=== PATIENT | female | born 1945 | race Caucasian/White ===

== ENCOUNTER 2018-08-01 15:33 | Inpatient (IN) ==
[2018-08-01] MEDS ORDERED: 0.9 % Sodium Chloride 1,000 ML IVC ONE (15:44)
[2018-08-01] MEDS ORDERED: Ondansetron 4 MG/2 ML VIAL IVP ONE (15:44)
--- NOTE | 2018-08-01 15:50 | Emergency Department Note ---
Disposition Clinical Impression: Weakness, Hypokalemia Pneumonia Qualifiers: Pneumonia type: due to unspecified organism Laterality: left Lung location: lower lobe of lung Qualified Code(s): J18.1 - Lobar pneumonia, unspecified organism Disposition: Admitted As Inpatient Condition: Fair Referrals: Temo Madrigal MD [Primary Care Provider] - Time of Disposition: 18:28 General Adult HPI - General Stated complaint: Flu Time Seen by Provider: 08/01/18 15:38 Source: patient Mode of arrival: ambulatory Limitations: no limitations Nursing Notes Reviewed: Yes Vital Signs Reviewed: Yes - History of Present Illness HPI Narrative: 72-year-old female with a history of dementia, paroxysmal A. fib, hypertension presents from [facility] for concerns of generalized weakness. Patient's initial complaint was the flu however that was not mentioned during the history or physical exam. Patient states that she has had increased urination over the past 4 hours. Also notes increasing generalized weakness. Decreased appetite. Reports increased urinary frequency. Decreased by mouth intake. Patient has had some nausea vomiting and abdominal pain. Patient's also had some lower abdominal discomfort over the past 24 hours. Patient denies any chest pain, fevers or cough. Family at bedside states the patient has been intermittently confused as well over the past 24 hours. Patient states she has had developed worsening upper extremity tremors and has a possible diagnosis of parkinsonian. Patient's family states she does have a history of urinary tract infections. Presents with from [facility]. - Related Data Home Medications Medication Instructions Recorded Confirmed Alprazolam [Xanax] 0.25 mg PO TID PRN 10/16/15 09/26/16 Atorvastatin [Lipitor] 20 mg PO DAILY 10/16/15 09/26/16 Carbidopa/Levodopa [Sinemet] 1 tab PO BID 10/16/15 09/26/16 Cranberry 450 mg PO DAILY 10/16/15 09/26/16 Diltiazem HCl [Diltiazem 24Hr Cd] 120 mg PO DAILY 10/16/15 09/26/16 Divalproex (12 HR) [Depakote (12 250 mg PO BID 10/16/15 09/26/16 HR)] Ergocalciferol (VITAMIN D2) 50,000 unit PO QWEEK 10/16/15 09/26/16 [Vitamin D2 (50,000 UNIT)] Folic Acid 0.4 mg PO DAILY 10/16/15 09/26/16 Gabapentin [Neurontin] 800 mg PO TID 10/16/15 09/26/16 LevETIRAcetam [Keppra] 500 mg PO BID 10/16/15 09/26/16 Melatonin 5 mg PO HS 10/16/15 09/26/16 Mirabegron [Myrbetriq] 50 mg PO HS 10/16/15 09/26/16 Mirtazapine [Remeron] 15 mg PO HS 10/16/15 09/26/16 Omeprazole [PriLOSEC] 20 mg PO DAILY 10/16/15 09/26/16 Phenytoin [Dilantin] 100 mg PO TID 10/16/15 09/26/16 Ropinirole HCl [Requip] 2 mg PO HS 10/16/15 09/26/16 TraZODone 50 mg PO HS 10/16/15 09/26/16 Triamterene/HCTZ 37.5/25mg 1 tab PO QAM 10/16/15 09/26/16 [Dyazide] Bismuth Subsalicylate 30 ml PO Q4H PRN 03/22/16 09/26/16 [PEPTO-BISMOL (262mg/15mL) Susp] Budesonide/Formoterol 160/4.5 1 puff IH BIDR 03/22/16 09/26/16 [Symbicort 160/4.5] Cyclobenzaprine [Flexeril] 10 mg PO TID PRN 03/22/16 09/26/16 Nitrofurantoin (BID) [Macrobid] 100 mg PO DAILY 03/22/16 09/26/16 Ondansetron HCl 4 mg PO Q6H PRN 03/22/16 09/26/16 Potassium Chloride [K-Tab ER] 20 meq PO DAILY 03/22/16 09/26/16 Theophylline Anhydrous [Gary-24] 300 mg PO DAILY 03/22/16 09/26/16 Tiotropium [Spiriva] 18 mcg IH DAILY 03/22/16 09/26/16 Calcium Polycarbophil [Fiber 625 mg PO HS 09/26/16 09/26/16 Laxative] Cetirizine HCl [Zyrtec] 10 mg PO DAILY 09/26/16 09/26/16 Ketotifen Fumarate [Zaditor] 1 drp OP BID 09/26/16 09/26/16 Magnesium Hydroxide/Al Hydrox 30 ml PO HS 09/26/16 09/26/16 [Mag-Al Liquid] Polyethylene Glycol 3350 [MiraLAX 1 scoop PO DAILY 09/26/16 09/26/16 Powder Bulk 17.9 Oz] Sennosides [Senna] 17.2 mg PO BID 09/26/16 09/26/16 Threonine [l-Threonine] 200 mg PO BID 09/26/16 09/26/16 Previous Rx's Medication Instructions Recorded Docusate [Colace] 100 mg PO BID #30 capsule 03/22/16 Enoxaparin [Lovenox] 40 mg SQ DAILY #7 syr 09/29/16 Morphine Immed Rel [Morphine 15 mg PO BID #14 tablet 09/29/16 Sulfate] OxyCODONE Immed Rel [Roxicodone 5 5 mg PO Q4HR PRN #14 tablet 09/29/16 MG] Allergies Allergy/AdvReac Type Severity Reaction Status Date / Time IVP Dye Allergy Anaphylaxis Uncoded 09/26/16 00:29 All systems ED: reviewed and negative except as stated. Constitutional: Denies: fever Cardiovascular: Denies: chest pain Respiratory: Denies: cough Gastrointestinal: Reports: abdominal pain, nausea, vomiting, diarrhea Past Medical History - Past Medical History Source: patient, obtained from family Medical history: Reports: atrial fibrillation, GERD, hypertension, migraine, seizures, other Surgical history: Reports: hysterectomy, other Psychiatric history: Reports: anxiety POLISHER BRASS history: Reports: no POLISHER BRASS history - Social History Smoking Status: Former smoker Smokeless Tobacco Status: No Alcohol use: Reports: none Drug use: Reports: unknown Physical Exam - General Limitations: no limitations General appearance: alert, in no apparent distress - Head Head exam: atraumatic - Eye Eye exam: Present: normal appearance, PERRL, EOMI. Absent: miosis, mydriasis - ENT ENT exam: normal exam - Neck Neck exam: Present: normal inspection - Chest Chest inspection: Present: normal inspection - Respiratory Respiratory exam: Present: normal lung sounds bilaterally. Absent: respiratory distress - Cardiovascular Cardiovascular exam: Present: regular rate, normal rhythm. Absent: systolic murmur - Abdominal Exam Abdominal exam: Present: soft, Non-Tender. Absent: guarding, rebound - Extremities Exam Extremities exam: Present: normal inspection, pedal edema (Trace bilateral), other (Tremors of the upper extremity bilaterally.) - Back Exam Back exam: Present: normal inspection - Neurological Exam Neurological exam: Present: alert, oriented X3, CN II-XII intact - Expanded Neurological Exam Patient oriented to: Present: person, place, time Speech: Present: fluid speech Cranial nerves: EOM function (II, III, IV, ): Normal, facial sensation (V): Normal, facial palsy (VII): Normal, spinal accessory function (XI): Normal, tongue deviation (XII): Normal Motor strength - LUE: 5/5 Motor strength - RUE: 5/5 Motor strength - LLE: 4/5 Motor strength - RLE: 4/5 Coma Scale Eye Opening: Spontaneous Coma Scale Motor Response: Obeys Commands Coma Scale Verbal Response: Oriented Coma Scale Total: 15 - Skin Skin exam: Present: warm, dry, intact, normal color. Absent: rash Course Course Narrative: Patient's a 72-year-old female presents primarily for generalized weakness. Concerns initially for metabolic as well as infectious etiology. Patient's daughter states she has has been having higher blood sugars with no history of diabetes. Patient also has history of UTI with increased urinary frequency. Will obtain extensive labs, urinalysis. Patient also get a CT of the head as well as abdomen pelvis given stated complaints of altered mental status periods of confusion and abdominal pain. Disposition likely be admission. - Reevaluation(s) Reevaluation #1: Patient's resting comfortably. No acute distress. Mental status unchanged. Family and patient is agreeable with admission. Time: 18:28 Vital Signs Temperature 99.0 F 08/01/18 15:48 Pulse Rate 96 08/01/18 15:48 Respiratory Rate 15 08/01/18 15:48 Blood Pressure 140/65 08/01/18 15:48 O2 Sat by Pulse Oximetry 95 08/01/18 15:48 Temperature 99.0 F 08/01/18 15:48 Pulse Rate 96 08/01/18 15:48 Respiratory Rate 15 08/01/18 15:48 Blood Pressure 140/65 08/01/18 15:48 O2 Sat by Pulse Oximetry 95 08/01/18 15:48 Oxygen Delivery Oxygen Delivery Room Air Medical Decision Making - [facility] Narrative Medical decision making narrative: Patient presented for generalized weakness. Patient had a fairly extensive ED evaluation with a CT of the head abdomen pelvis as well as a chest x-ray. Patient also had labs as well as urinalysis. Labs show mild leukocytosis. Patient also has findings of pneumonia on chest x-ray as well as CT. Patient was started on Levaquin. Patient's CT of the head was unremarkable. Patient's CT of the abdomen and pelvis shows no acute abnormality however the patient does have some mild CBD dilation. Correlate clinically the patient does not have any elevation in total bilirubin or significant right upper quadrant tenderness. Patient's abdominal pain was in the lower abdomen. Urinalysis was unremarkable. Given the patient's generalized weakness as well as findings of pneumonia on chest x-ray the patient will be admitted to hospital service for further evaluation and monitoring. Potassium was repleted. - Lab Data Lab results reviewed: Yes I reviewed the patient's lab results. Result diagrams: 08/01/18 16:16 08/01/18 16:16 Lab Results 08/01/18 08/01/18 08/01/18 Range/Units 16:16 16:16 16:16 WBC 12.4 H (4.3-11.1) K/mcL RBC 4.11 (3.82-4.97) M/mcL Hgb 12.4 (11.5-15.4) g/dL Hct 36.6 (35.3-44.9) % MCV 89.1 (83.0-100.0) fL MCH 30.2 (28.0-33.3) pg MCHC 33.9 (31.6-35.5) g/dL RDW 12.1 (11.5-14.5) % Plt Count 126 L (140-400) K/mcL MPV 9.8 (9.4-12.4) fL Immature Gran % 0.5 (0-4) % Seg Neutrophils % 84.3 % Lymphocytes % 6.6 % Monocytes % 8.3 % Eosinophils % 0.1 % Basophils % 0.2 % Neutrophils # 10.4 H (1.6-8.9) K/mcL Lymphocytes # 0.8 (0.6-4.6) K/mcL Monocytes # 1.0 (0.0-1.3) K/mcL Eosinophils # 0.0 (0.0-0.6) K/mcL Basophils # 0.0 (0.0-0.2) K/mcL PT 16.7 H (9.4-12.1) Seconds INR 1.5 VBG pH (7.32-7.42) pH Units VBG pCO2 (41-51) mmHg VBG pO2 (25-50) mmHg VBG HCO3 (21-27) mEq/L Sodium 130 L (136-145) mEq/L Potassium 3.1 L (3.5-5.1) mEq/L Chloride 93 L (98-107) mEq/L Carbon Dioxide 31 H (23-29) mEq/L BUN 19 (8-23) mg/dL Creatinine 0.60 (0.60-1.20) mg/dL Est GFR ( Amer) > 60 (> 60) Est GFR (Non-Af Amer) > 60 (> 60) BUN/Creatinine Ratio 32 H (6-26) Glucose 120 H (70-105) mg/dL Calculated Osmolality 273 L (280-300) Lactic Acid (0.5-2.2) mmol/L Calcium 8.6 (8.6-10.3) mg/dL Magnesium (1.6-2.6) mg/dL Total Bilirubin 0.6 (0.3-1.0) mg/dL Direct Bilirubin 0.3 H (0.0-0.2) mg/dL Indirect Bilirubin 0.3 (0.0-1.2) mg/dL AST 23 (13-39) Units/L ALT 6 L (7-52) Units/L Alkaline Phosphatase 63 (34-104) Units/L Troponin I < 0.03 (< 0.04) ng/mL Serum Total Protein 7.1 (6.4-8.9) g/dL Albumin 3.1 L (3.5-5.7) g/dL Globulin 4.0 H (2.4-3.5) g/dL Albumin/Globulin Ratio 0.8 L (1.1-2.2) Lipase 38 (11-82) Units/L Beta-Hydroxybutyric Acd (0.02-0.27) mmol/L Urine Color (Yellow) Urine Clarity (Clear) Urine pH (5.0-8.0) pH Units Ur Specific [place] (1.010-1.025) Urine Protein (Neg-Trace) mg/dL Urine Glucose (UA) (Normal) mg/dL Urine Ketones (Negative) mg/dL Urine Blood (Negative) Urine Nitrite (Negative) Urine Bilirubin (Negative) Urine Urobilinogen (Normal) mg/dL Ur Leukocyte Esterase (Negative) Urine Microscopic RBC (0-3) per hpf Urine Microscopic WBC (0-3) per hpf Ur Squamous Epith Cells (None-Few) per lpf Urine Bacteria (None-Few) per hpf Hyaline Casts (None-Few) per lpf Ur Culture Indicated? (NO) 08/01/18 08/01/18 08/01/18 Range/Units 16:16 16:16 16:40 WBC (4.3-11.1) K/mcL RBC (3.82-4.97) M/mcL Hgb (11.5-15.4) g/dL Hct (35.3-44.9) % MCV (83.0-100.0) fL MCH (28.0-33.3) pg MCHC (31.6-35.5) g/dL RDW (11.5-14.5) % Plt Count (140-400) K/mcL MPV (9.4-12.4) fL Immature Gran % (0-4) % Seg Neutrophils % % Lymphocytes % % Monocytes % % Eosinophils % % Basophils % % Neutrophils # (1.6-8.9) K/mcL Lymphocytes # (0.6-4.6) K/mcL Monocytes # (0.0-1.3) K/mcL Eosinophils # (0.0-0.6) K/mcL Basophils # (0.0-0.2) K/mcL PT (9.4-12.1) Seconds INR VBG pH 7.46 H (7.32-7.42) pH Units VBG pCO2 41 (41-51) mmHg VBG pO2 51 H (25-50) mmHg VBG HCO3 29 H (21-27) mEq/L Sodium (136-145) mEq/L Potassium (3.5-5.1) mEq/L Chloride (98-107) mEq/L Carbon Dioxide (23-29) mEq/L BUN (8-23) mg/dL Creatinine (0.60-1.20) mg/dL Est GFR ( Amer) (> 60) Est GFR (Non-Af Amer) (> 60) BUN/Creatinine Ratio (6-26) Glucose (70-105) mg/dL Calculated Osmolality (280-300) Lactic Acid 1.0 (0.5-2.2) mmol/L Calcium (8.6-10.3) mg/dL Magnesium (1.6-2.6) mg/dL Total Bilirubin (0.3-1.0) mg/dL Direct Bilirubin (0.0-0.2) mg/dL Indirect Bilirubin (0.0-1.2) mg/dL AST (13-39) Units/L ALT (7-52) Units/L Alkaline Phosphatase (34-104) Units/L Troponin I (< 0.04) ng/mL Serum Total Protein (6.4-8.9) g/dL Albumin (3.5-5.7) g/dL Globulin (2.4-3.5) g/dL Albumin/Globulin Ratio (1.1-2.2) Lipase (11-82) Units/L Beta-Hydroxybutyric Acd 0.48 H (0.02-0.27) mmol/L Urine Color (Yellow) Urine Clarity (Clear) Urine pH (5.0-8.0) pH Units Ur Specific [place] (1.010-1.025) Urine Protein (Neg-Trace) mg/dL Urine Glucose (UA) (Normal) mg/dL Urine Ketones (Negative) mg/dL Urine Blood (Negative) Urine Nitrite (Negative) Urine Bilirubin (Negative) Urine Urobilinogen (Normal) mg/dL Ur Leukocyte Esterase (Negative) Urine Microscopic RBC (0-3) per hpf Urine Microscopic WBC (0-3) per hpf Ur Squamous Epith Cells (None-Few) per lpf Urine Bacteria (None-Few) per hpf Hyaline Casts (None-Few) per lpf Ur Culture Indicated? (NO) 08/01/18 08/01/18 Range/Units 16:42 17:47 WBC (4.3-11.1) K/mcL RBC (3.82-4.97) M/mcL Hgb (11.5-15.4) g/dL Hct (35.3-44.9) % MCV (83.0-100.0) fL MCH (28.0-33.3) pg MCHC (31.6-35.5) g/dL RDW (11.5-14.5) % Plt Count (140-400) K/mcL MPV (9.4-12.4) fL Immature Gran % (0-4) % Seg Neutrophils % % Lymphocytes % % Monocytes % % Eosinophils % % Basophils % % Neutrophils # (1.6-8.9) K/mcL Lymphocytes # (0.6-4.6) K/mcL Monocytes # (0.0-1.3) K/mcL Eosinophils # (0.0-0.6) K/mcL Basophils # (0.0-0.2) K/mcL PT (9.4-12.1) Seconds INR VBG pH (7.32-7.42) pH Units VBG pCO2 (41-51) mmHg VBG pO2 (25-50) mmHg VBG HCO3 (21-27) mEq/L Sodium (136-145) mEq/L Potassium (3.5-5.1) mEq/L Chloride (98-107) mEq/L Carbon Dioxide (23-29) mEq/L BUN (8-23) mg/dL Creatinine (0.60-1.20) mg/dL Est GFR ( Amer) (> 60) Est GFR (Non-Af Amer) (> 60) BUN/Creatinine Ratio (6-26) Glucose (70-105) mg/dL Calculated Osmolality (280-300) Lactic Acid (0.5-2.2) mmol/L Calcium (8.6-10.3) mg/dL Magnesium 1.7 (1.6-2.6) mg/dL Total Bilirubin (0.3-1.0) mg/dL Direct Bilirubin (0.0-0.2) mg/dL Indirect Bilirubin (0.0-1.2) mg/dL AST (13-39) Units/L ALT (7-52) Units/L Alkaline Phosphatase (34-104) Units/L Troponin I (< 0.04) ng/mL Serum Total Protein (6.4-8.9) g/dL Albumin (3.5-5.7) g/dL Globulin (2.4-3.5) g/dL Albumin/Globulin Ratio (1.1-2.2) Lipase (11-82) Units/L Beta-Hydroxybutyric Acd (0.02-0.27) mmol/L Urine Color Dark Yellow (Yellow) Urine Clarity Clear (Clear) Urine pH 7.0 (5.0-8.0) pH Units Ur Specific [place] 1.015 (1.010-1.025) Urine Protein 30 H (Neg-Trace) mg/dL Urine Glucose (UA) Normal (Normal) mg/dL Urine Ketones 15 H (Negative) mg/dL Urine Blood Negative (Negative) Urine Nitrite Negative (Negative) Urine Bilirubin Small H (Negative) Urine Urobilinogen Normal (Normal) mg/dL Ur Leukocyte Esterase Trace H (Negative) Urine Microscopic RBC 3-5 H (0-3) per hpf Urine Microscopic WBC 3-5 H (0-3) per hpf Ur Squamous Epith Cells Many H (None-Few) per lpf Urine Bacteria Few (None-Few) per hpf Hyaline Casts None Seen (None-Few) per lpf Ur Culture Indicated? NO. A (NO) - Radiology Data Radiology results reviewed: Yes I reviewed the patient's radiology results. Abdomen/Pelvis CT 08/01/18 15:45 IMPRESSION: Consolidation within the lingula and patchy opacity in the left lower lobe, concerning for pneumonia. Focal narrowing of the distal transverse colon. Finding could represent artifact from peristalsis or possibly a stricture. Of note, there is no significant bowel distention proximal to this. Consider further evaluation with colonoscopy when the acute clinical syndrome has resolved. Large colonic stool burden. Gallbladder is not visualized. Correlate for history of cholecystectomy. Mild dilation of the common bile duct. If there has been a previous cholecystectomy, this is usually a normal finding. However, if the patient has not had a cholecystectomy, this finding would raise the possibility of a distal common duct obstruction. Correlate for clinical/laboratory evidence of biliary obstruction. D/ / 08/01/2018 18:06:43 Alex Cooper MD / jerrod Interpreting Provider: Alex Cooper MD Head CT 08/01/18 15:46 IMPRESSION: No acute intracranial abnormality. D/ / Dion Romero MD / Dion Romero MD Interpreting Provider: Dion Romero MD Chest X-Ray 08/01/18 15:47 IMPRESSION: 1. Low lung volumes with patchy density involving the left lung base which could represent atelectasis and/or infiltrate. D/ / Kan Nielsen MD / Kan Nielsen MD Interpreting Provider: Kan Nielsen MD - EKG Data EKG #1 EKG attestation: Yes I reviewed and interpreted this EKG. EKG shows normal: sinus rhythm Rate: tachycardia Rhythm: NSR [place]/QRS: left axis deviation Interpretation: no acute changes, nonspecific ST-T wave changes S.B.A.R. - S.B.A.R. Situation: Demographics Background: Presenting Complaint Assessment: Vital Signs, Course and respsone to treatment, Patient/Family Expectation Recommendation: Barrier(s) to disposition, Recommendation based on pending studies, treatments, or consults S.B.A.R. Report Given to: Dr. Wyatt [email or web address] Repor Time: 18:32
[2018-08-01 16:34] LABS: Basophils % 0.2 %; Eosinophils % 0.1 %; Hematocrit 36.6 % (35.3-44.9); Hemoglobin 12.4 g/dL (11.5-15.4); Immature Granulocytes % 0.5 % (0-4); Lymphocytes # 0.8 K/mcL (0.6-4.6); Lymphocytes % 6.6 %; Mean Corpuscular HGB Conc 33.9 g/dL (31.6-35.5); Mean Corpuscular Hemoglobin 30.2 pg (28.0-33.3); Mean Corpuscular Volume 89.1 fL (83.0-100.0); Mean Platelet Volume 9.8 fL (9.4-12.4); Monocytes % 8.3 %; Neutrophils # 10.4 K/mcL (1.6-8.9); Platelet Count 126 K/mcL (140-400); Red Blood Count 4.11 M/mcL (3.82-4.97); Red Cell Distribution Width 12.1 % (11.5-14.5); Segmented Neutrophils % 84.3 %
[2018-08-01 16:39] LABS: INR 1.5; Prothrombin Time 16.7 Seconds (9.4-12.1)
[2018-08-01 16:49] LABS: VBG HCO3 29 mEq/L (21-27); VBG PCO2 41 mmHg (41-51); VBG PH 7.46 pH Units (7.32-7.42); VBG PO2 51 mmHg (25-50)
[2018-08-01 16:53] LABS: Bilirubin,Urine Small (Negative); Blood,Urine Negative (Negative); Clarity,Urine Clear (Clear); Color,Urine Dark Yellow (Yellow); Glucose,Urine (UA) Normal (Normal); Ketones,Urine 15 mg/dL (Negative); Leukocyte Esterase,Urine Trace (Negative); Nitrite,Urine Negative (Negative); Protein,Urine 30 mg/dL (Neg-Trace); Specific Gravity,Urine 1.015 (1.010-1.025); Urobilinogen,Urine Normal (Normal)
[2018-08-01 16:57] LABS: Hyaline Casts,Urine None Seen per lpf (None-Few); Squamous Epithelial Cell,Urine Many per lpf (None-Few)
[2018-08-01 17:02] LABS: Alanine Aminotransferase 6 Units/L (7-52); Albumin 3.1 g/dL (3.5-5.7); Albumin/Globulin Ratio 0.8 (1.1-2.2); Alkaline Phosphatase 63 Units/L (34-104); Aspartate Amino Transferase 23 Units/L (13-39); BUN/Creatinine Ratio 32 (6-26); Bilirubin,Direct 0.3 mg/dL (0.0-0.2); Bilirubin,Indirect 0.3 mg/dL (0.0-1.2); Bilirubin,Total 0.6 mg/dL (0.3-1.0); Blood Urea Nitrogen 19 mg/dL (8-23); Calcium 8.6 mg/dL (8.6-10.3); Carbon Dioxide 31 mEq/L (23-29); Chloride 93 mEq/L (98-107); Glucose 120 mg/dL (70-105); Lipase 38 Units/L (11-82); Osmolality,Calculated 273 (280-300); Potassium 3.1 mEq/L (3.5-5.1); Sodium 130 mEq/L (136-145); Total Protein 7.1 g/dL (6.4-8.9); eGFR For Non-African Americans > 60 (> 60)
[2018-08-01 17:10] LABS: Troponin I < 0.03 ng/mL (< 0.04)
[2018-08-01 17:11] LABS: Bacteria,Urine Few per hpf (None-Few)
[2018-08-01] MEDS ORDERED: Levofloxacin 750 MG/150 ML 750 MG/150 ML BAG IVPB ONE (17:17)
[2018-08-01] MEDS ORDERED: Potassium Chloride Elixir 20 MEQ/15 ML UDC PO ONE (17:24)
[2018-08-01] MEDS ORDERED: Piperacillin/Tazobactam 3.375 GM in 0.9 % Sodium Chloride Mini Bag 100 ML IVPB ONE (18:23)
--- NOTE | 2018-08-01 18:23 | Emergency Department Note ---
Disposition Clinical Impression: Pneumonia Qualifiers: Pneumonia type: due to unspecified organism Laterality: left Lung location: lower lobe of lung Qualified Code(s): J18.1 - Lobar pneumonia, unspecified organism Disposition: Admitted As Inpatient Referrals: Temo Madrigal MD [Primary Care Provider] - General Adult HPI - General Chief complaint: ED Weakness Stated complaint: Flu Time Seen by Provider: 08/01/18 15:38 Source: patient Mode of arrival: ambulatory Limitations: no limitations - History of Present Illness Pain Scale: 0 - Related Data Home Medications Medication Instructions Recorded Confirmed Alprazolam [Xanax] 0.25 mg PO TID PRN 10/16/15 09/26/16 Atorvastatin [Lipitor] 20 mg PO DAILY 10/16/15 09/26/16 Carbidopa/Levodopa 10100 [Sinemet] 1 tab PO BID 10/16/15 09/26/16 Cranberry 450 mg PO DAILY 10/16/15 09/26/16 Diltiazem HCl [Diltiazem 24Hr Cd] 120 mg PO DAILY 10/16/15 09/26/16 Divalproex (12 HR) [Depakote (12 250 mg PO BID 10/16/15 09/26/16 HR)] Ergocalciferol (VITAMIN D2) 50,000 unit PO QWEEK 10/16/15 09/26/16 [Vitamin D2 (50,000 UNIT)] Folic Acid 0.4 mg PO DAILY 10/16/15 09/26/16 Gabapentin [Neurontin] 800 mg PO TID 10/16/15 09/26/16 LevETIRAcetam [Keppra] 500 mg PO BID 10/16/15 09/26/16 Melatonin 5 mg PO HS 10/16/15 09/26/16 Mirabegron [Myrbetriq] 50 mg PO HS 10/16/15 09/26/16 Mirtazapine [Remeron] 15 mg PO HS 10/16/15 09/26/16 Omeprazole [PriLOSEC] 20 mg PO DAILY 10/16/15 09/26/16 Phenytoin [Dilantin] 100 mg PO TID 10/16/15 09/26/16 Ropinirole HCl [Requip] 2 mg PO HS 10/16/15 09/26/16 TraZODone 50 mg PO HS 10/16/15 09/26/16 Triamterene/HCTZ 37.5/25mg 1 tab PO QAM 10/16/15 09/26/16 [Dyazide] Bismuth Subsalicylate 30 ml PO Q4H PRN 03/22/16 09/26/16 [PEPTO-BISMOL (262mg/15mL) Susp] Budesonide/Formoterol 160/4.5 1 puff IH BIDR 03/22/16 09/26/16 [Symbicort 160/4.5] Cyclobenzaprine [Flexeril] 10 mg PO TID PRN 03/22/16 09/26/16 Nitrofurantoin (BID) [Macrobid] 100 mg PO DAILY 03/22/16 09/26/16 Ondansetron HCl 4 mg PO Q6H PRN 03/22/16 09/26/16 Potassium Chloride [K-Tab ER] 20 meq PO DAILY 03/22/16 09/26/16 Theophylline Anhydrous [Gary-24] 300 mg PO DAILY 03/22/16 09/26/16 Tiotropium [Spiriva] 18 mcg IH DAILY 03/22/16 09/26/16 Calcium Polycarbophil [Fiber 625 mg PO HS 09/26/16 09/26/16 Laxative] Cetirizine HCl [Zyrtec] 10 mg PO DAILY 09/26/16 09/26/16 Ketotifen Fumarate [Zaditor] 1 drp OP BID 09/26/16 09/26/16 Magnesium Hydroxide/Al Hydrox 30 ml PO HS 09/26/16 09/26/16 [Mag-Al Liquid] Polyethylene Glycol 3350 [MiraLAX 1 scoop PO DAILY 09/26/16 09/26/16 Powder Bulk 17.9 Oz] Sennosides [Senna] 17.2 mg PO BID 09/26/16 09/26/16 Threonine [l-Threonine] 200 mg PO BID 09/26/16 09/26/16 Previous Rx's Medication Instructions Recorded Docusate [Colace] 100 mg PO BID #30 capsule 03/22/16 Enoxaparin [Lovenox] 40 mg SQ DAILY #7 syr 09/29/16 Morphine Immed Rel [Morphine 15 mg PO BID #14 tablet 09/29/16 Sulfate] OxyCODONE Immed Rel [Roxicodone 5 5 mg PO Q4HR PRN #14 tablet 09/29/16 MG] Allergies Allergy/AdvReac Type Severity Reaction Status Date / Time IVP Dye Allergy Anaphylaxis Uncoded 09/26/16 00:29 Constitutional: Denies: fever Cardiovascular: Denies: chest pain Respiratory: Denies: cough Gastrointestinal: Reports: abdominal pain, nausea, vomiting, diarrhea Past Medical History - Past Medical History Medical history: Reports: atrial fibrillation, GERD, hypertension, migraine, seizures, other Surgical history: Reports: hysterectomy, other Psychiatric history: Reports: anxiety [employer] history: Reports: no [employer]LOORWORK[employer]RI[employer]OR history - Social History Smoking Status: Former smoker Smokeless Tobacco Status: No Alcohol use: Reports: none Drug use: Reports: unknown Physical Exam - General Limitations: no limitations General appearance: alert, in no apparent distress Course Vital Signs Temperature 99.0 F 08/01/18 15:48 Pulse Rate 96 08/01/18 15:48 Respiratory Rate 15 08/01/18 15:48 Blood Pressure 140/65 08/01/18 15:48 O2 Sat by Pulse Oximetry 95 08/01/18 15:48 Temperature 99.0 F 08/01/18 15:48 Pulse Rate 96 08/01/18 15:48 Respiratory Rate 15 08/01/18 15:48 Blood Pressure 140/65 08/01/18 15:48 O2 Sat by Pulse Oximetry 95 08/01/18 15:48 Oxygen Delivery Oxygen Delivery Room Air Medical Decision Making - Lab Data Result diagrams: 08/01/18 16:16 08/01/18 16:16 Lab Results 08/01/18 08/01/18 08/01/18 Range/Units 16:16 16:16 16:16 WBC 12.4 H (4.3-11.1) K/mcL RBC 4.11 (3.82-4.97) M/mcL Hgb 12.4 (11.5-15.4) g/dL Hct 36.6 (35.3-44.9) % MCV 89.1 (83.0-100.0) fL MCH 30.2 (28.0-33.3) pg MCHC 33.9 (31.6-35.5) g/dL RDW 12.1 (11.5-14.5) % Plt Count 126 L (140-400) K/mcL MPV 9.8 (9.4-12.4) fL Immature Gran % 0.5 (0-4) % Seg Neutrophils % 84.3 % Lymphocytes % 6.6 % Monocytes % 8.3 % Eosinophils % 0.1 % Basophils % 0.2 % Neutrophils # 10.4 H (1.6-8.9) K/mcL Lymphocytes # 0.8 (0.6-4.6) K/mcL Monocytes # 1.0 (0.0-1.3) K/mcL Eosinophils # 0.0 (0.0-0.6) K/mcL Basophils # 0.0 (0.0-0.2) K/mcL PT 16.7 H (9.4-12.1) Seconds INR 1.5 VBG pH (7.32-7.42) pH Units VBG pCO2 (41-51) mmHg VBG pO2 (25-50) mmHg VBG HCO3 (21-27) mEq/L Sodium 130 L (136-145) mEq/L Potassium 3.1 L (3.5-5.1) mEq/L Chloride 93 L (98-107) mEq/L Carbon Dioxide 31 H (23-29) mEq/L BUN 19 (8-23) mg/dL Creatinine 0.60 (0.60-1.20) mg/dL Est GFR ( Amer) > 60 (> 60) Est GFR (Non-Af Amer) > 60 (> 60) BUN/Creatinine Ratio 32 H (6-26) Glucose 120 H (70-105) mg/dL Calculated Osmolality 273 L (280-300) Lactic Acid (0.5-2.2) mmol/L Calcium 8.6 (8.6-10.3) mg/dL Total Bilirubin 0.6 (0.3-1.0) mg/dL Direct Bilirubin 0.3 H (0.0-0.2) mg/dL Indirect Bilirubin 0.3 (0.0-1.2) mg/dL AST 23 (13-39) Units/L ALT 6 L (7-52) Units/L Alkaline Phosphatase 63 (34-104) Units/L Troponin I < 0.03 (< 0.04) ng/mL Serum Total Protein 7.1 (6.4-8.9) g/dL Albumin 3.1 L (3.5-5.7) g/dL Globulin 4.0 H (2.4-3.5) g/dL Albumin/Globulin Ratio 0.8 L (1.1-2.2) Lipase 38 (11-82) Units/L Beta-Hydroxybutyric Acd (0.02-0.27) mmol/L Urine Color (Yellow) Urine Clarity (Clear) Urine pH (5.0-8.0) pH Units Ur Specific [place] (1.010-1.025) Urine Protein (Neg-Trace) mg/dL Urine Glucose (UA) (Normal) mg/dL Urine Ketones (Negative) mg/dL Urine Blood (Negative) Urine Nitrite (Negative) Urine Bilirubin (Negative) Urine Urobilinogen (Normal) mg/dL Ur Leukocyte Esterase (Negative) Urine Microscopic RBC (0-3) per hpf Urine Microscopic WBC (0-3) per hpf Ur Squamous Epith Cells (None-Few) per lpf Urine Bacteria (None-Few) per hpf Hyaline Casts (None-Few) per lpf Ur Culture Indicated? (NO) 08/01/18 08/01/18 08/01/18 Range/Units 16:16 16:16 16:40 WBC (4.3-11.1) K/mcL RBC (3.82-4.97) M/mcL Hgb (11.5-15.4) g/dL Hct (35.3-44.9) % MCV (83.0-100.0) fL MCH (28.0-33.3) pg MCHC (31.6-35.5) g/dL RDW (11.5-14.5) % Plt Count (140-400) K/mcL MPV (9.4-12.4) fL Immature Gran % (0-4) % Seg Neutrophils % % Lymphocytes % % Monocytes % % Eosinophils % % Basophils % % Neutrophils # (1.6-8.9) K/mcL Lymphocytes # (0.6-4.6) K/mcL Monocytes # (0.0-1.3) K/mcL Eosinophils # (0.0-0.6) K/mcL Basophils # (0.0-0.2) K/mcL PT (9.4-12.1) Seconds INR VBG pH 7.46 H (7.32-7.42) pH Units VBG pCO2 41 (41-51) mmHg VBG pO2 51 H (25-50) mmHg VBG HCO3 29 H (21-27) mEq/L Sodium (136-145) mEq/L Potassium (3.5-5.1) mEq/L Chloride (98-107) mEq/L Carbon Dioxide (23-29) mEq/L BUN (8-23) mg/dL Creatinine (0.60-1.20) mg/dL Est GFR ( Amer) (> 60) Est GFR (Non-Af Amer) (> 60) BUN/Creatinine Ratio (6-26) Glucose (70-105) mg/dL Calculated Osmolality (280-300) Lactic Acid 1.0 (0.5-2.2) mmol/L Calcium (8.6-10.3) mg/dL Total Bilirubin (0.3-1.0) mg/dL Direct Bilirubin (0.0-0.2) mg/dL Indirect Bilirubin (0.0-1.2) mg/dL AST (13-39) Units/L ALT (7-52) Units/L Alkaline Phosphatase (34-104) Units/L Troponin I (< 0.04) ng/mL Serum Total Protein (6.4-8.9) g/dL Albumin (3.5-5.7) g/dL Globulin (2.4-3.5) g/dL Albumin/Globulin Ratio (1.1-2.2) Lipase (11-82) Units/L Beta-Hydroxybutyric Acd 0.48 H (0.02-0.27) mmol/L Urine Color (Yellow) Urine Clarity (Clear) Urine pH (5.0-8.0) pH Units Ur Specific [place] (1.010-1.025) Urine Protein (Neg-Trace) mg/dL Urine Glucose (UA) (Normal) mg/dL Urine Ketones (Negative) mg/dL Urine Blood (Negative) Urine Nitrite (Negative) Urine Bilirubin (Negative) Urine Urobilinogen (Normal) mg/dL Ur Leukocyte Esterase (Negative) Urine Microscopic RBC (0-3) per hpf Urine Microscopic WBC (0-3) per hpf Ur Squamous Epith Cells (None-Few) per lpf Urine Bacteria (None-Few) per hpf Hyaline Casts (None-Few) per lpf Ur Culture Indicated? (NO) 08/01/18 Range/Units 16:42 WBC (4.3-11.1) K/mcL RBC (3.82-4.97) M/mcL Hgb (11.5-15.4) g/dL Hct (35.3-44.9) % MCV (83.0-100.0) fL MCH (28.0-33.3) pg MCHC (31.6-35.5) g/dL RDW (11.5-14.5) % Plt Count (140-400) K/mcL MPV (9.4-12.4) fL Immature Gran % (0-4) % Seg Neutrophils % % Lymphocytes % % Monocytes % % Eosinophils % % Basophils % % Neutrophils # (1.6-8.9) K/mcL Lymphocytes # (0.6-4.6) K/mcL Monocytes # (0.0-1.3) K/mcL Eosinophils # (0.0-0.6) K/mcL Basophils # (0.0-0.2) K/mcL PT (9.4-12.1) Seconds INR VBG pH (7.32-7.42) pH Units VBG pCO2 (41-51) mmHg VBG pO2 (25-50) mmHg VBG HCO3 (21-27) mEq/L Sodium (136-145) mEq/L Potassium (3.5-5.1) mEq/L Chloride (98-107) mEq/L Carbon Dioxide (23-29) mEq/L BUN (8-23) mg/dL Creatinine (0.60-1.20) mg/dL Est GFR ( Amer) (> 60) Est GFR (Non-Af Amer) (> 60) BUN/Creatinine Ratio (6-26) Glucose (70-105) mg/dL Calculated Osmolality (280-300) Lactic Acid (0.5-2.2) mmol/L Calcium (8.6-10.3) mg/dL Total Bilirubin (0.3-1.0) mg/dL Direct Bilirubin (0.0-0.2) mg/dL Indirect Bilirubin (0.0-1.2) mg/dL AST (13-39) Units/L ALT (7-52) Units/L Alkaline Phosphatase (34-104) Units/L Troponin I (< 0.04) ng/mL Serum Total Protein (6.4-8.9) g/dL Albumin (3.5-5.7) g/dL Globulin (2.4-3.5) g/dL Albumin/Globulin Ratio (1.1-2.2) Lipase (11-82) Units/L Beta-Hydroxybutyric Acd (0.02-0.27) mmol/L Urine Color Dark Yellow (Yellow) Urine Clarity Clear (Clear) Urine pH 7.0 (5.0-8.0) pH Units Ur Specific [place] 1.015 (1.010-1.025) Urine Protein 30 H (Neg-Trace) mg/dL Urine Glucose (UA) Normal (Normal) mg/dL Urine Ketones 15 H (Negative) mg/dL Urine Blood Negative (Negative) Urine Nitrite Negative (Negative) Urine Bilirubin Small H (Negative) Urine Urobilinogen Normal (Normal) mg/dL Ur Leukocyte Esterase Trace H (Negative) Urine Microscopic RBC 3-5 H (0-3) per hpf Urine Microscopic WBC 3-5 H (0-3) per hpf Ur Squamous Epith Cells Many H (None-Few) per lpf Urine Bacteria Few (None-Few) per hpf Hyaline Casts None Seen (None-Few) per lpf Ur Culture Indicated? NO. A (NO) Attestation Statement - Attestation Attestation: I examined this patient and my medical decision-making was reviewed with the Resident Physician. I agree with the documented findings, disposition and treatment plan as described except to the extent set forth below. 72 year old female prsenet to the ED from intermediate for aMS and visual and auditoray hallucinations and POA at bedside states that she is concnerd for infection. Mariel has had a AMS workup with HCT and focus on infetions and it appears she has pneumoina like HCAP as she is from intermediate and there is also concerns for dilatated CBD and may need an MRCP to evlauate for gallstone although her LFTS and bilirubins are stable. levaquin given for therapy in the interim period and POA has agreed to admission to the hospital
[2018-08-01] MEDS ORDERED: Naloxone 0.4 MG/ML INJ IVP PRN (20:17)
[2018-08-01] MEDS ORDERED: MOM Conc 10 ML UD.LIQ PO ONE (20:24)
--- NOTE | 2018-08-01 20:30 | Internal Med History&Physical ---
<Daniel Zhang - Last Filed: 08/01/18 20:26> Date of Encounter: 08/01/18 Time of Encounter: 20:26 Internal Medicine - H&P: HPI Chief complaint: weakness Admitted From: Long-term Nursing Facility Plans for Post Hospital Care: Home History of present illness: Ms. Jackson is a 72 year old female presents with chief complaint of weakness. Patient reports she has had this weakness for the past 2 years specifically in her bilateral lower extremities. For this reason she has been in [place] for rehabilitation. She reports she is unable to walk without assistance. She denies that her weakness in her lower extremity has worsened and actually reports it has improved secondary to physical therapy. Patient also reports having a cough for the past 4 days including wheezing, sputum production. She denies shortness of breath but reports a subjective fever, chills. She also has bilateral maxillary sinus pressure and denies rhinorrhea, ear discharge, ear pain, eye discharge from eye pain. She also reports having nausea for the past few days and denies abdominal pain or vomiting. Patient's last bowel movement was 2 days ago and she denies hematochezia, melena. Emergency Department patient reports CT abdomen pelvis and was found to have left lower lobe pneumonia, and crease stool burden with mild dilation, mild. She does not require oxygen supplementation. Patient was given broad-spectrum IV antibiotics by emergency room and admitted for pneumonia. Past Med Surg Social Fam HX - Past Medical History Medical history: atrial fibrillation, GERD, hypertension, migraine, seizures, other Additional medical history: LUPUS, Psychiatric history: anxiety - Past Surgical History Surgical History: hysterectomy, other Additional surgical history: back sx, cataract removed - colonoscopy, partial hysterectomy - Social History Smoking Status: Former smoker Smokeless Tobacco Status: No Alcohol use: none Drug use: unknown - Family History Father Adopted: No Family Member Ethnicity: Non- Living Status: Hx Family Cardiac Disorders: Yes Hx Family Respiratory Disorders: No Hx Family Cancer: No Hx Family GI Disorders: No Hx Family Endocrine Disorder: Yes Hx Family Neuromuscular Disorders: No Hx Family Neurologic Disorders: No Hx Family HEENT Disorders: No Hx Family Autoimmune Disorders: No Brother Hx Family Cardiac Disorders: Yes ([place]) Internal Medicine - H&P: Meds Folic Acid 0.4 mg PO DAILY 10/16/15 [History] Gabapentin [Neurontin] 800 mg PO TID 10/16/15 [History] Ropinirole HCl [Requip] 2 mg PO HS 10/16/15 [History] Triamterene/HCTZ 37.5/25mg [Dyazide] 1 tab PO QAM 10/16/15 [History] Budesonide/Formoterol 160/4.5 [Symbicort 160/4.5] 1 puff IH BIDR 03/22/16 [ History] Ondansetron HCl 4 mg PO Q6H PRN 03/22/16 [History] Potassium Chloride [K-Tab ER] 20 meq PO DAILY 03/22/16 [History] Theophylline Anhydrous [Gary-24] 300 mg PO DAILY 03/22/16 [History] Tiotropium [Spiriva] 18 mcg IH DAILY 03/22/16 [History] Calcium Polycarbophil [Fiber Laxative] 625 mg PO HS 09/26/16 [History] Sennosides [Senna] 17.2 mg PO BID 09/26/16 [History] ALPRAZolam [Xanax 0.25 MG Tablet] 0.25 mg PO BID PRN 08/01/18 [History] ALPRAZolam [Xanax 1 MG Tablet] 1 mg PO HS PRN 08/01/18 [History] Atorvastatin Calcium [Lipitor] 20 mg PO HS 08/01/18 [History] Bisacodyl [Dulcolax] 10 mg RC DAILY PRN 08/01/18 [History] Carbidopa/Levodopa 10/100 [Sinemet 10/100] 1 tab PO QAM 08/01/18 [History] Cyclobenzaprine HCl 5 mg PO Q6H PRN 08/01/18 [History] Diltiazem HCl [Diltiazem ER] 120 mg PO DAILY 08/01/18 [History] Divalproex Sodium [Depakote] 250 mg PO BID 08/01/18 [History] Docusate [Colace] 100 mg PO BID PRN 08/01/18 [History] Ergocalciferol (VITAMIN D2) [Vitamin D2] 50,000 unit PO EUCEDA 08/01/18 [History] Famotidine [Pepcid] 20 mg PO HS 08/01/18 [History] Fluticasone Propionate Nasal [Flonase] 1 spr NS DAILY PRN 08/01/18 [History] Guaifenesin [Mucinex] 600 mg PO Q12H PRN 08/01/18 [History] Hydrocortisone 1% CREAM [Cortaid] 1 appl TP Q8H PRN 08/01/18 [History] LevETIRAcetam [Keppra] 500 mg PO BID 08/01/18 [History] Loratadine [Claritin] 10 mg PO DAILY 08/01/18 [History] Melatonin 5 mg PO HS 08/01/18 [History] Mirtazapine [Remeron] 30 mg PO HS 08/01/18 [History] Morphine Sulfate [Arymo ER] 15 mg PO BID 08/01/18 [History] Nitroglycerin [Nitrostat] 0.4 mg SL Q5M PRN MDD [id number] call 911 08/01/18 [ History] OxyCODONE Immed Rel [Roxicodone 10 MG] 10 mg PO Q8H PRN 08/01/18 [History] Oxybutynin Chloride [Ditropan Xl] 10 mg PO DAILY 08/01/18 [History] Phenazopyridine HCl [Urinary Pain Relief] 2 tab PO Q8H PRN 08/01/18 [History] Phenyleph/Pramoxin/Glycr/W.pet [Preparation H Cream] 26 gm RC Q6H PRN 08/01/18 [ History] Promethazine [Phenergan] 25 mg PO Q8HR PRN 08/01/18 [History] SUMAtriptan Succinate [Imitrex] 100 mg PO Q12H PRN 08/01/18 [History] 3 Allergy/AdvReac Type Severity Reaction Status Date / Time IVP Dye Allergy Anaphylaxis Uncoded 09/26/16 00:29 All Systems PM: A 10-system review of systems was performed and is negative for pertinent findings except as documented above in the HPI. Review of systems: Constitutional: Reports fevers chills HEENT: Denies headache, trauma, blurry vision, eye discharge, ear pain, ear discharge neck pain, sore throat, rhinorrhea Heart: Denies chest pain palpitations, LE edema Lungs: Denies shortness of breath reports cough Abdomen: Denies abdominal pain vomiting diarrhea. Reports nausea MSK: Denies back pain, falls, joint pain Kidney: Denies dysuria, hematuria Skin: Denies rash, ulcers Neuro: Denies numbness and tingling. Reports low bilateral lower extremity weakness Psych: denies axniety, depression - Constitutional Vitals: Temp Pulse Resp BP Pulse Ox 99.0 F 96 15 143/69 94 08/01/18 15:48 08/01/18 18:47 08/01/18 18:47 08/01/18 18:47 08/01/18 18:47 Exam: General: pleasant, without distress HEENT: Head atraumatic, normocephalic, EOMI, PERRL, absent ear discharge or trauma, dry Mucous Membranes, uvula midline Neck: nontender to palpation, absent lymphadenopathy, Cardiovascualr: Tachycardia, irregularly irregular absent, gallops or rubs, 1+ pedal edema bilaterally, radial pulses 2 out of 4 Lungs: Lower lobe ronchi absent wheezing. Patient not in respiratory distress Abdomen: Soft nontender, nondistended positive bowel sounds, absent hepatomegaly Skin: warm and dry, absent rash, absent open wounds and nodules MSK: absent clubbing, cyanosis, joints without swelling Neuro: Cranial nerves II through XII intact, UE and LE sensation equal bilaterally, UE strength 5/5 Plantar flexion bl 5/5. dorsiflexion 3/5 b/l. Knee flexion 5/5 b/l. Knee extension 4/5 bl. Hip flexion 4/5 b/l. Hip extension 5/5 b/l. , alert oriented 3, Psych: good insight and judgement, Internal Med - H&P Results - Labs CBC & Chem 7: 08/01/18 16:16 08/01/18 16:16 - Assessment and plan (1) Pneumonia Current Visit: Yes Status: Acute Assessment and plan: 72 y/o female presents with cc of weakness patient found to have LLL pna distinct ronchi on LLL CT abdomen/pelvis also shows evidence of this LLL infiltrate wbc 12.4, lactic acid 1.0 no in respiratory distress. not requiring O2. given vancomycin, Zosyn, Levaquin in the emergency room Bacterial pneumonia Plan: blood cultures, urine legionella and strep pneumonia antigen collected. Start IV Levaquin. Qualifiers: Pneumonia type: due to unspecified organism Laterality: left Lung location: lower lobe of lung Qualified Code(s): J18.1 - Lobar pneumonia, unspecified organism (2) Bilateral leg weakness Current Visit: Yes Status: Chronic Assessment and plan: Patient reports bilateral lower extremity weakness 2 years States she is in [facility] for physical therapy and her weakness has improved. On physical exam she does note a week dorsiflexion bilaterally 3/5. neuroexam non-focal nonlateralizing. PT/OT consult (3) DVT prophylaxis Current Visit: Yes Status: Acute Assessment and plan: heparin sq (4) Hypokalemia Current Visit: Yes Status: Acute Assessment and plan: presented with K+ of 3.1 will replace BMP in morning (5) Constipation Current Visit: Yes Status: Acute Assessment and plan: unclear etiology patient reported nausea on admission CT/abdomen shows large stool burden and focal narrowing of the distal transverse colon without proximal bowel distension. last bowel movement 2 days ago plan: milk of magnesia, cardiac diet, zofrna prn nausea. Qualifiers: Constipation type: unspecified constipation type Qualified Code(s): K59.00 - Constipation, unspecified (6) Common bile duct dilatation Current Visit: Yes Status: Acute Assessment and plan: Ct/abdomen pelvis shows mild dilation of common bile duct patient denies pervious abdominal surgeries t-jaimie, alk phose, ast alt WNL no further evaluation necessary as patient does not shows any signs of obstruction. (7) Afib Current Visit: Yes Status: Chronic Assessment and plan: History of paroxysmal A. fib Unclear patient is anticoagulated but her INR is 1.5 (medication list not updated) rate controlled currently Qualifiers: Atrial fibrillation type: paroxysmal Qualified Code(s): I48.0 - Paroxysmal atrial fibrillation (8) Dehydration Current Visit: Yes Status: Acute Assessment and plan: patient has dry mucous membranes hypochloremic, mild hyponatremia will give her additional 2L NC BMP in the morning. - Time Spent With Patient Total time spent is greater than 50% in coordination of care (as documented) at patient's floor/unit and/or counseling patient: <Gama Raines - Last Filed: 08/01/18 22:21> Date of Encounter: 08/01/18 Internal Medicine - H&P: HPI History of present illness: Ms. Jackson is a 72 year old female All Systems PM: A 10-system review of systems was performed and is negative for pertinent findings except as documented above in the HPI. - Constitutional Vitals: Temp Pulse Resp BP Pulse Ox 99.0 F 96 15 143/69 94 08/01/18 15:48 08/01/18 18:47 08/01/18 18:47 08/01/18 18:47 08/01/18 18:47 Internal Med - H&P Results - Labs CBC & Chem 7: 08/01/18 16:16 08/01/18 16:16 - Assessment and plan (1) Pneumonia Current Visit: Yes Status: Acute Qualifiers: Pneumonia type: due to unspecified organism Laterality: left Lung location: lower lobe of lung Qualified Code(s): J18.1 - Lobar pneumonia, unspecified organism (2) Bilateral leg weakness Current Visit: Yes Status: Chronic (3) DVT prophylaxis Current Visit: Yes Status: Acute (4) Afib Current Visit: Yes Status: Chronic Qualifiers: Atrial fibrillation type: paroxysmal Qualified Code(s): I48.0 - Paroxysmal atrial fibrillation (5) Hypokalemia Current Visit: Yes Status: Acute (6) Constipation Current Visit: Yes Status: Acute Qualifiers: Constipation type: unspecified constipation type Qualified Code(s): K59.00 - Constipation, unspecified (7) Common bile duct dilatation Current Visit: Yes Status: Acute (8) Dehydration Current Visit: Yes Status: Acute - Time Spent With Patient Total time spent is greater than 50% in coordination of care (as documented) at patient's floor/unit and/or counseling patient: - Attending Attestation Demetria Jackson is a 72 year old woman with a history of atrial fibrillation, hypertension, Parkinsonism, COPD and chronic anemia who is a current resident of [facility] who presents to the ER with the complaint of weakness and generalized fatigue. There are reports of AMS at her living facility. On arrival her vital signs were within normal limits. On my assessment she reports having increasing cough for the past 4-5 days which is productive of scant sputum. She has had decreased oral intake as well. Physical exam remarkable for very dry mucous membranes, rales on the left lower lung field, mild lower abdominal distension, no peripheral edema. Saturating 94- 95% on room air. Labs remarkable for WBC 12.4, Plts 126, INR 1.5, Na 130, K 3.1, Cl 93. Lactate wnl. CXR reviewed independently by me shows a developing infiltrate in the left lower lobe. Will admit as a case of pneumonia. The patient is clinically and hemodynamically stable not warranting continuation of vancomycin and double coverage. Obtain peripheral blood cultures, sputum culture, urine Legionella, S.pneumoniae urine antigen. Continue levofloxacin 750mg daily with plans for a 5 day course. Other issues: hyponatremia and hypochloremia; likely hypovolemic in origin from poor intake. Place on IV NS. Hypokalemia; supplement with 40mEq of KCL. Recheck lytes in the morning. Thrombocytopenia; appears chronic on review of old records showing a level as low as 90 in 2016. Can be on heparin subq for dvt prophylaxis.
[2018-08-01] MEDS: *HR* Heparin 5,000 UNIT/ML VIAL SQ SCH (21:11)
[2018-08-01] MEDS: 0.9 % Sodium Chloride 1,000 ML IVC SCH (21:12)
[2018-08-01] MEDS: Ondansetron 4 MG/2 ML VIAL IVP PRN (21:16)
[2018-08-02] MEDS: ALPRAZolam 1 MG TABLET PO PRN ×2 (00:31→20:36)
[2018-08-02 04:51] LABS: Basophils % 0.2 %; Eosinophils % 0.1 %; Hemoglobin 10.9 g/dL (11.5-15.4); Immature Granulocytes % 0.4 % (0-4); Lymphocytes # 0.8 K/mcL (0.6-4.6); Lymphocytes % 6.3 %; Mean Corpuscular Hemoglobin 29.2 pg (28.0-33.3); Mean Corpuscular Volume 88.5 fL (83.0-100.0); Mean Platelet Volume 10.4 fL (9.4-12.4); Monocytes # 1.1 K/mcL (0.0-1.3); Monocytes % 9.1 %; Neutrophils # 10.4 K/mcL (1.6-8.9); Platelet Count 130 K/mcL (140-400); Red Blood Count 3.73 M/mcL (3.82-4.97); Red Cell Distribution Width 12.4 % (11.5-14.5); Segmented Neutrophils % 83.9 %
[2018-08-02] MEDS: *HR* Heparin 5,000 UNIT/ML VIAL SQ SCH ×3 (05:10→21:37)
[2018-08-02 05:11] LABS: BUN/Creatinine Ratio 22 (6-26); Blood Urea Nitrogen 12 mg/dL (8-23); Calcium 7.9 mg/dL (8.6-10.3); Carbon Dioxide 28 mEq/L (23-29); Chloride 97 mEq/L (98-107); Glucose 92 mg/dL (70-105); Osmolality,Calculated 273 (280-300); Potassium 3.4 mEq/L (3.5-5.1); Sodium 132 mEq/L (136-145); eGFR For Non-African Americans > 60 (> 60)
[2018-08-02] MEDS: 0.9 % Sodium Chloride 1,000 ML IVC SCH (05:11)
[2018-08-02] MEDS ORDERED: Potassium Chloride Elixir 20 MEQ/15 ML UDC PO ONE (06:52)
[2018-08-02] MEDS ORDERED: Acetaminophen 325 MG TABLET PO PRN (08:41)
[2018-08-02] MEDS: Ondansetron 4 MG/2 ML VIAL IVP PRN ×2 (08:49→21:49)
--- NOTE | 2018-08-02 10:01 | Internal Med Progress Note ---
Hospitalist Progress Note - Encounter Date of Encounter: 08/02/18 Time of Encounter: 10:01 - Subjective Interval History: Patient examined at bedside, currently patient states he does not feel well complains of generalized malaise - Exam Vitals: Temp Pulse Resp BP Pulse Ox 100.5 F H 109 17 133/72 93 08/02/18 07:14 08/02/18 07:14 08/02/18 07:14 08/02/18 07:14 08/02/18 07:14 Exam: General: pleasant, without distress HEENT: Head atraumatic, normocephalic, EOMI, PERRL, absent ear discharge or trauma, dry Mucous Membranes, uvula midline Neck: nontender to palpation, absent lymphadenopathy, Cardiovascualr: Tachycardia, irregularly irregular absent, gallops or rubs, 1+ pedal edema bilaterally, radial pulses 2 out of 4 Lungs: Lower lobe ronchi absent wheezing. Patient not in respiratory distress Abdomen: Soft nontender, nondistended positive bowel sounds, absent hepatomegaly Skin: warm and dry, absent rash, absent open wounds and nodules MSK: absent clubbing, cyanosis, joints without swelling Neuro: Cranial nerves II through XII intact, UE and LE sensation equal bilaterally, UE strength 5/5 Plantar flexion bl 5/5. dorsiflexion 3/5 b/l. Knee flexion 5/5 b/l. Knee extension 4/5 bl. Hip flexion 4/5 b/l. Hip extension 5/5 b/l. , alert oriented 3, Psych: good insight and judgement, - Assessment and Plan (1) Pneumonia Current Visit: Yes Status: Acute Assessment and Plan: 72 y/o female presents with cc of weakness patient found to have LLL pna distinct ronchi on LLL CT abdomen/pelvis also shows evidence of this LLL infiltrate wbc 12.4, lactic acid 1.0 no in respiratory distress. not requiring O2. given vancomycin, Zosyn, Levaquin in the emergency room Bacterial pneumonia 08/02/2018 continue with Levaquin We will obtain respiratory panel sputum culture as well blood cultures pending Incentive spirometry Oxygen as needed (2) Bilateral leg weakness Current Visit: Yes Status: Chronic Assessment and Plan: Patient reports bilateral lower extremity weakness 2 years Patient is bedbound at [facility] and undergoes physical therapy PT/OT consult (3) DVT prophylaxis Current Visit: Yes Status: Acute Assessment and Plan: heparin sq (4) Afib Current Visit: Yes Status: Chronic Assessment and Plan: History of paroxysmal A. fib Continue with Cardizem she does not appear to be anticoagulated rate controlled currently (5) Hypokalemia Current Visit: Yes Status: Acute Assessment and Plan: will replace and monitor continue home supplement BMP in morning (6) Constipation Current Visit: Yes Status: Acute Assessment and Plan: Appears patient is on narcotics which could be contributing to her constipation. We will continue with stool softeners and add MiraLAX patient reported nausea on admission CT/abdomen shows large stool burden and focal narrowing of the distal transverse colon without proximal bowel distension. She did have a bowel movement today (7) Common bile duct dilatation Current Visit: Yes Status: Acute Assessment and Plan: Ct/abdomen pelvis shows mild dilation of common bile duct patient denies pervious abdominal surgeries t-jaimie, alk phose, ast alt WNL no further evaluation necessary as patient does not shows any signs of obstruction. (8) Dehydration Current Visit: Yes Status: Acute Assessment and Plan: This is improving we will continue to monitor hypochloremic, mild hyponatremia Encourage oral fluids BMP in the morning. - Time Spent with Patient Total time spent is greater than 50% in coordination of care (as documented) at patient's floor/unit and/or counseling patient: Internal Medicine: Result - Labs CBC & Chem 7: 08/02/18 04:20 08/02/18 04:20 Labs: Short CBC 08/02/18 Range/Units 04:20 WBC 12.4 H (4.3-11.1) K/mcL Hgb 10.9 L D (11.5-15.4) g/dL Hct 33.0 L (35.3-44.9) % Plt Count 130 L (140-400) K/mcL Neutrophils # 10.4 H (1.6-8.9) K/mcL BMP 08/02/18 04:20 Sodium 132 L Potassium 3.4 L Chloride 97 L Carbon Dioxide 28 BUN 12 Creatinine 0.54 L Glucose 92 Calcium 7.9 L - ABG Interpretation ABG results: PT/INR, D-dimer PT 16.7 Seconds (9.4-12.1) H 08/01/18 16:16 Consult Discharge Plan - Plan Referrals: Temo Madrigal MD [Primary Care Provider] - (1) Pneumonia Qualifiers: Pneumonia type: due to unspecified organism Laterality: left Lung location: lower lobe of lung Qualified Code(s): J18.1 - Lobar pneumonia, unspecified organism (4) Afib Qualifiers: Atrial fibrillation type: paroxysmal Qualified Code(s): I48.0 - Paroxysmal atrial fibrillation (6) Constipation Qualifiers: Constipation type: unspecified constipation type Qualified Code(s): K59.00 - Constipation, unspecified
[2018-08-02] MEDS: *HR* HYDROcodone/Acet 5/325 mg TABLET PO PRN ×2 (14:49→20:36)
--- NOTE | 2018-08-02 18:04 | Electrocardiograph Report ---
[place] [id number] Test Date: 2018-08-01 Pat Name: Demetria Jackson Department: [id number] Room: 3B44 Gender: F [employer]: : 1945 Requested By: Ezequiel Kaufman Order Number: [id number] Reading MD: Dmitriy Caballero Measurements Intervals [place] Rate: 104 P: -8 MA: 127 QRS: -30 QRSD: 100 T: 84 QT: 311 QTc: 409 Interpretive Statements Sinus tachycardia Left axis deviation Abnormal R-wave progression, late transition Nonspecific ST-T changes Electronically Signed On 08-02-2018 18:02:14 EDT by Dmitriy Caballero
[2018-08-02] MEDS: Levofloxacin 750 MG/150 ML 750 MG/150 ML BAG IVPB SCH (19:45)
[2018-08-02] MEDS ORDERED: Ondansetron ODT 4 MG TAB.RAPDIS PO PRN (19:56)
[2018-08-02] MEDS ORDERED: ALPRAZolam 0.25 MG TABLET PO PRN (19:56)
[2018-08-02] MEDS ORDERED: Nitroglycerin 0.4 MG TAB.SUBL SL PRN (19:56)
[2018-08-02] MEDS ORDERED: Fluticasone Propionate Nasal 50 MCG/SPRAY BOTTLE NS PRN (19:56)
[2018-08-02] MEDS ORDERED: NON-FORMULARY MEDICATION 1 EACH EACH (Morphine Sulfate [Arymo Er] 15 MG) PO SCH (21:00)
[2018-08-02] MEDS: Budesonide/Formoterol 160/4.5 1 PUFF INH IH SCH (21:33)
[2018-08-02] MEDS: Mirtazapine 15 MG TABLET PO SCH (21:38)
[2018-08-02] MEDS: Divalproex (12 HR) 250 MG TABLET PO SCH (21:38)
[2018-08-02] MEDS: levETIRAcetam 250 MG TABLET PO SCH (21:39)
[2018-08-02] MEDS: Famotidine 20 MG TABLET PO SCH (21:39)
[2018-08-02] MEDS: Gabapentin 400 MG CAPSULE PO SCH (21:39)
[2018-08-02] MEDS: rOPINIRole 1 MG TABLET PO SCH (21:49)
[2018-08-02] MEDS: Melatonin 3 MG TABLET PO SCH (21:49)
[2018-08-03] MEDS: *HR* Morphine Sulfate SR (12 HR) 15 MG TABLET.ER PO SCH ×3 (05:10→20:32)
[2018-08-03] MEDS: *HR* Heparin 5,000 UNIT/ML VIAL SQ SCH ×3 (06:09→20:33)
[2018-08-03 06:11] LABS: Basophils % 0.4 %; Eosinophils % 0.1 %; Hematocrit 31.5 % (35.3-44.9); Hemoglobin 10.4 g/dL (11.5-15.4); Immature Granulocytes % 0.4 % (0-4); Lymphocytes # 1.1 K/mcL (0.6-4.6); Lymphocytes % 14.8 %; Mean Corpuscular Hemoglobin 29.3 pg (28.0-33.3); Mean Corpuscular Volume 88.7 fL (83.0-100.0); Monocytes # 0.7 K/mcL (0.0-1.3); Monocytes % 9.1 %; Neutrophils # 5.6 K/mcL (1.6-8.9); Platelet Count 151 K/mcL (140-400); Red Blood Count 3.55 M/mcL (3.82-4.97); Red Cell Distribution Width 12.6 % (11.5-14.5); Segmented Neutrophils % 75.2 %
[2018-08-03 06:36] LABS: BUN/Creatinine Ratio 22 (6-26); Blood Urea Nitrogen 12 mg/dL (8-23); Calcium 8.1 mg/dL (8.6-10.3); Carbon Dioxide 26 mEq/L (23-29); Chloride 103 mEq/L (98-107); Glucose 92 mg/dL (70-105); Osmolality,Calculated 279 (280-300); Potassium 3.3 mEq/L (3.5-5.1); Sodium 135 mEq/L (136-145); eGFR For Non-African Americans > 60 (> 60)
[2018-08-03] MEDS ORDERED: Tiotropium 18 MCG inhalation IH SCH (09:00)
[2018-08-03] MEDS: levETIRAcetam 250 MG TABLET PO SCH ×2 (09:02→20:32)
[2018-08-03] MEDS: Diltiazem CD (24hr) 120 MG CAPSULE PO SCH (09:03)
[2018-08-03] MEDS: Loratadine 10 MG TABLET PO SCH (09:03)
[2018-08-03] MEDS: Folic Acid 1 MG TABLET PO SCH (09:03)
[2018-08-03] MEDS: Divalproex (12 HR) 250 MG TABLET PO SCH ×2 (09:03→20:32)
[2018-08-03] MEDS: Gabapentin 400 MG CAPSULE PO SCH ×3 (09:03→20:32)
--- NOTE | 2018-08-03 09:21 | Internal Med Progress Note ---
Hospitalist Progress Note - Encounter Date of Encounter: 08/03/18 Time of Encounter: 09:19 - Subjective Interval History: Patient examined at bedside, currently patient states she feels much better No resp distress cough improved - Exam Vitals: Temp Pulse Resp BP Pulse Ox 98.7 F 80 17 130/66 94 08/03/18 07:42 08/03/18 07:42 08/03/18 07:42 08/03/18 07:42 08/03/18 07:42 Exam: General: pleasant, without distress HEENT: Head atraumatic, normocephalic, EOMI, PERRL, absent ear discharge or trauma, dry Mucous Membranes, uvula midline Neck: nontender to palpation, absent lymphadenopathy, Cardiovascualr: Tachycardia, irregularly irregular absent, gallops or rubs, 1+ pedal edema bilaterally, radial pulses 2 out of 4 Lungs: Lower lobe ronchi absent wheezing. Patient not in respiratory distress Abdomen: Soft nontender, nondistended positive bowel sounds, absent hepatomegaly Skin: warm and dry, absent rash, absent open wounds and nodules MSK: absent clubbing, cyanosis, joints without swelling Neuro: Cranial nerves II through XII intact, UE and LE sensation equal bilaterally, UE strength 5/5 Plantar flexion bl 5/5. dorsiflexion 3/5 b/l. Knee flexion 5/5 b/l. Knee extension 4/5 bl. Hip flexion 4/5 b/l. Hip extension 5/5 b/l. , alert oriented 3, Psych: good insight and judgement, - Assessment and Plan (1) Pneumonia Current Visit: Yes Status: Acute Assessment and Plan: 72 y/o female presents with cc of weakness patient found to have LLL pna distinct ronchi on LLL CT abdomen/pelvis also shows evidence of this LLL infiltrate wbc 12.4, lactic acid 1.0 no in respiratory distress. not requiring O2. given vancomycin, Zosyn, Levaquin in the emergency room Bacterial pneumonia 08/02/2018 continue with Levaquin We will obtain respiratory panel sputum culture as well blood cultures pending Incentive spirometry Oxygen as needed 08/03/2018 awaitng resp panel white count improved . Cont incentive spirometry oxygen as needed cont with bronchodilators (2) Bilateral leg weakness Current Visit: Yes Status: Chronic Assessment and Plan: Patient reports bilateral lower extremity weakness 2 years Patient is bedbound at [facility] and undergoes physical therapy PT/OT consult (3) DVT prophylaxis Current Visit: Yes Status: Acute Assessment and Plan: heparin sq (4) Afib Current Visit: Yes Status: Chronic Assessment and Plan: History of paroxysmal A. fib Continue with Cardizem she does not appear to be anticoagulated rate controlled currently (5) Hypokalemia Current Visit: Yes Status: Acute Assessment and Plan: will replace and monitor continue home supplement BMP in morning (6) Constipation Current Visit: Yes Status: Acute Assessment and Plan: Appears patient is on narcotics which could be contributing to her constipation. We will continue with stool softeners and add MiraLAX patient reported nausea on admission CT/abdomen shows large stool burden and focal narrowing of the distal transverse colon without proximal bowel distension. Having BM (7) Common bile duct dilatation Current Visit: Yes Status: Acute Assessment and Plan: Ct/abdomen pelvis shows mild dilation of common bile duct patient denies pervious abdominal surgeries t-jaimie, alk phose, ast alt WNL no further evaluation necessary as patient does not shows any signs of obstruction. (8) Dehydration Current Visit: Yes Status: Acute Assessment and Plan: This is improving we will continue to monitor Encourage oral fluids BMP in the morning. - Time Spent with Patient Total time spent is greater than 50% in coordination of care (as documented) at patient's floor/unit and/or counseling patient: Internal Medicine: Result - Labs CBC & Chem 7: 08/03/18 05:31 08/03/18 05:31 Labs: Short CBC 08/03/18 Range/Units 05:31 WBC 7.4 (4.3-11.1) K/mcL Hgb 10.4 L (11.5-15.4) g/dL Hct 31.5 L (35.3-44.9) % Plt Count 151 (140-400) K/mcL Neutrophils # 5.6 (1.6-8.9) K/mcL BMP 08/03/18 05:31 Sodium 135 L Potassium 3.3 L Chloride 103 Carbon Dioxide 26 BUN 12 Creatinine 0.54 L Glucose 92 Calcium 8.1 L - ABG Interpretation ABG results: PT/INR, D-dimer PT 16.7 Seconds (9.4-12.1) H 08/01/18 16:16 Consult Discharge Plan - Plan Referrals: Temo Madrigal MD [Primary Care Provider] - (1) Pneumonia Qualifiers: Pneumonia type: due to unspecified organism Laterality: left Lung location: lower lobe of lung Qualified Code(s): J18.1 - Lobar pneumonia, unspecified organism (4) Afib Qualifiers: Atrial fibrillation type: paroxysmal Qualified Code(s): I48.0 - Paroxysmal atrial fibrillation (6) Constipation Qualifiers: Constipation type: unspecified constipation type Qualified Code(s): K59.00 - Constipation, unspecified
[2018-08-03 09:22] LABS: Adenovirus Not Detected (Not Detect); Bordetella Pertussis Not Detected (Not Detect); Chlamydophila pneumoniae Not Detected (Not Detect); Coronavirus 229E Not Detected (Not Detect); Coronavirus HKU1 Not Detected (Not Detect); Coronavirus NL63 Not Detected (Not Detect); Coronavirus OC43 Not Detected (Not Detect); Human Metapneumovirus Not Detected (Not Detect); Human Rhinovirus/Enterovirus Not Detected (Not Detect); Influenza A Subtype 2009 H1 Not Detected (Not Detect); Influenza A Untypeable Not Detected (Not Detect); Influenza B Not Detected (Not Detect); Mycoplasma pneumoniae Not Detected (Not Detect); Parainfluenza Virus 1 Not Detected (Not Detect); Parainfluenza Virus 2 Not Detected (Not Detect); Parainfluenza Virus 3 Not Detected (Not Detect); Parainfluenza Virus 4 Not Detected (Not Detect); Respiratory Syncytial Virus Not Detected (Not Detect)
[2018-08-03] MEDS: Budesonide/Formoterol 160/4.5 1 PUFF INH IH SCH ×2 (10:32→20:00)
[2018-08-03] MEDS: Tiotropium 18 MCG inhalation IH SCH (10:35)
[2018-08-03] MEDS: *HR* HYDROcodone/Acet 5/325 mg TABLET PO PRN (17:28)
[2018-08-03] MEDS: Levofloxacin 750 MG/150 ML 750 MG/150 ML BAG IVPB SCH (17:29)
[2018-08-03] MEDS: rOPINIRole 1 MG TABLET PO SCH (20:32)
[2018-08-03] MEDS: Mirtazapine 15 MG TABLET PO SCH (20:33)
[2018-08-03] MEDS: Famotidine 20 MG TABLET PO SCH (20:33)
[2018-08-03] MEDS: Melatonin 3 MG TABLET PO SCH (20:33)
[2018-08-04] MEDS: *HR* HYDROcodone/Acet 5/325 mg TABLET PO PRN (03:22)
[2018-08-04] MEDS: *HR* Heparin 5,000 UNIT/ML VIAL SQ SCH (04:57)
[2018-08-04] MEDS: levETIRAcetam 250 MG TABLET PO SCH (09:36)
[2018-08-04] MEDS: Loratadine 10 MG TABLET PO SCH (09:36)
[2018-08-04] MEDS: Diltiazem CD (24hr) 120 MG CAPSULE PO SCH (09:36)
[2018-08-04] MEDS: Divalproex (12 HR) 250 MG TABLET PO SCH (09:36)
[2018-08-04] MEDS: Folic Acid 1 MG TABLET PO SCH (09:37)
[2018-08-04] MEDS: Gabapentin 400 MG CAPSULE PO SCH (09:37)
[2018-08-04] MEDS: *HR* Morphine Sulfate SR (12 HR) 15 MG TABLET.ER PO SCH (09:37)
[2018-08-04] MEDS: Budesonide/Formoterol 160/4.5 1 PUFF INH IH SCH (10:00)
[2018-08-04] MEDS: Tiotropium 18 MCG inhalation IH SCH (10:01)
--- NOTE | 2018-08-04 11:38 | Discharge Summary ---
- NOTES TO OUTPATIENT PROVIDER Notes to Outpatient Provider: treated for pneumonia will cont levaquin for 5 days to complete 7 day course Orders not resulted at time of discharge: Pending orders 08/04/18 11:31 CBC [Complete Blood Count] [HEME] Stat Chem 7 [Basic Metabolic Panel] Stat Date of Encounter: 08/04/18 Time of Encounter: 11:33 - Discharge Diagnosis (1) Pneumonia Priority: Primary Status: Acute Assessment and Plan: 72 y/o female presents with cc of weakness patient found to have LLL pna distinct ronchi on LLL CT abdomen/pelvis also shows evidence of this LLL infiltrate wbc 12.4, lactic acid 1.0 no in respiratory distress. not requiring O2. given vancomycin, Zosyn, Levaquin in the emergency room Bacterial pneumonia 08/02/2018 continue with Levaquin We will obtain respiratory panel sputum culture as well blood cultures pending Incentive spirometry Oxygen as needed 08/03/2018 awaitng resp panel white count improved . Cont incentive spirometry oxygen as needed cont with bronchodilators Qualifiers: Pneumonia type: due to unspecified organism Laterality: left Lung location: lower lobe of lung Qualified Code(s): J18.1 - Lobar pneumonia, unspecified organism (2) Bilateral leg weakness Priority: Secondary Status: Chronic (3) Afib Priority: Secondary Status: Chronic Qualifiers: Atrial fibrillation type: paroxysmal Qualified Code(s): I48.0 - Paroxysmal atrial fibrillation (4) Hypokalemia Priority: Secondary Status: Acute (5) Constipation Priority: Secondary Status: Acute Qualifiers: Constipation type: unspecified constipation type Qualified Code(s): K59.00 - Constipation, unspecified (6) Common bile duct dilatation Priority: Secondary Status: Acute (7) Dehydration Priority: Secondary Status: Acute Hospital course: Ms. Jackson is a 72 year old female past medical hx of afib GERD HTN migraine seizure . Patient presented to [facility] ED with complaints of weakness. Patient resides in [place] She is normally bed bound She is receiving physical therapy, She has had a wheezing sputum production cough for past 3 days , subjective fevers and nausea CT of abd was obtained which did show left lower lobe pneumonia and a moderate stool burden. elevtaed white count low potassium Blood culture obtained She was given ATB and cont bronchodilators from home. Resp panel negative she was given laxative and had large stool. Her resp state improved and she felt better. She participated in PT, potassium replaced and improved. She will be discharged home with prescription of levaquin to complete a 7 day course She is hemodynamically stable and ready for discharge back to [facility] Discharge discussed with: patient - Time Spent with Patient Total time spent providing and/or coordinating discharge services: - Discharge Medications Prescriptions: levoFLOXacin [Levaquin] 750 mg PO DAILY #5 tablet Home Medications: Folic Acid 0.4 mg PO DAILY 10/16/15 [History] Gabapentin [Neurontin] 800 mg PO TID 10/16/15 [History] Ropinirole HCl [Requip] 2 mg PO HS 10/16/15 [History] Triamterene/HCTZ 37.5/25mg [Dyazide] 1 tab PO QAM 10/16/15 [History] Budesonide/Formoterol 160/4.5 [Symbicort 160/4.5] 1 puff IH BIDR 03/22/16 [ History] Ondansetron HCl 4 mg PO Q6H PRN 03/22/16 [History] Potassium Chloride [K-Tab ER] 20 meq PO DAILY 03/22/16 [History] Theophylline Anhydrous [Gary-24] 300 mg PO DAILY 03/22/16 [History] Tiotropium [Spiriva] 18 mcg IH DAILY 03/22/16 [History] Calcium Polycarbophil [Fiber Laxative] 625 mg PO HS 09/26/16 [History] Sennosides [Senna] 17.2 mg PO BID 09/26/16 [History] ALPRAZolam [Xanax 0.25 MG Tablet] 0.25 mg PO BID PRN 08/01/18 [History] ALPRAZolam [Xanax 1 MG Tablet] 1 mg PO HS PRN 08/01/18 [History] Atorvastatin Calcium [Lipitor] 20 mg PO HS 08/01/18 [History] Bisacodyl [Dulcolax] 10 mg RC DAILY PRN 08/01/18 [History] Carbidopa/Levodopa 10100 [Sinemet 10100] 1 tab PO QAM 08/01/18 [History] Cyclobenzaprine HCl 5 mg PO Q6H PRN 08/01/18 [History] Diltiazem HCl [Diltiazem ER] 120 mg PO DAILY 08/01/18 [History] Divalproex Sodium [Depakote] 250 mg PO BID 08/01/18 [History] Docusate [Colace] 100 mg PO BID PRN 08/01/18 [History] Ergocalciferol (VITAMIN D2) [Vitamin D2] 50,000 unit PO EUCEDA 08/01/18 [History] Famotidine [Pepcid] 20 mg PO HS 08/01/18 [History] Fluticasone Propionate Nasal [Flonase] 1 spr NS DAILY PRN 08/01/18 [History] Guaifenesin [Mucinex] 600 mg PO Q12H PRN 08/01/18 [History] Hydrocortisone 1% CREAM [Cortaid] 1 appl TP Q8H PRN 08/01/18 [History] LevETIRAcetam [Keppra] 500 mg PO BID 08/01/18 [History] Loratadine [Claritin] 10 mg PO DAILY 08/01/18 [History] Melatonin 5 mg PO HS 08/01/18 [History] Mirtazapine [Remeron] 30 mg PO HS 08/01/18 [History] Morphine Sulfate [Arymo ER] 15 mg PO BID 08/01/18 [History] Nitroglycerin [Nitrostat] 0.4 mg SL Q5M PRN MDD [id number] call 911 08/01/18 [ History] OxyCODONE Immed Rel [Roxicodone 10 MG] 10 mg PO Q8H PRN 08/01/18 [History] Oxybutynin Chloride [Ditropan Xl] 10 mg PO DAILY 08/01/18 [History] Phenazopyridine HCl [Urinary Pain Relief] 2 tab PO Q8H PRN 08/01/18 [History] Phenyleph/Pramoxin/Glycr/W.pet [Preparation H Cream] 26 gm RC Q6H PRN 08/01/18 [ History] Promethazine [Phenergan] 25 mg PO Q8HR PRN 08/01/18 [History] SUMAtriptan Succinate [Imitrex] 100 mg PO Q12H PRN 08/01/18 [History] levoFLOXacin [Levaquin] 750 mg PO DAILY #5 tablet 08/04/18 [Rx] Allergies/Adverse Reactions: 3 Allergy/AdvReac Type Severity Reaction Status Date / Time amlodipine Allergy See Verified 08/02/18 23:44 Comments Donepezil [From Aricept] Allergy See Verified 08/02/18 23:44 Comments Iodinated Contrast- Oral and Allergy See Verified 08/02/18 23:44 IV Dye Comments iodine Allergy See Verified 08/02/18 23:44 Comments IVP Dye Allergy Anaphylaxis Uncoded 08/02/18 23:44 Date of admission: 08/02/18 01:35 Primary care physician: Temo Madrigal MD Discharging clinician: Chichi Simpson Anticipated date of discharge: 08/04/18 - Constitutional Vitals: Temp Pulse Resp BP Pulse Ox 97.7 F 67 16 116/66 96 08/04/18 07:47 08/04/18 07:47 08/04/18 10:02 08/04/18 07:47 08/04/18 10:02 Exam: General: pleasant, without distress HEENT: Head atraumatic, normocephalic, EOMI, PERRL, absent ear discharge or trauma, dry Mucous Membranes, uvula midline Neck: nontender to palpation, absent lymphadenopathy, Cardiovascualr: Tachycardia, irregularly irregular absent, gallops or rubs, 1+ pedal edema bilaterally, radial pulses 2 out of 4 Lungs: Lower lobe ronchi absent wheezing. Patient not in respiratory distress Abdomen: Soft nontender, nondistended positive bowel sounds, absent hepatomegaly Skin: warm and dry, absent rash, absent open wounds and nodules MSK: absent clubbing, cyanosis, joints without swelling Neuro: Cranial nerves II through XII intact, UE and LE sensation equal bilaterally, UE strength 5/5 Plantar flexion bl 5/5. dorsiflexion 3/5 b/l. Knee flexion 5/5 b/l. Knee extension 4/5 bl. Hip flexion 4/5 b/l. Hip extension 5/5 b/l. , alert oriented 3, Psych: good insight and judgement, - Patient Status Disposition: Home, Self-Care Condition: Fair Functional capacity at discharge: bed bound Overall status at discharge: patient is back to baseline - Discharge Instructions Follow Up With: Temo Madrigal MD [Primary Care Provider] - Forms: ED Satisfaction Letter - Diet and Activity Activity: as per physical therapy Diet: advance to your usual diet
[2018-08-04 12:23] VITALS: BP 95/61
[2018-08-04 12:39] LABS: Basophils % 0.7 %; Eosinophils # 0.3 K/mcL (0.0-0.6); Hemoglobin 11.4 g/dL (11.5-15.4); Immature Granulocytes % 0.7 % (0-4); Lymphocytes # 1.6 K/mcL (0.6-4.6); Lymphocytes % 28.8 %; Mean Corpuscular HGB Conc 32.6 g/dL (31.6-35.5); Mean Corpuscular Hemoglobin 29.2 pg (28.0-33.3); Mean Corpuscular Volume 89.7 fL (83.0-100.0); Mean Platelet Volume 9.4 fL (9.4-12.4); Monocytes # 0.4 K/mcL (0.0-1.3); Monocytes % 6.7 %; Neutrophils # 3.1 K/mcL (1.6-8.9); Platelet Count 184 K/mcL (140-400); Red Cell Distribution Width 13.2 % (11.5-14.5); Segmented Neutrophils % 58.1 %
[2018-08-04 13:18] LABS: BUN/Creatinine Ratio 16 (6-26); Blood Urea Nitrogen 9 mg/dL (8-23); Calcium 9.2 mg/dL (8.6-10.3); Carbon Dioxide 30 mEq/L (23-29); Chloride 100 mEq/L (98-107); Glucose 102 mg/dL (70-105); Osmolality,Calculated 275 (280-300); Potassium 4.5 mEq/L (3.5-5.1); Sodium 133 mEq/L (136-145); eGFR For Non-African Americans > 60 (> 60)
--- NOTE | 2018-08-04 13:31 | Physician Discharge Referral ---
ExtendedCare Referral Info Transfer To: ECF Provider in Charge: fern saravia Provider in Charge after Transfer: PCP Institutional Level of Care: Skilled - Diagnosis (1) Pneumonia Priority: Primary Status: Acute (2) Bilateral leg weakness Priority: Secondary Status: Chronic (3) Afib Priority: Secondary Status: Chronic (4) Hypokalemia Priority: Secondary Status: Acute (5) Constipation Priority: Secondary Status: Acute (6) Common bile duct dilatation Priority: Secondary Status: Acute (7) Dehydration Priority: Secondary Status: Acute Prognosis: Good Aware of Diagnosis: Patient - Transfer Medications Prescriptions: levoFLOXacin [Levaquin] 750 mg PO DAILY #5 tablet Home Medications: Folic Acid 0.4 mg PO DAILY 10/16/15 [History] Gabapentin [Neurontin] 800 mg PO TID 10/16/15 [History] Ropinirole HCl [Requip] 2 mg PO HS 10/16/15 [History] Triamterene/HCTZ 37.5/25mg [Dyazide] 1 tab PO QAM 10/16/15 [History] Budesonide/Formoterol 160/4.5 [Symbicort 160/4.5] 1 puff IH BIDR 03/22/16 [ History] Ondansetron HCl 4 mg PO Q6H PRN 03/22/16 [History] Potassium Chloride [K-Tab ER] 20 meq PO DAILY 03/22/16 [History] Theophylline Anhydrous [Gary-24] 300 mg PO DAILY 03/22/16 [History] Tiotropium [Spiriva] 18 mcg IH DAILY 03/22/16 [History] Calcium Polycarbophil [Fiber Laxative] 625 mg PO HS 09/26/16 [History] Sennosides [Senna] 17.2 mg PO BID 09/26/16 [History] ALPRAZolam [Xanax 0.25 MG Tablet] 0.25 mg PO BID PRN 08/01/18 [History] ALPRAZolam [Xanax 1 MG Tablet] 1 mg PO HS PRN 08/01/18 [History] Atorvastatin Calcium [Lipitor] 20 mg PO HS 08/01/18 [History] Bisacodyl [Dulcolax] 10 mg RC DAILY PRN 08/01/18 [History] Carbidopa/Levodopa 10 [Sinemet 10] 1 tab PO QAM 08/01/18 [History] Cyclobenzaprine HCl 5 mg PO Q6H PRN 08/01/18 [History] Diltiazem HCl [Diltiazem ER] 120 mg PO DAILY 08/01/18 [History] Divalproex Sodium [Depakote] 250 mg PO BID 08/01/18 [History] Docusate [Colace] 100 mg PO BID PRN 08/01/18 [History] Ergocalciferol (VITAMIN D2) [Vitamin D2] 50,000 unit PO EUCEDA 08/01/18 [History] Famotidine [Pepcid] 20 mg PO HS 08/01/18 [History] Fluticasone Propionate Nasal [Flonase] 1 spr NS DAILY PRN 08/01/18 [History] Guaifenesin [Mucinex] 600 mg PO Q12H PRN 08/01/18 [History] Hydrocortisone 1% CREAM [Cortaid] 1 appl TP Q8H PRN 08/01/18 [History] LevETIRAcetam [Keppra] 500 mg PO BID 08/01/18 [History] Loratadine [Claritin] 10 mg PO DAILY 08/01/18 [History] Melatonin 5 mg PO HS 08/01/18 [History] Mirtazapine [Remeron] 30 mg PO HS 08/01/18 [History] Morphine Sulfate [Arymo ER] 15 mg PO BID 08/01/18 [History] Nitroglycerin [Nitrostat] 0.4 mg SL Q5M PRN MDD [id number] call 911 08/01/18 [ History] OxyCODONE Immed Rel [Roxicodone 10 MG] 10 mg PO Q8H PRN 08/01/18 [History] Oxybutynin Chloride [Ditropan Xl] 10 mg PO DAILY 08/01/18 [History] Phenazopyridine HCl [Urinary Pain Relief] 2 tab PO Q8H PRN 08/01/18 [History] Phenyleph/Pramoxin/Glycr/W.pet [Preparation H Cream] 26 gm RC Q6H PRN 08/01/18 [ History] Promethazine [Phenergan] 25 mg PO Q8HR PRN 08/01/18 [History] SUMAtriptan Succinate [Imitrex] 100 mg PO Q12H PRN 08/01/18 [History] levoFLOXacin [Levaquin] 750 mg PO DAILY #5 tablet 08/04/18 [Rx] Allergies/Adverse Reactions: 3 Allergy/AdvReac Type Severity Reaction Status Date / Time amlodipine Allergy See Verified 08/02/18 23:44 Comments Donepezil [From Aricept] Allergy See Verified 08/02/18 23:44 Comments Iodinated Contrast- Oral and Allergy See Verified 08/02/18 23:44 IV Dye Comments iodine Allergy See Verified 08/02/18 23:44 Comments IVP Dye Allergy Anaphylaxis Uncoded 08/02/18 23:44 - Respiratory Orders Smoking Cessation: Smoking cessation has been advised. For more information, call the [employer] Tobacco Quit Line at 0-628-QOAI-NOW. - Rehabiliation Orders Rehab Orders: Evaluation for Physical Therapy - Diet Orders Regular CERTIFICATION: I certify that the transfer of the above named patient to an Extended Care Facility is necessary for the continuing treatment of the diagnosis listed. The above information is true and accurate reflection of patient's current condition. Confidential - Redisclosure prohibited without a patient's written consent.
== END 2018-08-04 15:45 | disposition home or self-care (01) | DRG 139 ==
LOC: EMEROOARM 15:33 → 3BNU 15:33
PROVIDERS: ADMIT Student in an Organized Health Care Education/Training Program; ATTEND Student in an Organized Health Care Education/Training Program

== ENCOUNTER 2018-09-02 16:51 | Observation (INO) ==
[2018-09-02 17:14] LABS: Basophils % 0.4 %; Eosinophils # 0.1 K/mcL (0.0-0.6); Eosinophils % 1.5 %; Hemoglobin 13.4 g/dL (11.5-15.4); Immature Granulocytes % 0.4 % (0-4); Lymphocytes # 1.7 K/mcL (0.6-4.6); Mean Corpuscular HGB Conc 31.9 g/dL (31.6-35.5); Mean Corpuscular Hemoglobin 28.7 pg (28.0-33.3); Mean Corpuscular Volume 89.9 fL (83.0-100.0); Mean Platelet Volume 10.3 fL (9.4-12.4); Monocytes # 0.6 K/mcL (0.0-1.3); Neutrophils # 4.7 K/mcL (1.6-8.9); Platelet Count 130 K/mcL (140-400); Red Blood Count 4.67 M/mcL (3.82-4.97); Red Cell Distribution Width 13.2 % (11.5-14.5); Segmented Neutrophils % 65.7 %
[2018-09-02 17:19] LABS: INR 1.2; Prothrombin Time 13.7 Seconds (9.4-12.1)
[2018-09-02 17:28] LABS: Troponin I < 0.03 ng/mL (< 0.04)
[2018-09-02 17:29] LABS: Alanine Aminotransferase 4 Units/L (7-52); Albumin 3.5 g/dL (3.5-5.7); Albumin/Globulin Ratio 0.9 (1.1-2.2); Alkaline Phosphatase 86 Units/L (34-104); Aspartate Amino Transferase 30 Units/L (13-39); BUN/Creatinine Ratio 31 (6-26); Bilirubin,Total 0.4 mg/dL (0.3-1.0); Blood Urea Nitrogen 23 mg/dL (8-23); Calcium 9.4 mg/dL (8.6-10.3); Carbon Dioxide 33 mEq/L (23-29); Chloride 92 mEq/L (98-107); Globulin 4.1 g/dL (2.4-3.5); Glucose 110 mg/dL (70-105); Osmolality,Calculated 280 (280-300); Potassium 3.4 mEq/L (3.5-5.1); Sodium 133 mEq/L (136-145); Total Protein 7.6 g/dL (6.4-8.9); eGFR For Non-African Americans > 60 (> 60)
[2018-09-02 17:40] LABS: Bilirubin,Urine Negative (Negative); Blood,Urine Negative (Negative); Clarity,Urine Cloudy (Clear); Color,Urine Dark Yellow (Yellow); Glucose,Urine (UA) Normal (Normal); Ketones,Urine Trace mg/dL (Negative); Leukocyte Esterase,Urine Trace (Negative); Nitrite,Urine Positive (Negative); PH,Urine 7.5 pH Units (5.0-8.0); Protein,Urine Trace mg/dL (Neg-Trace); Urobilinogen,Urine Normal (Normal)
[2018-09-02 17:42] LABS: Bacteria,Urine None Seen per hpf (None-Few); Hyaline Casts,Urine None Seen per lpf (None-Few); Squamous Epithelial Cell,Urine Many per lpf (None-Few)
[2018-09-02] MEDS ORDERED: cefTRIAXone 1,000 MG in Water for inj. (sterile) 20 ML 10 ML IVP ONE (17:55)
--- NOTE | 2018-09-02 18:13 | Emergency Department Note ---
Disposition Clinical Impression: Transient cerebral ischemia, UTI (urinary tract infection) Disposition: Still a Patient Referrals: Temo Madrigal MD [Primary Care Provider] - Forms: ED Satisfaction Letter Neuro HPI - General Chief Complaint: ED Neuro Symptoms/Deficit Stated Complaint: poss stroke Time Seen by Provider: 09/02/18 16:52 Source: patient, EMS Mode of arrival: EMS Limitations: no limitations Nursing Notes Reviewed: Yes Vital Signs Reviewed: Yes - History of Present Illness HPI Narrative: Patient presents to the ED via EMS as a possible stroke alert. Patient is from [facility]. Had an unwitnessed fall earlier today. Unsure if there is any LOC. Patient states she does not think that she passed out. She arrives to the ED because [facility] staff found the patient "slumped over". When they tried to arouse her. They noted some left-sided facial and arm weakness. Notes what prompted the ER visit. On arrival she had none of these symptoms. Patient is complaining of a headache, which is like her typical migraine. Denies any other complaints - Related Data Home Medications: Home Medications Medication Instructions Recorded Confirmed Folic Acid 0.4 mg PO DAILY 10/16/15 08/01/18 Gabapentin [Neurontin] 800 mg PO TID 10/16/15 08/01/18 Ropinirole HCl [Requip] 2 mg PO HS 10/16/15 08/01/18 Triamterene/HCTZ 37.5/25mg 1 tab PO QAM 10/16/15 08/01/18 [Dyazide] Budesonide/Formoterol 160/4.5 1 puff IH BIDR 03/22/16 08/01/18 [Symbicort 160/4.5] Ondansetron HCl 4 mg PO Q6H PRN 03/22/16 08/01/18 Potassium Chloride [K-Tab ER] 20 meq PO DAILY 03/22/16 08/01/18 Theophylline Anhydrous [Gary-24] 300 mg PO DAILY 03/22/16 08/01/18 Tiotropium [Spiriva] 18 mcg IH DAILY 03/22/16 08/01/18 Calcium Polycarbophil [Fiber 625 mg PO HS 09/26/16 08/01/18 Laxative] Sennosides [Senna] 17.2 mg PO BID 09/26/16 08/01/18 ALPRAZolam [Xanax 0.25 MG Tablet] 0.25 mg PO BID PRN 08/01/18 08/01/18 ALPRAZolam [Xanax 1 MG Tablet] 1 mg PO HS PRN 08/01/18 08/01/18 Atorvastatin Calcium [Lipitor] 20 mg PO HS 08/01/18 08/01/18 Bisacodyl [Dulcolax] 10 mg RC DAILY PRN 08/01/18 08/01/18 Carbidopa/Levodopa [Sinemet 1 tab PO QAM 08/01/18 08/01/18] Cyclobenzaprine HCl 5 mg PO Q6H PRN 08/01/18 08/01/18 Diltiazem HCl [Diltiazem ER] 120 mg PO DAILY 08/01/18 08/01/18 Divalproex Sodium [Depakote] 250 mg PO BID 08/01/18 08/01/18 Docusate [Colace] 100 mg PO BID PRN 08/01/18 08/01/18 Ergocalciferol (VITAMIN D2) 50,000 unit PO EUCEDA 08/01/18 08/01/18 [Vitamin D2] Famotidine [Pepcid] 20 mg PO HS 08/01/18 08/01/18 Fluticasone Propionate Nasal 1 spr NS DAILY PRN 08/01/18 08/01/18 [Flonase] Guaifenesin [Mucinex] 600 mg PO Q12H PRN 08/01/18 08/01/18 Hydrocortisone 1% CREAM [Cortaid] 1 appl TP Q8H PRN 08/01/18 08/01/18 LevETIRAcetam [Keppra] 500 mg PO BID 08/01/18 08/01/18 Loratadine [Claritin] 10 mg PO DAILY 08/01/18 08/01/18 Melatonin 5 mg PO HS 08/01/18 08/01/18 Mirtazapine [Remeron] 30 mg PO HS 08/01/18 08/01/18 Morphine Sulfate [Arymo ER] 15 mg PO BID 08/01/18 08/01/18 Nitroglycerin [Nitrostat] 0.4 mg SL Q5M PRN MDD [id number] call 08/01/18 08/01/18 911 OxyCODONE Immed Rel [Roxicodone 10 10 mg PO Q8H PRN 08/01/18 08/01/18 MG] Oxybutynin Chloride [Ditropan Xl] 10 mg PO DAILY 08/01/18 08/01/18 Phenazopyridine HCl [Urinary Pain 2 tab PO Q8H PRN 08/01/18 08/01/18 Relief] Phenyleph/Pramoxin/Glycr/W.pet 26 gm RC Q6H PRN 08/01/18 08/01/18 [Preparation H Cream] Promethazine [Phenergan] 25 mg PO Q8HR PRN 08/01/18 08/01/18 SUMAtriptan Succinate [Imitrex] 100 mg PO Q12H PRN 08/01/18 08/01/18 Previous Rx's Medication Instructions Recorded levoFLOXacin [Levaquin] 750 mg PO DAILY #5 tablet 08/04/18 Allergies/Adverse Reactions: Allergies Allergy/AdvReac Type Severity Reaction Status Date / Time amlodipine Allergy See Verified 08/02/18 23:44 Comments Donepezil [From Aricept] Allergy See Verified 08/02/18 23:44 Comments Iodinated Contrast- Oral and Allergy See Verified 08/02/18 23:44 IV Dye Comments iodine Allergy See Verified 08/02/18 23:44 Comments IVP Dye Allergy Anaphylaxis Uncoded 08/02/18 23:44 Review of Systems: As reviewed in the HPI. All other systems reviewed are negative or normal. Past Medical History - Past Medical History Attestation: Yes The following information was validated with the patient. 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 - Social History Smoking Status: Former smoker Smokeless Tobacco Status: No Alcohol use: Reports: none Drug use: Reports: unknown Physical Exam CONSTITUTIONAL: [chronically ill appearing, alert and in no acute distress] EYES: [EOMI, clear conjunctiva, PERRLA] HENT: [Normocephalic, atraumatic, moist mucus membranes, normal oropharynx, no hematomas] NECK: [normal inspection, full ROM, trachea midline, no obvious swelling] PULMONARY: [normal lung sounds bilaterally, normal chest rise and fall, no respiratory distress or stridor, no wheezes, no rales, no rhonchi CARDIOVASCULAR: [regular rate, regular rhythm, normal heart sounds, no murmurs, distal extremities are warm and well perfused] GASTROINSTESTINAL: [soft, non-tender, non-rigid, non-distended, no guarding, no rebound, normal bowel sounds] GENITOURINARY/RECTAL: [deferred] NEUROLOGIC: [Alert, oriented x3, normal speech, moves all extremities, GCS 15, cranial nerves II-12 intact, normal strength and sensation throughout] EXTREMITIES: [Normal inspection, full ROM, no tenderness, no pedal edema, normal capillary refill] MUSCULOSKELETAL: [no gross deformities, atraumatic, significant scoliosis] SKIN: [No cyanosis, no diaphoresis, normal color, warm, no rash] PSYCHIATRIC: [normal mood and affect] - General Limitations: no limitations General appearance: alert, in no apparent distress Course - Reevaluation(s) Reevaluation #1: patient to be signed out pending imaging. gave rocephin for UTI. WIll admit for TIA w/u/ Vital Signs Temperature 97.7 F 09/02/18 16:55 Pulse Rate 96 09/02/18 16:55 Respiratory Rate 96 09/02/18 16:55 Blood Pressure 137/94 09/02/18 16:55 O2 Sat by Pulse Oximetry 97 09/02/18 16:55 Temperature 97.7 F 09/02/18 16:55 Pulse Rate 96 09/02/18 16:55 Respiratory Rate 96 09/02/18 16:55 Blood Pressure 137/94 09/02/18 16:55 O2 Sat by Pulse Oximetry 97 09/02/18 16:55 Oxygen Delivery Oxygen Delivery Room Air Neuro Symptoms/Deficit - Lab Data Result diagrams: 09/02/18 16:56 09/02/18 16:56 Lab Results 09/02/18 09/02/18 09/02/18 Range/Units 16:56 16:56 16:56 WBC 7.2 (4.3-11.1) K/mcL RBC 4.67 (3.82-4.97) M/mcL Hgb 13.4 (11.5-15.4) g/dL Hct 42.0 (35.3-44.9) % MCV 89.9 (83.0-100.0) fL MCH 28.7 (28.0-33.3) pg MCHC 31.9 (31.6-35.5) g/dL RDW 13.2 (11.5-14.5) % Plt Count 130 L (140-400) K/mcL MPV 10.3 (9.4-12.4) fL Immature Gran % 0.4 (0-4) % Seg Neutrophils % 65.7 % Lymphocytes % 24.0 % Monocytes % 8.0 % Eosinophils % 1.5 % Basophils % 0.4 % Neutrophils # 4.7 (1.6-8.9) K/mcL Lymphocytes # 1.7 (0.6-4.6) K/mcL Monocytes # 0.6 (0.0-1.3) K/mcL Eosinophils # 0.1 (0.0-0.6) K/mcL Basophils # 0.0 (0.0-0.2) K/mcL PT 13.7 H (9.4-12.1) Seconds INR 1.2 Sodium 133 L (136-145) mEq/L Potassium 3.4 L (3.5-5.1) mEq/L Chloride 92 L (98-107) mEq/L Carbon Dioxide 33 H (23-29) mEq/L BUN 23 (8-23) mg/dL Creatinine 0.75 (0.60-1.20) mg/dL Est GFR ( Amer) > 60 (> 60) Est GFR (Non-Af Amer) > 60 (> 60) BUN/Creatinine Ratio 31 H (6-26) Glucose 110 H (70-105) mg/dL POC Glucose (70-99) mg/dL Calculated Osmolality 280 (280-300) Calcium 9.4 (8.6-10.3) mg/dL Total Bilirubin 0.4 (0.3-1.0) mg/dL AST 30 (13-39) Units/L ALT 4 L (7-52) Units/L Alkaline Phosphatase 86 (34-104) Units/L Troponin I < 0.03 (< 0.04) ng/mL Serum Total Protein 7.6 (6.4-8.9) g/dL Albumin 3.5 (3.5-5.7) g/dL Globulin 4.1 H (2.4-3.5) g/dL Albumin/Globulin Ratio 0.9 L (1.1-2.2) Urine Color (Yellow) Urine Clarity (Clear) Urine pH (5.0-8.0) pH Units Ur Specific [place] (1.010-1.025) Urine Protein (Neg-Trace) mg/dL Urine Glucose (UA) (Normal) mg/dL Urine Ketones (Negative) mg/dL Urine Blood (Negative) Urine Nitrite (Negative) Urine Bilirubin (Negative) Urine Urobilinogen (Normal) mg/dL Ur Leukocyte Esterase (Negative) Urine Microscopic RBC (0-3) per hpf Urine Microscopic WBC (0-3) per hpf Ur Squamous Epith Cells (None-Few) per lpf Urine Bacteria (None-Few) per hpf Hyaline Casts (None-Few) per lpf 09/02/18 09/02/18 Range/Units 16:58 17:30 WBC (4.3-11.1) K/mcL RBC (3.82-4.97) M/mcL Hgb (11.5-15.4) g/dL Hct (35.3-44.9) % MCV (83.0-100.0) fL MCH (28.0-33.3) pg MCHC (31.6-35.5) g/dL RDW (11.5-14.5) % Plt Count (140-400) K/mcL MPV (9.4-12.4) fL Immature Gran % (0-4) % Seg Neutrophils % % Lymphocytes % % Monocytes % % Eosinophils % % Basophils % % Neutrophils # (1.6-8.9) K/mcL Lymphocytes # (0.6-4.6) K/mcL Monocytes # (0.0-1.3) K/mcL Eosinophils # (0.0-0.6) K/mcL Basophils # (0.0-0.2) K/mcL PT (9.4-12.1) Seconds INR Sodium (136-145) mEq/L Potassium (3.5-5.1) mEq/L Chloride (98-107) mEq/L Carbon Dioxide (23-29) mEq/L BUN (8-23) mg/dL Creatinine (0.60-1.20) mg/dL Est GFR ( Amer) (> 60) Est GFR (Non-Af Amer) (> 60) BUN/Creatinine Ratio (6-26) Glucose (70-105) mg/dL POC Glucose 104 H (70-99) mg/dL Calculated Osmolality (280-300) Calcium (8.6-10.3) mg/dL Total Bilirubin (0.3-1.0) mg/dL AST (13-39) Units/L ALT (7-52) Units/L Alkaline Phosphatase (34-104) Units/L Troponin I (< 0.04) ng/mL Serum Total Protein (6.4-8.9) g/dL Albumin (3.5-5.7) g/dL Globulin (2.4-3.5) g/dL Albumin/Globulin Ratio (1.1-2.2) Urine Color Dark Yellow (Yellow) Urine Clarity Cloudy A (Clear) Urine pH 7.5 (5.0-8.0) pH Units Ur Specific [place] 1.020 (1.010-1.025) Urine Protein Trace (Neg-Trace) mg/dL Urine Glucose (UA) Normal (Normal) mg/dL Urine Ketones Trace H (Negative) mg/dL Urine Blood Negative (Negative) Urine Nitrite Positive A (Negative) Urine Bilirubin Negative (Negative) Urine Urobilinogen Normal (Normal) mg/dL Ur Leukocyte Esterase Trace H (Negative) Urine Microscopic RBC 5-15 H (0-3) per hpf Urine Microscopic WBC 5-15 H (0-3) per hpf Ur Squamous Epith Cells Many H (None-Few) per lpf Urine Bacteria None Seen (None-Few) per hpf Hyaline Casts None Seen (None-Few) per lpf TPA Checklist - LKW: 3-4.5 hrs Add. Warnings/Precautions Patient/family understanding: The patient/family members have been counseled and understood the risk, benefit , and alternatives of treatment. Attestation Statement - Attestation Attestation: I examined this patient and my medical decision-making was reviewed with the Resident Physician, Dr. Robles. I agree with the documented findings, disposition and treatment plan as described except to the extent set forth below. Patient is a 72-year-old white female brought from [facility] for evaluation of possible stroke alert. Patient arrives by EMS awake alert and oriented with a GCS 15 clear speech and complaining of mild generalized headache. It was reported by EMS on arrival that the patient had fallen earlier today she is on aspirin but no other blood thinners struck her head and they were doing scheduled neuro checks every 15 minutes. They report that an hour ago when they went to check on her she was slumped over in her chair and upon evaluation nurse noted facial droop and left-sided upper and lower extremity weakness. They called EMS for possible stroke. Patient arrives awake alert and oriented 4 moving all 4 extremities spontaneously she has no visible facial droop or slurred speech, denies any dizziness or vertigo no visual changes. Patient states she has a mild generalized headache but this feels typical for her migraine headaches. She is no visible hematoma or contusion to head. Patient denies any other pain complaints from the fall. Patient has some mild generalized bilateral lower extremity weakness against gravity but no focal deficits. I agree with patient's physical exam findings as documented. Vital signs are stable. Patient had an EKG showing a normal sinus rhythm without acute ischemia. Should had full lab evaluation as well as chest x-ray and CT head without contrast. Patient has remained neurologically intact and stable over time with no deficits on reevaluation. Patient's urinalysis showed positive UTI otherwise labs overall are unremarkable. Chest x-rays unremarkable. We are waiting CT head results and CT C-spine was negative for any injury. Plan at this time is to admit the patient for TIA and urinary tract infection, IV antibiotics were administered and we will sign out the patient to the toll collector team for CT results and found.
--- NOTE | 2018-09-02 19:03 | Emergency Department Note ---
Disposition Clinical Impression: Transient cerebral ischemia Qualifiers: Transient cerebral ischemia type: unspecified Qualified Code(s): G45.9 - Transient cerebral ischemic attack, unspecified UTI (urinary tract infection) Qualifiers: Urinary tract infection type: site unspecified Hematuria presence: without hematuria Qualified Code(s): N39.0 - Urinary tract infection, site not specified Disposition: Admitted As Inpatient Condition: Fair Referrals: Temo Madrigal MD [Primary Care Provider] - Forms: ED Satisfaction Letter Time of Disposition: 19:53 General Adult HPI - General Chief complaint: ED Neuro Symptoms/Deficit Stated complaint: poss stroke Time Seen by Provider: 09/02/18 16:52 Source: patient, EMS Mode of arrival: EMS Limitations: no limitations - History of Present Illness HPI Narrative: Patient was signed out by the prior provider. Please see their documentation for complete history and physical. Pain Scale: 0 - Related Data Home Medications Medication Instructions Recorded Confirmed Folic Acid 0.4 mg PO DAILY 10/16/15 08/01/18 Gabapentin [Neurontin] 800 mg PO TID 10/16/15 08/01/18 Ropinirole HCl [Requip] 2 mg PO HS 10/16/15 08/01/18 Triamterene/HCTZ 37.5/25mg 1 tab PO QAM 10/16/15 08/01/18 [Dyazide] Budesonide/Formoterol 160/4.5 1 puff IH BIDR 03/22/16 08/01/18 [Symbicort 160/4.5] Ondansetron HCl 4 mg PO Q6H PRN 03/22/16 08/01/18 Potassium Chloride [K-Tab ER] 20 meq PO DAILY 03/22/16 08/01/18 Theophylline Anhydrous [Gary-24] 300 mg PO DAILY 03/22/16 08/01/18 Tiotropium [Spiriva] 18 mcg IH DAILY 03/22/16 08/01/18 Calcium Polycarbophil [Fiber 625 mg PO HS 09/26/16 08/01/18 Laxative] Sennosides [Senna] 17.2 mg PO BID 09/26/16 08/01/18 ALPRAZolam [Xanax 0.25 MG Tablet] 0.25 mg PO BID PRN 08/01/18 08/01/18 ALPRAZolam [Xanax 1 MG Tablet] 1 mg PO HS PRN 08/01/18 08/01/18 Atorvastatin Calcium [Lipitor] 20 mg PO HS 08/01/18 08/01/18 Bisacodyl [Dulcolax] 10 mg RC DAILY PRN 08/01/18 08/01/18 Carbidopa/Levodopa 10 [Sinemet 1 tab PO QAM 08/01/18 08/01/18 10] Cyclobenzaprine HCl 5 mg PO Q6H PRN 08/01/18 08/01/18 Diltiazem HCl [Diltiazem ER] 120 mg PO DAILY 08/01/18 08/01/18 Divalproex Sodium [Depakote] 250 mg PO BID 08/01/18 08/01/18 Docusate [Colace] 100 mg PO BID PRN 08/01/18 08/01/18 Ergocalciferol (VITAMIN D2) 50,000 unit PO EUCEDA 08/01/18 08/01/18 [Vitamin D2] Famotidine [Pepcid] 20 mg PO HS 08/01/18 08/01/18 Fluticasone Propionate Nasal 1 spr NS DAILY PRN 08/01/18 08/01/18 [Flonase] Guaifenesin [Mucinex] 600 mg PO Q12H PRN 08/01/18 08/01/18 Hydrocortisone 1% CREAM [Cortaid] 1 appl TP Q8H PRN 08/01/18 08/01/18 LevETIRAcetam [Keppra] 500 mg PO BID 08/01/18 08/01/18 Loratadine [Claritin] 10 mg PO DAILY 08/01/18 08/01/18 Melatonin 5 mg PO HS 08/01/18 08/01/18 Mirtazapine [Remeron] 30 mg PO HS 08/01/18 08/01/18 Morphine Sulfate [Arymo ER] 15 mg PO BID 08/01/18 08/01/18 Nitroglycerin [Nitrostat] 0.4 mg SL Q5M PRN MDD [id number] call 08/01/18 08/01/18 911 OxyCODONE Immed Rel [Roxicodone 10 10 mg PO Q8H PRN 08/01/18 08/01/18 MG] Oxybutynin Chloride [Ditropan Xl] 10 mg PO DAILY 08/01/18 08/01/18 Phenazopyridine HCl [Urinary Pain 2 tab PO Q8H PRN 08/01/18 08/01/18 Relief] Phenyleph/Pramoxin/Glycr/W.pet 26 gm RC Q6H PRN 08/01/18 08/01/18 [Preparation H Cream] Promethazine [Phenergan] 25 mg PO Q8HR PRN 08/01/18 08/01/18 SUMAtriptan Succinate [Imitrex] 100 mg PO Q12H PRN 08/01/18 08/01/18 Previous Rx's Medication Instructions Recorded levoFLOXacin [Levaquin] 750 mg PO DAILY #5 tablet 08/04/18 Allergies Allergy/AdvReac Type Severity Reaction Status Date / Time amlodipine Allergy See Verified 08/02/18 23:44 Comments Donepezil [From Aricept] Allergy See Verified 08/02/18 23:44 Comments Iodinated Contrast- Oral and Allergy See Verified 08/02/18 23:44 IV Dye Comments iodine Allergy See Verified 08/02/18 23:44 Comments IVP Dye Allergy Anaphylaxis Uncoded 08/02/18 23:44 Past Medical History - Past Medical History Medical history: Reports: asthma, atrial fibrillation, COPD, dementia, GERD, hyperlipidemia, hypertension, migraine, seizures, SVT, other Surgical history: Reports: hysterectomy, other Psychiatric history: Reports: anxiety, depression IT OPERATIONS MANAGER history: 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 Nonfocal neurologic exam. Patient's ED evaluation discussed at bedside. Patient will be admitted for TIA workup. Patient was given aspirin. Agrees with plan of care. Time: 19:52 Vital Signs Temperature 97.7 F 09/02/18 16:55 Pulse Rate 96 09/02/18 16:55 Respiratory Rate 96 09/02/18 16:55 Blood Pressure 137/94 09/02/18 16:55 O2 Sat by Pulse Oximetry 97 09/02/18 16:55 Temperature 97.7 F 09/02/18 16:55 Pulse Rate 96 09/02/18 16:55 Respiratory Rate 96 09/02/18 16:55 Blood Pressure 137/94 09/02/18 16:55 O2 Sat by Pulse Oximetry 97 09/02/18 16:55 Oxygen Delivery Oxygen Delivery Room Air Medical Decision Making - Lab Data Lab results reviewed: Yes I reviewed the patient's lab results. Result diagrams: 09/02/18 16:56 09/02/18 16:56 Lab Results 09/02/18 09/02/18 09/02/18 Range/Units 16:56 16:56 16:56 WBC 7.2 (4.3-11.1) K/mcL RBC 4.67 (3.82-4.97) M/mcL Hgb 13.4 (11.5-15.4) g/dL Hct 42.0 (35.3-44.9) % MCV 89.9 (83.0-100.0) fL MCH 28.7 (28.0-33.3) pg MCHC 31.9 (31.6-35.5) g/dL RDW 13.2 (11.5-14.5) % Plt Count 130 L (140-400) K/mcL MPV 10.3 (9.4-12.4) fL Immature Gran % 0.4 (0-4) % Seg Neutrophils % 65.7 % Lymphocytes % 24.0 % Monocytes % 8.0 % Eosinophils % 1.5 % Basophils % 0.4 % Neutrophils # 4.7 (1.6-8.9) K/mcL Lymphocytes # 1.7 (0.6-4.6) K/mcL Monocytes # 0.6 (0.0-1.3) K/mcL Eosinophils # 0.1 (0.0-0.6) K/mcL Basophils # 0.0 (0.0-0.2) K/mcL PT 13.7 H (9.4-12.1) Seconds INR 1.2 Sodium 133 L (136-145) mEq/L Potassium 3.4 L (3.5-5.1) mEq/L Chloride 92 L (98-107) mEq/L Carbon Dioxide 33 H (23-29) mEq/L BUN 23 (8-23) mg/dL Creatinine 0.75 (0.60-1.20) mg/dL Est GFR ( Amer) > 60 (> 60) Est GFR (Non-Af Amer) > 60 (> 60) BUN/Creatinine Ratio 31 H (6-26) Glucose 110 H (70-105) mg/dL POC Glucose (70-99) mg/dL Calculated Osmolality 280 (280-300) Calcium 9.4 (8.6-10.3) mg/dL Total Bilirubin 0.4 (0.3-1.0) mg/dL AST 30 (13-39) Units/L ALT 4 L (7-52) Units/L Alkaline Phosphatase 86 (34-104) Units/L Troponin I < 0.03 (< 0.04) ng/mL Serum Total Protein 7.6 (6.4-8.9) g/dL Albumin 3.5 (3.5-5.7) g/dL Globulin 4.1 H (2.4-3.5) g/dL Albumin/Globulin Ratio 0.9 L (1.1-2.2) Urine Color (Yellow) Urine Clarity (Clear) Urine pH (5.0-8.0) pH Units Ur Specific [place] (1.010-1.025) Urine Protein (Neg-Trace) mg/dL Urine Glucose (UA) (Normal) mg/dL Urine Ketones (Negative) mg/dL Urine Blood (Negative) Urine Nitrite (Negative) Urine Bilirubin (Negative) Urine Urobilinogen (Normal) mg/dL Ur Leukocyte Esterase (Negative) Urine Microscopic RBC (0-3) per hpf Urine Microscopic WBC (0-3) per hpf Ur Squamous Epith Cells (None-Few) per lpf Urine Bacteria (None-Few) per hpf Hyaline Casts (None-Few) per lpf 09/02/18 09/02/18 Range/Units 16:58 17:30 WBC (4.3-11.1) K/mcL RBC (3.82-4.97) M/mcL Hgb (11.5-15.4) g/dL Hct (35.3-44.9) % MCV (83.0-100.0) fL MCH (28.0-33.3) pg MCHC (31.6-35.5) g/dL RDW (11.5-14.5) % Plt Count (140-400) K/mcL MPV (9.4-12.4) fL Immature Gran % (0-4) % Seg Neutrophils % % Lymphocytes % % Monocytes % % Eosinophils % % Basophils % % Neutrophils # (1.6-8.9) K/mcL Lymphocytes # (0.6-4.6) K/mcL Monocytes # (0.0-1.3) K/mcL Eosinophils # (0.0-0.6) K/mcL Basophils # (0.0-0.2) K/mcL PT (9.4-12.1) Seconds INR Sodium (136-145) mEq/L Potassium (3.5-5.1) mEq/L Chloride (98-107) mEq/L Carbon Dioxide (23-29) mEq/L BUN (8-23) mg/dL Creatinine (0.60-1.20) mg/dL Est GFR ( Amer) (> 60) Est GFR (Non-Af Amer) (> 60) BUN/Creatinine Ratio (6-26) Glucose (70-105) mg/dL POC Glucose 104 H (70-99) mg/dL Calculated Osmolality (280-300) Calcium (8.6-10.3) mg/dL Total Bilirubin (0.3-1.0) mg/dL AST (13-39) Units/L ALT (7-52) Units/L Alkaline Phosphatase (34-104) Units/L Troponin I (< 0.04) ng/mL Serum Total Protein (6.4-8.9) g/dL Albumin (3.5-5.7) g/dL Globulin (2.4-3.5) g/dL Albumin/Globulin Ratio (1.1-2.2) Urine Color Dark Yellow (Yellow) Urine Clarity Cloudy A (Clear) Urine pH 7.5 (5.0-8.0) pH Units Ur Specific [place] 1.020 (1.010-1.025) Urine Protein Trace (Neg-Trace) mg/dL Urine Glucose (UA) Normal (Normal) mg/dL Urine Ketones Trace H (Negative) mg/dL Urine Blood Negative (Negative) Urine Nitrite Positive A (Negative) Urine Bilirubin Negative (Negative) Urine Urobilinogen Normal (Normal) mg/dL Ur Leukocyte Esterase Trace H (Negative) Urine Microscopic RBC 5-15 H (0-3) per hpf Urine Microscopic WBC 5-15 H (0-3) per hpf Ur Squamous Epith Cells Many H (None-Few) per lpf Urine Bacteria None Seen (None-Few) per hpf Hyaline Casts None Seen (None-Few) per lpf - Radiology Data Radiology results reviewed: Yes I reviewed the patient's radiology results. Cervical Spine CT 09/02/18 17:03 IMPRESSION: No acute abnormality of the cervical spine. Multilevel degenerative changes of the cervical spine similar prior to exam. D/ / Neville Barksdale MD / Neville Barksdale MD Interpreting Provider: Neville Barksdale MD Head CT 09/02/18 17:03 IMPRESSION: No acute intracranial abnormality. D/ / Dmitriy Tran MD / Dmitriy Tran MD Interpreting Provider: Dmitriy Tran MD Chest X-Ray 09/02/18 17:05 IMPRESSION: No acute pulmonary disease. Calcific atherosclerotic disease aorta. If clinically there is concern of underlying rib fracture, sternal or other acute traumatic abnormality of the chest, then additional evaluation with dedicated imaging of the area of interest versus CT chest should be considered. D/ / Jamar Ruelas / Jamar Ruelas Interpreting Provider: Jamar Ruelas Dre - Dre Situation: Demographics Background: Presenting Complaint Assessment: Vital Signs, Course and respsone to treatment, Patient/Family Expectation Recommendation: Barrier(s) to disposition, Recommendation based on pending studies, treatments, or consults Dre Report Given to: Hospitalist Dre Stephenson Time: 19:53
[2018-09-02] MEDS ORDERED: Aspirin 325 MG TABLET PO ONE (19:40)
--- NOTE | 2018-09-02 20:20 | Emergency Department Note ---
Disposition Clinical Impression: Transient cerebral ischemia Qualifiers: Transient cerebral ischemia type: unspecified Qualified Code(s): G45.9 - Transient cerebral ischemic attack, unspecified UTI (urinary tract infection) Qualifiers: Urinary tract infection type: site unspecified Hematuria presence: without hematuria Qualified Code(s): N39.0 - Urinary tract infection, site not specified Disposition: Admitted As Inpatient Condition: Fair General Adult HPI - General Chief complaint: ED Neuro Symptoms/Deficit Stated complaint: poss stroke Time Seen by Provider: 09/02/18 16:52 Source: patient, EMS Mode of arrival: EMS Limitations: no limitations Nursing Notes Reviewed: Yes Vital Signs Reviewed: Yes - History of Present Illness Pain Scale: 0 - Related Data Home Medications Medication Instructions Recorded Confirmed Folic Acid 0.4 mg PO DAILY 10/16/15 08/01/18 Gabapentin [Neurontin] 800 mg PO TID 10/16/15 08/01/18 Ropinirole HCl [Requip] 2 mg PO HS 10/16/15 08/01/18 Triamterene/HCTZ 37.5/25mg 1 tab PO QAM 10/16/15 08/01/18 [Dyazide] Budesonide/Formoterol 160/4.5 1 puff IH BIDR 03/22/16 08/01/18 [Symbicort 160/4.5] Ondansetron HCl 4 mg PO Q6H PRN 03/22/16 08/01/18 Potassium Chloride [K-Tab ER] 20 meq PO DAILY 03/22/16 08/01/18 Theophylline Anhydrous [Gary-24] 300 mg PO DAILY 03/22/16 08/01/18 Tiotropium [Spiriva] 18 mcg IH DAILY 03/22/16 08/01/18 Calcium Polycarbophil [Fiber 625 mg PO HS 09/26/16 08/01/18 Laxative] Sennosides [Senna] 17.2 mg PO BID 09/26/16 08/01/18 ALPRAZolam [Xanax 0.25 MG Tablet] 0.25 mg PO BID PRN 08/01/18 08/01/18 ALPRAZolam [Xanax 1 MG Tablet] 1 mg PO HS PRN 08/01/18 08/01/18 Atorvastatin Calcium [Lipitor] 20 mg PO HS 08/01/18 08/01/18 Bisacodyl [Dulcolax] 10 mg RC DAILY PRN 08/01/18 08/01/18 Carbidopa/Levodopa [Sinemet 1 tab PO QAM 08/01/18 08/01/18] Cyclobenzaprine HCl 5 mg PO Q6H PRN 08/01/18 08/01/18 Diltiazem HCl [Diltiazem ER] 120 mg PO DAILY 08/01/18 08/01/18 Divalproex Sodium [Depakote] 250 mg PO BID 08/01/18 08/01/18 Docusate [Colace] 100 mg PO BID PRN 08/01/18 08/01/18 Ergocalciferol (VITAMIN D2) 50,000 unit PO EUCEDA 08/01/18 08/01/18 [Vitamin D2] Famotidine [Pepcid] 20 mg PO HS 08/01/18 08/01/18 Fluticasone Propionate Nasal 1 spr NS DAILY PRN 08/01/18 08/01/18 [Flonase] Guaifenesin [Mucinex] 600 mg PO Q12H PRN 08/01/18 08/01/18 Hydrocortisone 1% CREAM [Cortaid] 1 appl TP Q8H PRN 08/01/18 08/01/18 LevETIRAcetam [Keppra] 500 mg PO BID 08/01/18 08/01/18 Loratadine [Claritin] 10 mg PO DAILY 08/01/18 08/01/18 Melatonin 5 mg PO HS 08/01/18 08/01/18 Mirtazapine [Remeron] 30 mg PO HS 08/01/18 08/01/18 Morphine Sulfate [Arymo ER] 15 mg PO BID 08/01/18 08/01/18 Nitroglycerin [Nitrostat] 0.4 mg SL Q5M PRN MDD [id number] call 08/01/18 08/01/18 911 OxyCODONE Immed Rel [Roxicodone 10 10 mg PO Q8H PRN 08/01/18 08/01/18 MG] Oxybutynin Chloride [Ditropan Xl] 10 mg PO DAILY 08/01/18 08/01/18 Phenazopyridine HCl [Urinary Pain 2 tab PO Q8H PRN 08/01/18 08/01/18 Relief] Phenyleph/Pramoxin/Glycr/W.pet 26 gm RC Q6H PRN 08/01/18 08/01/18 [Preparation H Cream] Promethazine [Phenergan] 25 mg PO Q8HR PRN 08/01/18 08/01/18 SUMAtriptan Succinate [Imitrex] 100 mg PO Q12H PRN 08/01/18 08/01/18 Previous Rx's Medication Instructions Recorded levoFLOXacin [Levaquin] 750 mg PO DAILY #5 tablet 08/04/18 Allergies Allergy/AdvReac Type Severity Reaction Status Date / Time amlodipine Allergy See Verified 08/02/18 23:44 Comments Donepezil [From Aricept] Allergy See Verified 08/02/18 23:44 Comments Iodinated Contrast- Oral and Allergy See Verified 08/02/18 23:44 IV Dye Comments iodine Allergy See Verified 08/02/18 23:44 Comments IVP Dye Allergy Anaphylaxis Uncoded 08/02/18 23:44 Past Medical History - Past Medical History Medical history: Reports: asthma, atrial fibrillation, COPD, dementia, GERD, hyperlipidemia, hypertension, migraine, seizures, SVT, other Surgical history: Reports: hysterectomy, other Psychiatric history: Reports: anxiety, depression LOOPING MACHINE 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 - Social History Smoking Status: Former smoker Smokeless Tobacco Status: No Alcohol use: Reports: none Drug use: Reports: unknown Physical Exam - General Limitations: no limitations General appearance: alert, in no apparent distress Course Vital Signs Temperature 97.7 F 09/02/18 16:55 Pulse Rate 96 09/02/18 16:55 Respiratory Rate 96 09/02/18 16:55 Blood Pressure 137/94 09/02/18 16:55 O2 Sat by Pulse Oximetry 97 09/02/18 16:55 Temperature 97.7 F 09/02/18 16:55 Pulse Rate 96 09/02/18 16:55 Respiratory Rate 96 09/02/18 16:55 Blood Pressure 137/94 09/02/18 16:55 O2 Sat by Pulse Oximetry 97 09/02/18 16:55 Oxygen Delivery Oxygen Delivery Room Air Medical Decision Making - Lab Data Lab results reviewed: Yes I reviewed the patient's lab results. Result diagrams: 09/02/18 16:56 09/02/18 16:56 Lab Results 09/02/18 09/02/18 09/02/18 Range/Units 16:56 16:56 16:56 WBC 7.2 (4.3-11.1) K/mcL RBC 4.67 (3.82-4.97) M/mcL Hgb 13.4 (11.5-15.4) g/dL Hct 42.0 (35.3-44.9) % MCV 89.9 (83.0-100.0) fL MCH 28.7 (28.0-33.3) pg MCHC 31.9 (31.6-35.5) g/dL RDW 13.2 (11.5-14.5) % Plt Count 130 L (140-400) K/mcL MPV 10.3 (9.4-12.4) fL Immature Gran % 0.4 (0-4) % Seg Neutrophils % 65.7 % Lymphocytes % 24.0 % Monocytes % 8.0 % Eosinophils % 1.5 % Basophils % 0.4 % Neutrophils # 4.7 (1.6-8.9) K/mcL Lymphocytes # 1.7 (0.6-4.6) K/mcL Monocytes # 0.6 (0.0-1.3) K/mcL Eosinophils # 0.1 (0.0-0.6) K/mcL Basophils # 0.0 (0.0-0.2) K/mcL PT 13.7 H (9.4-12.1) Seconds INR 1.2 Sodium 133 L (136-145) mEq/L Potassium 3.4 L (3.5-5.1) mEq/L Chloride 92 L (98-107) mEq/L Carbon Dioxide 33 H (23-29) mEq/L BUN 23 (8-23) mg/dL Creatinine 0.75 (0.60-1.20) mg/dL Est GFR ( Amer) > 60 (> 60) Est GFR (Non-Af Amer) > 60 (> 60) BUN/Creatinine Ratio 31 H (6-26) Glucose 110 H (70-105) mg/dL POC Glucose (70-99) mg/dL Calculated Osmolality 280 (280-300) Calcium 9.4 (8.6-10.3) mg/dL Total Bilirubin 0.4 (0.3-1.0) mg/dL AST 30 (13-39) Units/L ALT 4 L (7-52) Units/L Alkaline Phosphatase 86 (34-104) Units/L Troponin I < 0.03 (< 0.04) ng/mL Serum Total Protein 7.6 (6.4-8.9) g/dL Albumin 3.5 (3.5-5.7) g/dL Globulin 4.1 H (2.4-3.5) g/dL Albumin/Globulin Ratio 0.9 L (1.1-2.2) Urine Color (Yellow) Urine Clarity (Clear) Urine pH (5.0-8.0) pH Units Ur Specific [place] (1.010-1.025) Urine Protein (Neg-Trace) mg/dL Urine Glucose (UA) (Normal) mg/dL Urine Ketones (Negative) mg/dL Urine Blood (Negative) Urine Nitrite (Negative) Urine Bilirubin (Negative) Urine Urobilinogen (Normal) mg/dL Ur Leukocyte Esterase (Negative) Urine Microscopic RBC (0-3) per hpf Urine Microscopic WBC (0-3) per hpf Ur Squamous Epith Cells (None-Few) per lpf Urine Bacteria (None-Few) per hpf Hyaline Casts (None-Few) per lpf 09/02/18 09/02/18 Range/Units 16:58 17:30 WBC (4.3-11.1) K/mcL RBC (3.82-4.97) M/mcL Hgb (11.5-15.4) g/dL Hct (35.3-44.9) % MCV (83.0-100.0) fL MCH (28.0-33.3) pg MCHC (31.6-35.5) g/dL RDW (11.5-14.5) % Plt Count (140-400) K/mcL MPV (9.4-12.4) fL Immature Gran % (0-4) % Seg Neutrophils % % Lymphocytes % % Monocytes % % Eosinophils % % Basophils % % Neutrophils # (1.6-8.9) K/mcL Lymphocytes # (0.6-4.6) K/mcL Monocytes # (0.0-1.3) K/mcL Eosinophils # (0.0-0.6) K/mcL Basophils # (0.0-0.2) K/mcL PT (9.4-12.1) Seconds INR Sodium (136-145) mEq/L Potassium (3.5-5.1) mEq/L Chloride (98-107) mEq/L Carbon Dioxide (23-29) mEq/L BUN (8-23) mg/dL Creatinine (0.60-1.20) mg/dL Est GFR ( Amer) (> 60) Est GFR (Non-Af Amer) (> 60) BUN/Creatinine Ratio (6-26) Glucose (70-105) mg/dL POC Glucose 104 H (70-99) mg/dL Calculated Osmolality (280-300) Calcium (8.6-10.3) mg/dL Total Bilirubin (0.3-1.0) mg/dL AST (13-39) Units/L ALT (7-52) Units/L Alkaline Phosphatase (34-104) Units/L Troponin I (< 0.04) ng/mL Serum Total Protein (6.4-8.9) g/dL Albumin (3.5-5.7) g/dL Globulin (2.4-3.5) g/dL Albumin/Globulin Ratio (1.1-2.2) Urine Color Dark Yellow (Yellow) Urine Clarity Cloudy A (Clear) Urine pH 7.5 (5.0-8.0) pH Units Ur Specific [place] 1.020 (1.010-1.025) Urine Protein Trace (Neg-Trace) mg/dL Urine Glucose (UA) Normal (Normal) mg/dL Urine Ketones Trace H (Negative) mg/dL Urine Blood Negative (Negative) Urine Nitrite Positive A (Negative) Urine Bilirubin Negative (Negative) Urine Urobilinogen Normal (Normal) mg/dL Ur Leukocyte Esterase Trace H (Negative) Urine Microscopic RBC 5-15 H (0-3) per hpf Urine Microscopic WBC 5-15 H (0-3) per hpf Ur Squamous Epith Cells Many H (None-Few) per lpf Urine Bacteria None Seen (None-Few) per hpf Hyaline Casts None Seen (None-Few) per lpf - Radiology Data Radiology results reviewed: Yes I reviewed the patient's radiology results. Cervical Spine CT 09/02/18 17:03 IMPRESSION: No acute abnormality of the cervical spine. Multilevel degenerative changes of the cervical spine similar prior to exam. D/ / Neville Barksdale MD / Neville Barksdale MD Interpreting Provider: Neville Barksdale MD Head CT 09/02/18 17:03 IMPRESSION: No acute intracranial abnormality. D/ / Dmitriy Tran MD / Dmitriy Tran MD Interpreting Provider: Dmitriy Tran MD Chest X-Ray 09/02/18 17:05 IMPRESSION: No acute pulmonary disease. Calcific atherosclerotic disease aorta. If clinically there is concern of underlying rib fracture, sternal or other acute traumatic abnormality of the chest, then additional evaluation with dedicated imaging of the area of interest versus CT chest should be considered. D/ / Jamar Ruelas / Jamar Ruelas Interpreting Provider: Jamar Ruelas Attestation Statement - Attestation Attestation: I, Asher Draper MD, personally evaluated this patient and discussed their management with the resident physician. I reviewed the resident's note and agree with the documented findings, medical decision making, and plan of care. This patient was signed out at shift change from Dr. William Robles and Dr. Siomara Holloway. Please refer to their notes for complete details of the history and physical examination. He presented from a local correction with CVA-type symptoms over about the time she arrived here the symptoms resolved. At shift change she is awaiting results of her head CT before being admitted. On examination patient is well-developed thin elderly female in no acute distress. She is alert and oriented 2 but not to time. There is no cyanosis or diaphoresis. No gross focal neurological deficits noted. Head CT showed no acute abnormality. The hospitalist, Dr. Raines, was consulted and accepted admission of the patient.
[2018-09-02] MEDS ORDERED: Bisacodyl 10 MG RECTAL SUPPOSITORY RC PRN (20:22)
[2018-09-02] MEDS ORDERED: ALPRAZolam 0.25 MG TABLET PO PRN (20:22)
[2018-09-02] MEDS ORDERED: Fluticasone Propionate Nasal 50 MCG/SPRAY BOTTLE NS PRN (20:22)
[2018-09-02] MEDS ORDERED: Ondansetron ODT 4 MG TAB.RAPDIS PO PRN (20:22)
[2018-09-02] MEDS ORDERED: Potassium Chloride Elixir 20 MEQ/15 ML UDC PO ONE (20:27)
--- NOTE | 2018-09-02 20:35 | Internal Med History&Physical ---
Date of Encounter: 09/02/18 Time of Encounter: 20:33 Internal Medicine - H&P: HPI Chief complaint: AMS Admitted From: Long-term Nursing [facility] Plans for Post Hospital Care: Transfer Longterm Facility History of present illness: Demetria Jackson is a 72 year old woman with a history of atrial fibrillation, hypertension, Parkinsonism, COPD and chronic anemia who is a current resident of [facility] and was previously admitted here less than a month ago with complaints of generalized weakness and managed for left lower lobe pneumonia. She is brought in again via EMS from her fdc where it is stated that she had an unwitnessed fall earlier in the day in which she may have struck her head with no reported LOC but later on was noticed slumped over in her chair. Once aroused by staff they report noticing left facial droop and arm weakness. On arrival to the ER, none of these signs were present during evaluation. She did complain of a headache which she reported being due to her usual migraines. She reported having some dizziness at the time of her fall but no chest pain, dyspnea, diplopia. Her physical exam was benign with no visible contusion or hematomas on her head. Head CT was obtained, reviewed independently by me, and showed no acute ischemic findings or hemorrhage. Labs were grossly unremarkable. She was given 325mg ASA and 1gr ceftriaxone due to a slightly positive UA. She reports to me that she does have some dysuria at this time. She is admitted for further observation. She reports a remote smoking history. Reports CAD in father. Denies metallic hardware in body. All systems reviewed and negative except as listed above in the HPI. Past Med Surg Social Fam HX - Past Medical History Medical history: asthma, atrial fibrillation, COPD, dementia, GERD, hyperlipidemia, hypertension, migraine, seizures, SVT, other Additional medical history: LUPUS, parkinsons disease, RLS, Psychiatric history: anxiety, depression - Past Surgical History Surgical History: hysterectomy, other Additional surgical history: back sx, cataract removed - colonoscopy, partial hysterectomy - Social History Smoking Status: Former smoker Smokeless Tobacco Status: No Alcohol use: none Drug use: unknown - Family History Father Adopted: No Family Member Ethnicity: Non- Living Status: Hx Family Cardiac Disorders: Yes Hx Family Respiratory Disorders: No Hx Family Cancer: No Hx Family GI Disorders: No Hx Family Endocrine Disorder: Yes Hx Family Neuromuscular Disorders: No Hx Family Neurologic Disorders: No Hx Family HEENT Disorders: No Hx Family Autoimmune Disorders: No Brother Hx Family Cardiac Disorders: Yes ([place]) Internal Medicine - H&P: Meds Folic Acid 0.4 mg PO DAILY 10/16/15 [History] Gabapentin [Neurontin] 800 mg PO TID 10/16/15 [History] Ropinirole HCl [Requip] 2 mg PO HS 10/16/15 [History] Triamterene/HCTZ 37.5/25mg [Dyazide] 1 tab PO QAM 10/16/15 [History] Budesonide/Formoterol 160/4.5 [Symbicort 160/4.5] 1 puff IH BIDR 03/22/16 [ History] Ondansetron HCl 4 mg PO Q6H PRN 03/22/16 [History] Potassium Chloride [K-Tab ER] 20 meq PO DAILY 03/22/16 [History] Theophylline Anhydrous [Gary-24] 300 mg PO DAILY 03/22/16 [History] Tiotropium [Spiriva] 18 mcg IH DAILY 03/22/16 [History] Calcium Polycarbophil [Fiber Laxative] 625 mg PO HS 09/26/16 [History] Sennosides [Senna] 17.2 mg PO BID 09/26/16 [History] ALPRAZolam [Xanax 0.25 MG Tablet] 0.25 mg PO BID PRN 08/01/18 [History] ALPRAZolam [Xanax 1 MG Tablet] 1 mg PO HS PRN 08/01/18 [History] Atorvastatin Calcium [Lipitor] 20 mg PO HS 08/01/18 [History] Bisacodyl [Dulcolax] 10 mg RC DAILY PRN 08/01/18 [History] Carbidopa/Levodopa 10/100 [Sinemet 10/100] 1 tab PO QAM 08/01/18 [History] Cyclobenzaprine HCl 5 mg PO Q6H PRN 08/01/18 [History] Diltiazem HCl [Diltiazem ER] 120 mg PO DAILY 08/01/18 [History] Divalproex Sodium [Depakote] 250 mg PO BID 08/01/18 [History] Docusate [Colace] 100 mg PO BID PRN 08/01/18 [History] Ergocalciferol (VITAMIN D2) [Vitamin D2] 50,000 unit PO EUCEDA 08/01/18 [History] Famotidine [Pepcid] 20 mg PO HS 08/01/18 [History] Fluticasone Propionate Nasal [Flonase] 1 spr NS DAILY PRN 08/01/18 [History] Guaifenesin [Mucinex] 600 mg PO Q12H PRN 08/01/18 [History] Hydrocortisone 1% CREAM [Cortaid] 1 appl TP Q8H PRN 08/01/18 [History] LevETIRAcetam [Keppra] 500 mg PO BID 08/01/18 [History] Loratadine [Claritin] 10 mg PO DAILY 08/01/18 [History] Melatonin 5 mg PO HS 08/01/18 [History] Mirtazapine [Remeron] 30 mg PO HS 08/01/18 [History] Morphine Sulfate [Arymo ER] 15 mg PO BID 08/01/18 [History] Nitroglycerin [Nitrostat] 0.4 mg SL Q5M PRN MDD [id number] call 911 08/01/18 [ History] OxyCODONE Immed Rel [Roxicodone 10 MG] 10 mg PO Q8H PRN 08/01/18 [History] Oxybutynin Chloride [Ditropan Xl] 10 mg PO DAILY 08/01/18 [History] Phenazopyridine HCl [Urinary Pain Relief] 2 tab PO Q8H PRN 08/01/18 [History] Phenyleph/Pramoxin/Glycr/W.pet [Preparation H Cream] 26 gm RC Q6H PRN 08/01/18 [ History] Promethazine [Phenergan] 25 mg PO Q8HR PRN 08/01/18 [History] SUMAtriptan Succinate [Imitrex] 100 mg PO Q12H PRN 08/01/18 [History] levoFLOXacin [Levaquin] 750 mg PO DAILY #5 tablet 08/04/18 [Rx] 3 Allergy/AdvReac Type Severity Reaction Status Date / Time amlodipine Allergy See Verified 08/02/18 23:44 Comments Donepezil [From Aricept] Allergy See Verified 08/02/18 23:44 Comments Iodinated Contrast- Oral and Allergy See Verified 08/02/18 23:44 IV Dye Comments iodine Allergy See Verified 08/02/18 23:44 Comments IVP Dye Allergy Anaphylaxis Uncoded 08/02/18 23:44 All Systems PM: A 10-system review of systems was performed and is negative for pertinent findings except as documented above in the HPI. - Constitutional Vitals: Temp Pulse Resp BP Pulse Ox 97.7 F 96 96 137/94 97 09/02/18 16:55 09/02/18 16:55 09/02/18 16:55 09/02/18 16:55 09/02/18 16:55 Exam: Vitals: Reviewed General: NAD, emaciated appearing. Skin: Pale, warm. HEENT: Dry mucous membranes. Mild conjunctivae pallor. Neck: No lymphadenopathy. No JVD. No carotid bruits. No palpable thyroid. Chest: Normal thoracic expansion. Normal breath sounds. Clear to auscultation. Heart: Irregularly irregular. No rubs or murmurs. Abdomen: Non-distended, soft and non-tender to palpation. No peritoneal reaction. Liver is normal in size. Spleen is not palpable. Extremities: No clubbing, cyanosis or edema. No calf tenderness. Normal distal pulses. Neurological: Awake, alert and oriented to person, place and time. No focal deficits. Moves all extremities actively. Psych: Affect appropriate. Internal Med - H&P Results - Labs CBC & Chem 7: 09/02/18 16:56 09/02/18 16:56 - Assessment and plan (1) Transient cerebral ischemia Current Visit: Yes Status: Acute Assessment and plan: Questionable history. Symptoms did not persist. Will obtain MRI in the morning. Placed on ASA. Continue statin. Qualifiers: Transient cerebral ischemia type: unspecified Qualified Code(s): G45.9 - Transient cerebral ischemic attack, unspecified (2) HTN (hypertension) Current Visit: Yes Status: Chronic Assessment and plan: Resume oral antihypertensives. Qualifiers: Hypertension type: essential hypertension Qualified Code(s): I10 - Essential (primary) hypertension (3) Afib Current Visit: Yes Status: Chronic Assessment and plan: Not on anticoagulation. Paroxsymal. Rate controlled. Will place on ASA 81mg daily for now. Qualifiers: Atrial fibrillation type: paroxysmal Qualified Code(s): I48.0 - Paroxysmal atrial fibrillation (4) COPD (chronic obstructive pulmonary disease) Current Visit: Yes Status: Chronic Assessment and plan: No signs of acute of exacerbation at this time. Will continue LABA/ICS and albuterol prn. Qualifiers: COPD type: chronic bronchitis Chronic bronchitis type: simple Qualified Code(s): J41.0 - Simple chronic bronchitis (5) Electrolyte imbalance Current Visit: Yes Status: Acute Assessment and plan: Noted to have hyponatremia, hypochloremia and hypokalemia. Suspect due to poor oral intake at the [facility] as confessed by the patient in the setting of clinical dehydration. Will give 2L IV NS to run over the next 24hrs and supplement K. Recheck lytes with Mg. (6) Dehydration Current Visit: Yes Status: Acute Assessment and plan: IVF as stated above. (7) Parkinsons disease Current Visit: Yes Status: Chronic Assessment and plan: Continue dopamine agonists. (8) Thrombocytopenia Current Visit: Yes Status: Chronic Assessment and plan: Seems to be a longstanding recurring issue. Mild and with no signs of bleeding. Continue to monitor. (9) UTI (urinary tract infection) Current Visit: Yes Status: Acute Assessment and plan: Simple cystitis. No systemic signs of illness. Received 1gr ceftriaxone. Will start TMP/SMX 1 DS tab BID x 3 days. Qualifiers: Urinary tract infection type: acute cystitis Hematuria presence: without hematuria Qualified Code(s): N30.00 - Acute cystitis without hematuria (10) DVT prophylaxis Current Visit: Yes Status: Acute Assessment and plan: SubQ heparin. - Time Spent With Patient Total time spent is greater than 50% in coordination of care (as documented) at patient's floor/unit and/or counseling patient: Greater than 35 minutes
[2018-09-02] MEDS: 0.9 % Sodium Chloride 1,000 ML IVC SCH (21:34)
[2018-09-02] MEDS: SUMAtriptan succinate 50 MG TABLET PO PRN (21:35)
[2018-09-02] MEDS: *HR* Heparin 5,000 UNIT/ML VIAL SQ SCH (21:35)
[2018-09-02] MEDS: Divalproex (12 HR) 250 MG TABLET PO SCH (21:36)
[2018-09-02] MEDS: levETIRAcetam 250 MG TABLET PO SCH (21:36)
[2018-09-02] MEDS: Gabapentin 400 MG CAPSULE PO SCH (21:37)
[2018-09-02] MEDS: Famotidine 20 MG TABLET PO SCH (21:37)
[2018-09-02] MEDS: Melatonin 3 MG TABLET PO SCH (21:37)
[2018-09-02] MEDS: Mirtazapine 15 MG TABLET PO SCH (21:38)
[2018-09-02] MEDS: rOPINIRole 1 MG TABLET PO SCH (21:38)
[2018-09-02] MEDS: Sennosides 8.6 MG TABLET PO SCH (21:38)
[2018-09-02] MEDS: Budesonide/Formoterol 160/4.5 1 PUFF INH IH SCH (22:14)
[2018-09-03] MEDS ORDERED: *HR* Dextrose 50 % in Water (Syg) 50 ML SYRINGE IVP ONE (01:15)
[2018-09-03] MEDS: 0.9 % Sodium Chloride 1,000 ML IVC SCH ×2 (05:54→21:46)
--- NOTE | 2018-09-03 05:54 | Event Note ---
Date of Encounter: 09/03/18 Time of Encounter: 05:52 The patient had another transient episode of slurred speech and left sided weakness reported by nursing staff and witnessed by the resident on service lasting about 5 mins however at the time of my arrival she was AAOx3 and talking coherently. She complains of feeling tired and wanting to sleep but denied headache. Vitals within normal limits. Able to move all extremities actively. Scheduled for MRI this morning; unfortunately has an allergy to contrast/dye so cannot get an MRA however will order carotid duplex as she seems to have a waxing/waning phenomenon which could be concerning for embolic disease. Will also check an echo. ASA to continue. Will benefit from neurology evaluation.
[2018-09-03] MEDS: *HR* Heparin 5,000 UNIT/ML VIAL SQ SCH ×3 (06:04→21:46)
[2018-09-03 07:19] LABS: Basophils % 0.4 %; Eosinophils # 0.2 K/mcL (0.0-0.6); Eosinophils % 4.2 %; Hematocrit 38.2 % (35.3-44.9); Hemoglobin 12.2 g/dL (11.5-15.4); Immature Granulocytes % 0.2 % (0-4); Lymphocytes # 1.3 K/mcL (0.6-4.6); Lymphocytes % 27.1 %; Mean Corpuscular HGB Conc 31.9 g/dL (31.6-35.5); Mean Corpuscular Hemoglobin 28.7 pg (28.0-33.3); Mean Corpuscular Volume 89.9 fL (83.0-100.0); Mean Platelet Volume 10.3 fL (9.4-12.4); Monocytes # 0.4 K/mcL (0.0-1.3); Monocytes % 7.7 %; Neutrophils # 2.9 K/mcL (1.6-8.9); Platelet Count 117 K/mcL (140-400); Red Blood Count 4.25 M/mcL (3.82-4.97); Red Cell Distribution Width 13.3 % (11.5-14.5); Segmented Neutrophils % 60.4 %
[2018-09-03 07:40] LABS: BUN/Creatinine Ratio 36 (6-26); Blood Urea Nitrogen 18 mg/dL (8-23); Calcium 8.7 mg/dL (8.6-10.3); Carbon Dioxide 31 mEq/L (23-29); Chloride 97 mEq/L (98-107); Glucose 72 mg/dL (70-105); Magnesium 1.6 mg/dL (1.6-2.6); Osmolality,Calculated 280 (280-300); Potassium 3.5 mEq/L (3.5-5.1); Sodium 135 mEq/L (136-145); eGFR For Non-African Americans > 60 (> 60)
[2018-09-03] MEDS: Budesonide/Formoterol 160/4.5 1 PUFF INH IH SCH ×2 (08:22→20:55)
[2018-09-03] MEDS: Tiotropium 18 MCG inhalation IH SCH (08:24)
[2018-09-03] MEDS: Aspirin 81 MG TAB.CHEW PO SCH (09:40)
[2018-09-03] MEDS: levETIRAcetam 250 MG TABLET PO SCH ×2 (09:40→21:47)
[2018-09-03] MEDS: Loratadine 10 MG TABLET PO SCH (09:40)
[2018-09-03] MEDS: Sennosides 8.6 MG TABLET PO SCH ×2 (09:40→21:46)
[2018-09-03] MEDS: Gabapentin 400 MG CAPSULE PO SCH ×3 (09:40→21:47)
[2018-09-03] MEDS: Divalproex (12 HR) 250 MG TABLET PO SCH ×2 (09:41→21:48)
[2018-09-03] MEDS: Sulfamethoxazole/Trimeth DS 1 EACH TABLET PO SCH ×2 (09:41→21:47)
[2018-09-03] MEDS: Diltiazem CD (24hr) 120 MG CAPSULE PO SCH (09:41)
[2018-09-03] MEDS: Folic Acid 1 MG TABLET PO SCH (09:42)
--- NOTE | 2018-09-03 10:17 | Internal Med Progress Note ---
Hospitalist Progress Note - Encounter Date of Encounter: 09/03/18 Time of Encounter: 11:00 - Subjective Interval History: Patient with unwitnessed fall at F with reported witnessed facial droop and extremity weakness. Patient overnight noted to have slurred speech and left-sided weakness - Exam Vitals: Temp Pulse Resp BP Pulse Ox 98.2 F 86 16 128/61 95 09/03/18 07:41 09/03/18 07:41 09/03/18 08:27 09/03/18 08:27 09/03/18 08:27 Exam: General: NAD Skin: Pale Chest: Normal thoracic expansion. Normal breath sounds. Clear to auscultation. Heart: Irregularly irregular. No rubs or murmurs. Abdomen: Non-distended, soft and non-tender to palpation. No peritoneal reaction. Liver is normal in size. Spleen is not palpable. - Assessment and Plan (1) Transient cerebral ischemia Current Visit: Yes Status: Acute Assessment and Plan: Patient with unwitnessed fall at ECF with reported witnessed facial droop and extremity weakness. Patient overnight noted to have slurred speech and left-sided weakness MRI pending as well as carotid Dopplers and echocardiogram Continue aspirin and statin Neurology consulted and appreciate recommendations (2) UTI (urinary tract infection) Current Visit: Yes Status: Acute Assessment and Plan: Simple cystitis. No systemic signs of illness. Received 1gr ceftriaxone. Will start TMP/SMX 1 DS tab BID x 3 days. (3) Afib Current Visit: Yes Status: Chronic Assessment and Plan: Paroxysmal; Rate controlled Not on anticoagulation. (4) HTN (hypertension) Current Visit: Yes Status: Chronic Assessment and Plan: Controlled; continue Dyazide (5) COPD (chronic obstructive pulmonary disease) Current Visit: Yes Status: Chronic Assessment and Plan: No signs of acute of exacerbation at this time. Will continue LABA/ICS and albuterol prn. (6) Parkinsons disease Current Visit: Yes Status: Chronic Assessment and Plan: Continue dopamine agonists. (7) Thrombocytopenia Current Visit: Yes Status: Chronic Assessment and Plan: Seems to be a longstanding recurring issue. Mild and with no signs of bleeding. Continue to monitor. (8) Dehydration Current Visit: Yes Status: Acute Assessment and Plan: Will continue IV fluids and monitor (9) DVT prophylaxis Current Visit: Yes Status: Acute Assessment and Plan: SubQ heparin. - Time Spent with Patient Total time spent is greater than 50% in coordination of care (as documented) at patient's floor/unit and/or counseling patient: Internal Medicine: Result - Labs CBC & Chem 7: 09/03/18 06:24 09/03/18 06:24 Labs: Short CBC 09/03/18 Range/Units 06:24 WBC 4.8 (4.3-11.1) K/mcL Hgb 12.2 (11.5-15.4) g/dL Hct 38.2 (35.3-44.9) % Plt Count 117 L (140-400) K/mcL Neutrophils # 2.9 (1.6-8.9) K/mcL BMP 09/03/18 06:24 Sodium 135 L Potassium 3.5 Chloride 97 L Carbon Dioxide 31 H BUN 18 Creatinine 0.50 L Glucose 72 Calcium 8.7 - ABG Interpretation ABG results: PT/INR, D-dimer PT 13.7 Seconds (9.4-12.1) H 09/02/18 16:56 Consult Discharge Plan - Plan Referrals: Temo Madrigal MD [Primary Care Provider] - (1) Transient cerebral ischemia Qualifiers: Transient cerebral ischemia type: unspecified Qualified Code(s): G45.9 - Transient cerebral ischemic attack, unspecified (2) UTI (urinary tract infection) Qualifiers: Urinary tract infection type: acute cystitis Hematuria presence: without hematuria Qualified Code(s): N30.00 - Acute cystitis without hematuria (3) Afib Qualifiers: Atrial fibrillation type: paroxysmal Qualified Code(s): I48.0 - Paroxysmal atrial fibrillation (4) HTN (hypertension) Qualifiers: Hypertension type: essential hypertension Qualified Code(s): I10 - Essential (primary) hypertension (5) COPD (chronic obstructive pulmonary disease) Qualifiers: COPD type: chronic bronchitis Chronic bronchitis type: simple Qualified Code (s): J41.0 - Simple chronic bronchitis
--- NOTE | 2018-09-03 13:18 | Neurology - Consult Note ---
Date of Encounter: 09/03/18 Time of Encounter: 13:12 Assessment and Plan (1) TIA (transient ischemic attack) Current Visit: Yes Status: Acute Patient developed transient altered mental status, totally resolved, unwitnessed initially and differential diagnosis is wide. She does have multiple risk factors for cardiovascular comorbidities and the episode could be related to cardiac dysarrhythia, TIA and even a seizure. Will recommend full TIA work up including MRI of brain, carotid artery duplex and echocardiography. Will also obtain routine EEG in AM. Patient has atrial fibrillation and is currently not anticoagulated and she certainly appears to be candidate for watermelon inspector anticoagulation therapy but will defer decision to medical team/cardiology. Walking difficulty has been chronic and may be complicated by Parkinsonism and diabetic neuropathy. She has no knee and ankle reflexes, signs consistent with peripheral neuropathy. Please continue medical and supportive care Total time spend on the patient is approximately 50 minutes and 50% were spend on direct patient care History of Present Illness Chief complaint: slumped over HPI: Ms. Jackson is a 72 year old female with PMH significant for DM, myelodysphlastic syndrome, non-hodgekings lymphoma, anemia, HTN, hyperlipidemia who developed an episode of altered mental status, slumped over with transient facial droop and right sided weakness. Patient is in senior care and she states that she was sitting in the chair and all of a sudden she developed dizziness, lightheadedness and she slumped over. She states that she knew what was going on and about 20 minutes then she started feeling better. Apparently she was found slumped over in the chair and was found to have right facial droop and right sided weakness and though she may had stroke and brought her to the ER. CT of head was reported normal study. She is feeling better now and is at her baseline. She normally has difficulty walking and has to use a walker to walk. She denies pain. Past Med Surg Social Fam HX - Past Medical History Medical history: asthma, atrial fibrillation, COPD, dementia, GERD, hyperlipidemia, hypertension, migraine, seizures, SVT, other Additional medical history: LUPUS, parkinsons disease, RLS, Psychiatric history: anxiety, depression - Past Surgical History Surgical History: other Additional surgical history: back sx, cataract removed - colonoscopy, partial hysterectomy - Social History Smoking Status: Former smoker Packs per day: <1 Smokeless Tobacco Status: No Alcohol use: none Drug use: unknown - Family History Father Adopted: No Family Member Ethnicity: Non- Living Status: Cause of : [place] Hx Family Cardiac Disorders: Yes ([place]) Hx Family Respiratory Disorders: No Hx Family Cancer: No Hx Family GI Disorders: No Hx Family Endocrine Disorder: Yes Hx Family Neuromuscular Disorders: No Hx Family Neurologic Disorders: No Hx Family HEENT Disorders: No Hx Family Autoimmune Disorders: No Brother Hx Family Cardiac Disorders: Yes ([place]) Medications and Allergies Folic Acid 0.4 mg PO DAILY 10/16/15 [History] Gabapentin [Neurontin] 800 mg PO TID 10/16/15 [History] Ropinirole HCl [Requip] 2 mg PO HS 10/16/15 [History] Triamterene/HCTZ 37.5/25mg [Dyazide] 1 tab PO QAM 10/16/15 [History] Budesonide/Formoterol 160/4.5 [Symbicort 160/4.5] 1 puff IH BIDR 03/22/16 [ History] Ondansetron HCl 4 mg PO Q6H PRN 03/22/16 [History] Potassium Chloride [K-Tab ER] 20 meq PO DAILY 03/22/16 [History] Theophylline Anhydrous [Gary-24] 300 mg PO DAILY 03/22/16 [History] Tiotropium [Spiriva] 18 mcg IH DAILY 03/22/16 [History] Calcium Polycarbophil [Fiber Laxative] 625 mg PO HS 09/26/16 [History] Sennosides [Senna] 17.2 mg PO BID 09/26/16 [History] ALPRAZolam [Xanax 0.25 MG Tablet] 0.25 mg PO BID PRN 08/01/18 [History] ALPRAZolam [Xanax 1 MG Tablet] 1 mg PO HS PRN 08/01/18 [History] Atorvastatin Calcium [Lipitor] 20 mg PO HS 08/01/18 [History] Bisacodyl [Dulcolax] 10 mg RC DAILY PRN 08/01/18 [History] Carbidopa/Levodopa 10/100 [Sinemet 10/100] 1 tab PO QAM 08/01/18 [History] Cyclobenzaprine HCl 5 mg PO Q6H PRN 08/01/18 [History] Diltiazem HCl [Diltiazem ER] 120 mg PO DAILY 08/01/18 [History] Divalproex Sodium [Depakote] 250 mg PO BID 08/01/18 [History] Docusate [Colace] 100 mg PO BID PRN 08/01/18 [History] Ergocalciferol (VITAMIN D2) [Vitamin D2] 50,000 unit PO EUCEDA 08/01/18 [History] Famotidine [Pepcid] 20 mg PO HS 08/01/18 [History] Fluticasone Propionate Nasal [Flonase] 1 spr NS DAILY PRN 08/01/18 [History] Guaifenesin [Mucinex] 600 mg PO Q12H PRN 08/01/18 [History] Hydrocortisone 1% CREAM [Cortaid] 1 appl TP Q8H PRN 08/01/18 [History] LevETIRAcetam [Keppra] 500 mg PO BID 08/01/18 [History] Loratadine [Claritin] 10 mg PO DAILY 08/01/18 [History] Melatonin 5 mg PO HS 08/01/18 [History] Mirtazapine [Remeron] 30 mg PO HS 08/01/18 [History] Morphine Sulfate [Arymo ER] 15 mg PO BID 08/01/18 [History] Nitroglycerin [Nitrostat] 0.4 mg SL Q5M PRN MDD [id number] call 911 08/01/18 [ History] OxyCODONE Immed Rel [Roxicodone 10 MG] 10 mg PO Q8H PRN 08/01/18 [History] Oxybutynin Chloride [Ditropan Xl] 10 mg PO DAILY 08/01/18 [History] Phenazopyridine HCl [Urinary Pain Relief] 2 tab PO Q8H PRN 08/01/18 [History] Phenyleph/Pramoxin/Glycr/W.pet [Preparation H Cream] 26 gm RC Q6H PRN 08/01/18 [ History] Promethazine [Phenergan] 25 mg PO Q8HR PRN 08/01/18 [History] SUMAtriptan Succinate [Imitrex] 100 mg PO Q12H PRN 08/01/18 [History] levoFLOXacin [Levaquin] 750 mg PO DAILY #5 tablet 08/04/18 [Rx] 3 Allergy/AdvReac Type Severity Reaction Status Date / Time amlodipine Allergy See Verified 08/02/18 23:44 Comments Donepezil [From Aricept] Allergy See Verified 08/02/18 23:44 Comments Iodinated Contrast- Oral and Allergy See Verified 08/02/18 23:44 IV Dye Comments iodine Allergy See Verified 08/02/18 23:44 Comments IVP Dye Allergy Anaphylaxis Uncoded 08/02/18 23:44 All Systems: The remainder of the systems were reviewed and are negative Physical Examination - Vital Signs Vital Signs: Initial Vital Signs Temp Pulse Resp BP Pulse Ox 97.7 F 96 96 137/94 97 09/02/18 16:55 09/02/18 16:55 09/02/18 16:55 09/02/18 16:55 09/02/18 16:55 - Constitutional General appearance: comfortable - Neurologic Sensorimotor examination: intact Detailed motor examination: full strength in all major muscle groups Motor examination - right side: 5/5: deltoids, biceps, triceps, wrist flexion, wrist extension, demographic analyst, hip flexors, tibialis Anterior, quadriceps, toe extension (EHL), plantarflexion Motor examination - left side: 5/5: deltoids, biceps, triceps, wrist flexion, wrist extension, hip flexors, demographic analyst, quadriceps, tibialis Anterior, toe extension (EHL), plantarflexion Detailed sensory examination: intact Posture: other (None) Reflexes: Biceps: 1+, Triceps: 1+, Brachioradialis: 1+, Patella: 0, Achilles: 0 Mental Status Examination: awake, alert, oriented to person, oriented to place, oriented to time, follows commands appropriately, answers questions appropriately, no agnosia, no aphasia, no aproxia Cranial nerve examination: PERRL, EOMI, visual aguirre intact, corneal reflexes brisk symmetrically, sensory to face intact, mastication intact, no facial asymmetry is present, no dysarthria, hearing is intact symmetrically, soft palate elevates bilaterally upon phonation, gag reflex intact, flexes SCM and trapezius muscles symmetrically with full power, tongue protrudes midline, no atrophy or facial fasiculations present Fundoscopic: papilledema: Bilateral (Not tested) Ataxia: right upper extremity Tremor: left upper extremity (postural tremors noted bilaterally) Results - Laboratory Findings CBC and BMP: 09/03/18 06:24 09/03/18 06:24 Abnormal lab findings: Abnormal lab results Plt Count 117 K/mcL (140-400) L 09/03/18 06:24 PT 13.7 Seconds (9.4-12.1) H 09/02/18 16:56 Sodium 135 mEq/L (136-145) L 09/03/18 06:24 Chloride 97 mEq/L (98-107) L 09/03/18 06:24 Carbon Dioxide 31 mEq/L (23-29) H 09/03/18 06:24 Creatinine 0.50 mg/dL (0.60-1.20) L 09/03/18 06:24 BUN/Creatinine Ratio 36 (6-26) H 09/03/18 06:24 ALT 4 Units/L (7-52) L 09/02/18 16:56 Globulin 4.1 g/dL (2.4-3.5) H 09/02/18 16:56 Albumin/Globulin Ratio 0.9 (1.1-2.2) L 09/02/18 16:56 Urine Clarity Cloudy (Clear) A 09/02/18 17:30 Urine Ketones Trace mg/dL (Negative) H 09/02/18 17:30 Urine Nitrite Positive (Negative) A 09/02/18 17:30 Ur Leukocyte Esterase Trace (Negative) H 09/02/18 17:30 Urine Microscopic RBC 5-15 per hpf (0-3) H 09/02/18 17:30 Urine Microscopic WBC 5-15 per hpf (0-3) H 09/02/18 17:30 Ur Squamous Epith Cells Many per lpf (None-Few) H 09/02/18 17:30 Valproic Acid 47 mcg/mL (50-100) L 09/03/18 06:24 Consult Discharge Plan - Plan Referrals: Temo Madrigal MD [Primary Care Provider] -
[2018-09-03] MEDS: Acetaminophen 325 MG TABLET PO PRN (14:29)
[2018-09-03] MEDS: SUMAtriptan succinate 50 MG TABLET PO PRN (21:46)
[2018-09-03] MEDS: Mirtazapine 15 MG TABLET PO SCH (21:47)
[2018-09-03] MEDS: rOPINIRole 1 MG TABLET PO SCH (21:47)
[2018-09-03] MEDS: Melatonin 3 MG TABLET PO SCH (21:47)
[2018-09-03] MEDS: Famotidine 20 MG TABLET PO SCH (21:47)
[2018-09-03] MEDS: ALPRAZolam 1 MG TABLET PO PRN (22:04)
[2018-09-04] MEDS: *HR* Heparin 5,000 UNIT/ML VIAL SQ SCH ×3 (05:50→20:09)
[2018-09-04] MEDS: Acetaminophen 325 MG TABLET PO PRN ×2 (06:23→22:58)
[2018-09-04] MEDS: Tiotropium 18 MCG inhalation IH SCH (08:09)
[2018-09-04] MEDS: Budesonide/Formoterol 160/4.5 1 PUFF INH IH SCH ×2 (08:09→21:58)
[2018-09-04] MEDS: SUMAtriptan succinate 50 MG TABLET PO PRN (10:05)
[2018-09-04] MEDS: Folic Acid 1 MG TABLET PO SCH (10:06)
[2018-09-04] MEDS: Aspirin 81 MG TAB.CHEW PO SCH (10:06)
[2018-09-04] MEDS: Loratadine 10 MG TABLET PO SCH (10:06)
[2018-09-04] MEDS: Diltiazem CD (24hr) 120 MG CAPSULE PO SCH (10:06)
[2018-09-04] MEDS: levETIRAcetam 250 MG TABLET PO SCH ×2 (10:06→20:00)
[2018-09-04] MEDS: Gabapentin 400 MG CAPSULE PO SCH ×3 (10:07→20:00)
[2018-09-04] MEDS: Sulfamethoxazole/Trimeth DS 1 EACH TABLET PO SCH ×2 (10:07→20:00)
[2018-09-04] MEDS: Sennosides 8.6 MG TABLET PO SCH ×2 (10:07→20:00)
[2018-09-04] MEDS: Divalproex (12 HR) 250 MG TABLET PO SCH ×2 (10:07→20:00)
--- NOTE | 2018-09-04 11:17 | Electrocardiograph Report ---
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
--- NOTE | 2018-09-04 13:47 | EEG/EMG/Oth Biometrics Report ---
EEG Procedure Report Date of procedure: 09/04/18 EEG Procedure: Routine EEG Procedure Note: This EEG was acquired with standard international 102-0 system with EKG recording. The background EEG activity was characterized by the presence of posterior dominant alpha rhythm with the best frequency up to 8-9 Hz. The background activity was reactive to eye openings. Sleep stages were not identified during this tracing. Drowsiness was characterized by drop off of posterior dominant Alpha rhythm. There are no electrographic seizures identified during this tracing. There are no epileptiform discharges and focal slowing noted during this recording. Photic stimulation produced and produced no abnormalities. Hyperventilation procedure not performed EKG tracing showed no significant cardiac dysrhythmia. Impression: This is essentially a normal awake and drowsy EEG. Clinical Correlation: Normal EEGs, however, do not exclude epilepsy. Clinical correlation is advised.
[2018-09-04] MEDS ORDERED: Ibuprofen 800 MG TABLET PO ONE (14:32)
--- NOTE | 2018-09-04 16:08 | Neurology Progress Note ---
Date of Encounter: 09/04/18 Time of Encounter: 16:05 Assessment and Plan (1) TIA (transient ischemic attack) Current Visit: Yes Status: Acute Patient developed an episode of syncope not witnessed. MRI of brain showed no evidence of infarct. EEG showed normal study. currently has non focal neurological deficits. intermittent slurred speech and confusion nonspecific. Not convinced that was due to a seizure. would not change her current regimen. Will keep Keppra 500mg bid. Await echo and carotid artery results. Please continue medical and supportive care Subjective Principal diagnosis: syncope and weakness Interval history: Patient seen and examined. She is stable today and daughter mentions some intermittent confusion and memory difficulty. Daughter mentions that during a conversation the patient tends to digress and not making sense. Daughter also mentions that the patient at times were having left sided weakness and slurred speech which is not present at this time. EEG showed normal study. MRI of brain showed no evidence of stroke. Objective - Constitutional Vitals: Temp Pulse Resp BP Pulse Ox 97.9 F 79 16 126/73 98 09/04/18 15:35 09/04/18 15:35 09/04/18 15:35 09/04/18 15:35 09/04/18 15:35 - Neurological Exam Motor Examination: Present: full strength in all major muscle groups Motor examination - right side: 5/5: deltoids, biceps, triceps, wrist flexion, wrist extension, museum informatics specialist, hip flexors, tibialis Anterior, quadriceps, toe extension (EHL), plantarflexion Motor examination - left side: 5/5: deltoids, biceps, triceps, wrist flexion, wrist extension, hip flexors, museum informatics specialist, quadriceps, tibialis Anterior, toe extension (EHL), plantarflexion Sensation intact: Present: intact Posture: Present: other (None) Mental Status Examination: Present: awake, alert, oriented to person, oriented to place, oriented to time, follows commands appropriately, answers questions appropriately, no agnosia, no aphasia, no aproxia Cranial nerve examination: Present: PERRL, EOMI, visual aguirre intact, corneal reflexes brisk symmetrically, sensory to face intact, mastication intact, no facial asymmetry is present, no dysarthria, hearing is intact symmetrically, soft palate elevates bilaterally upon phonation, gag reflex intact, flexes SCM and trapezius muscles symmetrically with full power, tongue protrudes midline, no atrophy or facial fasiculations present Tremor: left upper extremity (postural tremors noted bilaterally) Results - Laboratory Findings CBC and BMP: 09/03/18 06:24 09/03/18 06:24 Abnormal lab findings: Abnormal lab results Plt Count 117 K/mcL (140-400) L 09/03/18 06:24 PT 13.7 Seconds (9.4-12.1) H 09/02/18 16:56 Sodium 135 mEq/L (136-145) L 09/03/18 06:24 Chloride 97 mEq/L (98-107) L 09/03/18 06:24 Carbon Dioxide 31 mEq/L (23-29) H 09/03/18 06:24 Creatinine 0.50 mg/dL (0.60-1.20) L 09/03/18 06:24 BUN/Creatinine Ratio 36 (6-26) H 09/03/18 06:24 ALT 4 Units/L (7-52) L 09/02/18 16:56 Globulin 4.1 g/dL (2.4-3.5) H 09/02/18 16:56 Albumin/Globulin Ratio 0.9 (1.1-2.2) L 09/02/18 16:56 Urine Clarity Cloudy (Clear) A 09/02/18 17:30 Urine Ketones Trace mg/dL (Negative) H 09/02/18 17:30 Urine Nitrite Positive (Negative) A 09/02/18 17:30 Ur Leukocyte Esterase Trace (Negative) H 09/02/18 17:30 Urine Microscopic RBC 5-15 per hpf (0-3) H 09/02/18 17:30 Urine Microscopic WBC 5-15 per hpf (0-3) H 09/02/18 17:30 Ur Squamous Epith Cells Many per lpf (None-Few) H 09/02/18 17:30 Valproic Acid 47 mcg/mL (50-100) L 09/03/18 06:24 Consult Discharge Plan - Plan Referrals: Temo Madrigal MD [Primary Care Provider] -
[2018-09-04] MEDS: Melatonin 3 MG TABLET PO SCH (20:00)
[2018-09-04] MEDS: rOPINIRole 1 MG TABLET PO SCH (20:00)
[2018-09-04] MEDS: Famotidine 20 MG TABLET PO SCH (20:00)
[2018-09-04] MEDS: Mirtazapine 15 MG TABLET PO SCH (20:00)
[2018-09-04] MEDS: ALPRAZolam 1 MG TABLET PO PRN (20:03)
--- NOTE | 2018-09-04 20:04 | Internal Med Progress Note ---
Hospitalist Progress Note - Encounter Date of Encounter: 09/04/18 Time of Encounter: 11:00 - Subjective Interval History: Patient with unwitnessed fall at [facility]CF with reported witnessed facial droop and extremity weakness. Patient overnight noted to have slurred speech and left-sided weakness Patient workup for TIA still pending Neurology consulted and does not really patient had CVA or seizures; before results for echocardiogram before patient to be sent back to ECF. - Exam Vitals: Temp Pulse Resp BP Pulse Ox 98.5 F 91 16 154/76 96 09/04/18 18:39 09/04/18 18:39 09/04/18 18:39 09/04/18 18:39 09/04/18 18:39 Exam: General: NAD Skin: Pale Chest: Normal thoracic expansion. Normal breath sounds. Clear to auscultation. Heart: Irregularly irregular. No rubs or murmurs. Abdomen: Non-distended, soft and non-tender to palpation. No peritoneal reaction. Liver is normal in size. Spleen is not palpable. - Assessment and Plan (1) Transient cerebral ischemia Current Visit: Yes Status: Acute Assessment and Plan: Patient with unwitnessed fall at ECF with reported witnessed facial droop and extremity weakness. Patient overnight noted to have slurred speech and left-sided weakness MRA negative for acute CVA Continue aspirin and statin Neurology does not suspect patient had a CVA or seizure as EEG was normal Awaiting results of echocardiogram (2) UTI (urinary tract infection) Current Visit: Yes Status: Acute Assessment and Plan: Simple cystitis. No systemic signs of illness. Received 1gr ceftriaxone. Will continue TMP/SMX 1 DS tab BID x 3 days. (3) Afib Current Visit: Yes Status: Chronic Assessment and Plan: Paroxysmal; Rate controlled Not on anticoagulation. (4) HTN (hypertension) Current Visit: Yes Status: Chronic Assessment and Plan: Controlled; continue Dyazide (5) COPD (chronic obstructive pulmonary disease) Current Visit: Yes Status: Chronic Assessment and Plan: No signs of acute of exacerbation at this time. Will continue LABA/ICS and albuterol prn. (6) Parkinsons disease Current Visit: Yes Status: Chronic Assessment and Plan: Continue dopamine agonists. (7) Thrombocytopenia Current Visit: Yes Status: Chronic Assessment and Plan: Seems to be a longstanding recurring issue. Mild and with no signs of bleeding. Continue to monitor. (8) Dehydration Current Visit: Yes Status: Acute Assessment and Plan: Will continue IV fluids and monitor (9) DVT prophylaxis Current Visit: Yes Status: Acute Assessment and Plan: SubQ heparin. - Time Spent with Patient Total time spent is greater than 50% in coordination of care (as documented) at patient's floor/unit and/or counseling patient: Internal Medicine: Result - Labs CBC & Chem 7: 09/03/18 06:24 09/03/18 06:24 - ABG Interpretation ABG results: PT/INR, D-dimer PT 13.7 Seconds (9.4-12.1) H 09/02/18 16:56 - Impressions Impressions Echocardiogram 09/03/18 05:57 Impressions: LVEF 60%. Asymmetric basal septal hypertrophy. No LVOT obstruction. Mild left ventricular diastolic dysfunction. Normal right ventricular structure and function. Mild pulmonic regurgitation. No pulmonary hypertension. Brain MRI 09/04/18 20:29 IMPRESSION: Mild cerebral atrophy. Mild chronic small vessel ischemic changes. No acute brain parenchymal abnormality. D/ / 09/04/2018 13:09:07 Rose Salazar MD / ebony Interpreting Provider: Rose Salazar MD Consult Discharge Plan - Plan Referrals: Temo Madrigal MD [Primary Care Provider] - (1) Transient cerebral ischemia Qualifiers: Transient cerebral ischemia type: unspecified Qualified Code(s): G45.9 - Transient cerebral ischemic attack, unspecified (2) UTI (urinary tract infection) Qualifiers: Urinary tract infection type: acute cystitis Hematuria presence: without hematuria Qualified Code(s): N30.00 - Acute cystitis without hematuria (3) Afib Qualifiers: Atrial fibrillation type: paroxysmal Qualified Code(s): I48.0 - Paroxysmal atrial fibrillation (4) HTN (hypertension) Qualifiers: Hypertension type: essential hypertension Qualified Code(s): I10 - Essential (primary) hypertension (5) COPD (chronic obstructive pulmonary disease) Qualifiers: COPD type: chronic bronchitis Chronic bronchitis type: simple Qualified Code (s): J41.0 - Simple chronic bronchitis
[2018-09-04] MEDS: 0.9 % Sodium Chloride 1,000 ML IVC SCH (22:32)
[2018-09-05] MEDS: *HR* Heparin 5,000 UNIT/ML VIAL SQ SCH ×2 (06:28→13:37)
[2018-09-05] MEDS ORDERED: Ibuprofen 600 MG TABLET PO ONE (06:32)
[2018-09-05] MEDS: Budesonide/Formoterol 160/4.5 1 PUFF INH IH SCH (08:02)
[2018-09-05] MEDS: Tiotropium 18 MCG inhalation IH SCH (08:03)
[2018-09-05] MEDS: levETIRAcetam 250 MG TABLET PO SCH (09:43)
[2018-09-05] MEDS: Folic Acid 1 MG TABLET PO SCH (09:43)
[2018-09-05] MEDS: Sulfamethoxazole/Trimeth DS 1 EACH TABLET PO SCH (09:43)
[2018-09-05] MEDS: Aspirin 81 MG TAB.CHEW PO SCH (09:43)
[2018-09-05] MEDS: Gabapentin 400 MG CAPSULE PO SCH ×2 (09:43→16:06)
[2018-09-05] MEDS: Sennosides 8.6 MG TABLET PO SCH (09:43)
[2018-09-05] MEDS: Loratadine 10 MG TABLET PO SCH (09:43)
[2018-09-05] MEDS: Divalproex (12 HR) 250 MG TABLET PO SCH (09:44)
[2018-09-05] MEDS: Diltiazem CD (24hr) 120 MG CAPSULE PO SCH (09:44)
[2018-09-05] MEDS: SUMAtriptan succinate 50 MG TABLET PO PRN (09:53)
[2018-09-05] MEDS ORDERED: Ketorolac 30 MG/ML VIAL IVP ONE (13:11)
--- NOTE | 2018-09-05 14:05 | Neurology Progress Note ---
Date of Encounter: 09/05/18 Time of Encounter: 14:03 Assessment and Plan (1) TIA (transient ischemic attack) Current Visit: Yes Status: Acute Patient developed an episode of syncope not witnessed. MRI of brain showed no evidence of infarct. EEG showed normal study. currently has non focal neurological deficits. intermittent slurred speech and confusion nonspecific but now back to baseline. Again not convinced that was due to a seizure. would not change her current regimen. Will keep Keppra 500mg bid. Echocardiography result reviewed this appears unremarkable. Carotid artery duplex is pending. Patient back to baseline and if carotid artery duplex returns unremarkable then patient can be discharged from neurology perspective. Will sign off and please call if any questions Subjective Principal diagnosis: syncope and weakness Interval history: Patient seen and examined. She is feeling better today and says that she is back to her norm. Left arm weakness is no longer present. Has some headaches which improved after receiving toradol. This is not new though and she has been having headaches chronically. echocardiography reviewed. Carotid artery duplex is still pending. Objective - Constitutional Vitals: Temp Pulse Resp BP Pulse Ox 97.9 F 77 15 128/67 92 09/05/18 12:11 09/05/18 12:11 09/05/18 12:11 09/05/18 12:11 09/05/18 12:11 - Neurological Exam Sensorimotor examination: Present: intact Motor Examination: Present: full strength in all major muscle groups Motor examination - right side: 5/5: deltoids, biceps, triceps, wrist flexion, wrist extension, organ builder, hip flexors, tibialis Anterior, quadriceps, toe extension (EHL), plantarflexion Motor examination - left side: 5/5: deltoids, biceps, triceps, wrist flexion, wrist extension, hip flexors, organ builder, quadriceps, tibialis Anterior, toe extension (EHL), plantarflexion Sensation intact: Present: intact Posture: Present: other (None) Mental Status Examination: Present: awake, alert, oriented to person, oriented to place, oriented to time, follows commands appropriately, answers questions appropriately, no agnosia, no aphasia, no aproxia Cranial nerve examination: Present: PERRL, EOMI, visual aguirre intact, corneal reflexes brisk symmetrically, sensory to face intact, mastication intact, no facial asymmetry is present, no dysarthria, hearing is intact symmetrically, soft palate elevates bilaterally upon phonation, gag reflex intact, flexes SCM and trapezius muscles symmetrically with full power, tongue protrudes midline, no atrophy or facial fasiculations present Tremor: left upper extremity (postural tremors noted bilaterally) Results - Laboratory Findings CBC and BMP: 09/03/18 06:24 09/03/18 06:24 Abnormal lab findings: Abnormal lab results Plt Count 117 K/mcL (140-400) L 09/03/18 06:24 PT 13.7 Seconds (9.4-12.1) H 09/02/18 16:56 Sodium 135 mEq/L (136-145) L 09/03/18 06:24 Chloride 97 mEq/L (98-107) L 09/03/18 06:24 Carbon Dioxide 31 mEq/L (23-29) H 09/03/18 06:24 Creatinine 0.50 mg/dL (0.60-1.20) L 09/03/18 06:24 BUN/Creatinine Ratio 36 (6-26) H 09/03/18 06:24 ALT 4 Units/L (7-52) L 09/02/18 16:56 Globulin 4.1 g/dL (2.4-3.5) H 09/02/18 16:56 Albumin/Globulin Ratio 0.9 (1.1-2.2) L 09/02/18 16:56 Urine Clarity Cloudy (Clear) A 09/02/18 17:30 Urine Ketones Trace mg/dL (Negative) H 09/02/18 17:30 Urine Nitrite Positive (Negative) A 09/02/18 17:30 Ur Leukocyte Esterase Trace (Negative) H 09/02/18 17:30 Urine Microscopic RBC 5-15 per hpf (0-3) H 09/02/18 17:30 Urine Microscopic WBC 5-15 per hpf (0-3) H 09/02/18 17:30 Ur Squamous Epith Cells Many per lpf (None-Few) H 09/02/18 17:30 Valproic Acid 47 mcg/mL (50-100) L 09/03/18 06:24 Consult Discharge Plan - Plan Referrals: Temo Madrigal MD [Primary Care Provider] - Prescriptions: Sulfamethoxazole/Trimeth DS [Bactrim DS] 1 each PO BID 2 Days #3 tablet
--- NOTE | 2018-09-05 14:13 | Discharge Summary ---
Date of Encounter: 09/05/18 Time of Encounter: 14:11 - Discharge Diagnosis (1) Transient cerebral ischemia Priority: Primary Status: Acute Assessment and Plan: Patient with unwitnessed fall with [facility] with reported witnessed facial droop and extremity weakness. Patient overnight noted to have slurred speech and left-sided weakness MRA negative for acute CVA EEG normal study Continue aspirin and statin Neurology does not suspect patient had a CVA or seizure as EEG was normal TTE reveals--LVEF 60% asymmetric basal septal hypertrophy, No LVOT obstruction mild LV DD, normal RV structure and function mild pulmonic regurgitation no PHTN, No PFO Carotid doppler pending completion continue keppra BID per neurology recommendations 09/05- Left sided weakness has resolved, now back to baseline status. No focal neurological findings on exam. Preliminary carotid measurements appear to be WNL and with non-stenotic plaque B/L. Qualifiers: Transient cerebral ischemia type: unspecified Qualified Code(s): G45.9 - Transient cerebral ischemic attack, unspecified (2) UTI (urinary tract infection) Priority: Primary Status: Acute Assessment and Plan: Simple cystitis. No systemic signs of illness. Received 1gr ceftriaxone. and 3 doses of TMP/SMX will continue TMP/SMX at d/c; to receive 1 dose tonight and then 2 doses tomorrow then stop Qualifiers: Urinary tract infection type: acute cystitis Hematuria presence: without hematuria Qualified Code(s): N30.00 - Acute cystitis without hematuria (3) COPD (chronic obstructive pulmonary disease) Priority: Secondary Status: Chronic Assessment and Plan: No signs of acute of exacerbation at this time. continue COPD meds at d/c Qualifiers: COPD type: chronic bronchitis Chronic bronchitis type: simple Qualified Code(s): J41.0 - Simple chronic bronchitis (4) Afib Priority: Secondary Status: Chronic Assessment and Plan: Paroxysmal; Rate controlled; HR in 80's last 12 hours Not on anticoagulation. Qualifiers: Atrial fibrillation type: paroxysmal Qualified Code(s): I48.0 - Paroxysmal atrial fibrillation (5) HTN (hypertension) Priority: Secondary Status: Chronic Assessment and Plan: per hx, Controlled; continue Dyazide Qualifiers: Hypertension type: essential hypertension Qualified Code(s): I10 - Essential (primary) hypertension (6) Parkinsons disease Priority: Secondary Status: Chronic (7) Thrombocytopenia Priority: Secondary Status: Chronic (8) Dehydration Priority: Secondary Status: Acute (9) DVT prophylaxis Priority: Secondary Status: Acute Hospital course: Ms. Jackson is a 72 year old female who presented with fall, concerns for syncope and CVA vs TIA with left facial droop and left arm heaviness. Has a h/o BLE generalized weakness which persist at time of d/c. Neurology following in consultation throughout stay. Head CT negative for acute intracranial abnormality, C-spine CT negative for abnormality, TTE was essentially a normal study, B/L carotid doppler studies with non-stenotic plaque and MRI was negative for acute intracranial abnormality. Does not appears to be CVA/TIA or seizure. UA positive for nitrates and leukocyte esterase. Treated with 1gm rocephin then TMP/SMX. Will d/c with TMP/SMX x3 more doses then stop. Back to baseline mental status. Uneventful hospital course. To d/c to [facility]. Discharge discussed with: patient, nurse - Time Spent with Patient Total time spent providing and/or coordinating discharge services: Less than 30 minutes - Discharge Medications Prescriptions: ALPRAZolam [Xanax 1 MG Tablet] 1 mg PO HS PRN 1 Days #1 tablet PRN Reason: Anxiety ALPRAZolam [Xanax 0.25 MG Tablet] 0.25 mg PO BID PRN 1 Days #2 tablet PRN Reason: Anxiety Morphine Sulfate [Arymo ER] 15 mg PO BID 1 Days #2 tab.po.er OxyCODONE Immed Rel [Roxicodone 10 MG] 10 mg PO Q8H PRN 1 Days #3 tablet PRN Reason: Pain Sulfamethoxazole/Trimeth DS [Bactrim DS] 1 each PO BID 2 Days #3 tablet Home Medications: Folic Acid 0.4 mg PO DAILY 10/16/15 [History] Gabapentin [Neurontin] 800 mg PO TID 10/16/15 [History] Ropinirole HCl [Requip] 2 mg PO HS 10/16/15 [History] Triamterene/HCTZ 37.5/25mg [Dyazide] 1 tab PO Q48H 10/16/15 [History] Budesonide/Formoterol 160/4.5 [Symbicort 160/4.5] 1 puff IH BIDR 03/22/16 [ History] Ondansetron HCl 4 mg PO Q6H PRN 05/02/16 [History] Potassium Chloride [K-Tab ER] 20 meq PO DAILY 03/22/16 [History] Theophylline Anhydrous [Gary-24] 300 mg PO DAILY 03/22/16 [History] Tiotropium [Spiriva] 18 mcg IH DAILY 03/22/16 [History] Calcium Polycarbophil [Fiber Laxative] 625 mg PO HS 09/26/16 [History] Sennosides [Senna] 17.2 mg PO BID 09/26/16 [History] Atorvastatin Calcium [Lipitor] 20 mg PO HS 08/01/18 [History] Bisacodyl [Dulcolax] 10 mg RC DAILY PRN 08/01/18 [History] Carbidopa/Levodopa [Sinemet ] 1 tab PO QAM 08/01/18 [History] Cyclobenzaprine HCl 5 mg PO Q6H PRN 08/01/18 [History] Diltiazem HCl [Diltiazem ER] 120 mg PO DAILY 08/01/18 [History] Divalproex Sodium [Depakote] 250 mg PO BID 08/01/18 [History] Docusate [Colace] 100 mg PO BID PRN 08/01/18 [History] Ergocalciferol (VITAMIN D2) [Vitamin D2] 50,000 unit PO EUCEDA 08/01/18 [History] Famotidine [Pepcid] 20 mg PO HS 08/01/18 [History] Guaifenesin [Mucinex] 600 mg PO Q12H PRN 08/01/18 [History] Hydrocortisone 1% CREAM [Cortaid] 1 appl TP Q8H PRN 08/01/18 [History] LevETIRAcetam [Keppra] 500 mg PO BID 08/01/18 [History] Loratadine [Claritin] 10 mg PO DAILY 08/01/18 [History] Melatonin 5 mg PO HS 08/01/18 [History] Mirtazapine [Remeron] 30 mg PO HS 08/01/18 [History] Oxybutynin Chloride [Ditropan Xl] 10 mg PO DAILY 08/01/18 [History] Promethazine [Phenergan] 25 mg PO Q8HR PRN 08/01/18 [History] SUMAtriptan Succinate [Imitrex] 100 mg PO Q12H PRN 08/01/18 [History] Cetirizine HCl [Zyrtec] 10 mg PO DAILY 09/04/18 [History] Cranberry Fruit Concentrate [Cranberry] 450 mg PO DAILY 09/04/18 [History] Mirabegron [Myrbetriq] 50 mg PO DAILY 09/04/18 [History] Omeprazole [PriLOSEC] 20 mg PO DAILY 09/04/18 [History] ALPRAZolam [Xanax 0.25 MG Tablet] 0.25 mg PO BID PRN 1 Days #2 tablet 09/05/18 [ Rx] ALPRAZolam [Xanax 1 MG Tablet] 1 mg PO HS PRN 1 Days #1 tablet 09/05/18 [Rx] Morphine Sulfate [Arymo ER] 15 mg PO BID 1 Days #2 tab.po.er 09/05/18 [Rx] OxyCODONE Immed Rel [Roxicodone 10 MG] 10 mg PO Q8H PRN 1 Days #3 tablet [Rx] Sulfamethoxazole/Trimeth DS [Bactrim DS] 1 each PO BID 2 Days #3 tablet [Rx] Allergies/Adverse Reactions: 3 Allergy/AdvReac Type Severity Reaction Status Date / Time amlodipine Allergy See Verified 08/02/18 23:44 Comments Donepezil [From Aricept] Allergy See Verified 08/02/18 23:44 Comments Iodinated Contrast- Oral and Allergy See Verified 08/02/18 23:44 IV Dye Comments iodine Allergy See Verified 08/02/18 23:44 Comments IVP Dye Allergy Anaphylaxis Uncoded 08/02/18 23:44 Date of admission: 09/02/18 19:58 Primary care physician: Temo Madrigal MD Consults: 09/03/18 05:58 Consult to Neurology [CONS] Routine Consulting Provider: Neurology [facility] Reason for Consult: Patient with symptoms of recurring TIA episodes Call Completed: No 09/04/18 08:05 Consult to Medical Sales Consultant [CONS] Routine Reason for SW Consult: PATIENT IS FROM [facility] 09/04/18 09:44 Consult to Interpret Exam [CONS] Routine Consulting Provider: Mary Woody Consult to Interpret Exam: Interpret EEG Discharging clinician: Mario Wheeler Anticipated date of discharge: 09/05/18 - Constitutional Vitals: Temp Pulse Resp BP Pulse Ox 97.9 F 77 15 128/67 92 09/05/18 12:11 09/05/18 12:11 09/05/18 12:11 09/05/18 12:11 09/05/18 12:11 General appearance: Present: cooperative, A&O X 3 Exam: . - Head Head exam: Present: atraumatic, normocephalic - Respiratory Respiratory exam: Present: CTAB. Absent: accessory muscle use, rales, rhonchi, wheezes - Cardiovascular Cardiovascular exam: Present: RRR, +S1, +S2. Absent: diastolic murmur, gallop, rubs, systolic murmur - Extremities Exam Extremities exam: Present: warm, radial pulses palpable and symmetrical. Absent : calf tenderness, cyanotic, pedal edema - Neurological Exam Neurological exam: Present: alert, oriented X3, strengths equal and symetr throughout. Absent: pronater drift, facial droop, speech deficit - Expanded Neurological Exam Neurological exam expanded: Absent: expressive aphasia, receptive aphasia Patient oriented to: Present: person, place, time Speech: Present: fluid speech. Absent: slurred Cranial Nerves: EOM's intact PM: Normal, gag reflex PM: Normal, nystagmus PM: Normal, tongue deviation PM: Normal Cerebellar function: finger to nose: Normal, heel to davidson: Normal, Romberg: Normal Upper motor neuron: Babinski sign: Normal, Paulo neglect: Normal, pronator drift : Normal, sensory extinction: Normal Sensory exam: LE 2 point discrimination: Normal, lower extremity light touch: Normal, lower extremity pin prick: Normal, lower extremity temperature: Normal, UE 2 point discrimination: Normal, upper extremity light touch: Normal, upper extremity pin prick: Normal, upper extremity temperature: Normal Neuro motor strength exam: LUE: 5, RUE: 5, LLE: 5 Coma Scale Eye Opening: Spontaneous Coma Scale Motor Response: Obeys Commands Coma Scale Verbal Response: Oriented Coma Scale Total: 15 - Patient Status Disposition: Transfer SNF Condition: Fair Functional capacity at discharge: wheelchair bound Overall status at discharge: patient is progressing back to baseline - Discharge Instructions Follow Up With: Temo Madrigal MD [Primary Care Provider] - - Diet and Activity Activity: increase activity as tolerated, resume usual activities as tolerated Diet: diabetic diet, low fat, low cholesterol, low salt diet
--- NOTE | 2018-09-05 14:40 | Physician Discharge Referral ---
ExtendedCare Referral Info Transfer To: [facility] Provider in Charge: facility provider Provider in Charge after Transfer: PCP Institutional Level of Care: Skilled - Diagnosis (1) Transient cerebral ischemia Priority: Primary Status: Acute (2) UTI (urinary tract infection) Priority: Secondary Status: Acute (3) COPD (chronic obstructive pulmonary disease) Priority: Secondary Status: Chronic (4) Afib Priority: Secondary Status: Chronic (5) HTN (hypertension) Priority: Secondary Status: Chronic (6) Parkinsons disease Priority: Secondary Status: Chronic (7) Thrombocytopenia Priority: Secondary Status: Chronic (8) Dehydration Priority: Secondary Status: Acute (9) DVT prophylaxis Priority: Secondary Status: Acute Prognosis: Fair Aware of Diagnosis: Patient Aware of Prognosis: Patient - Transfer Medications Prescriptions: ALPRAZolam [Xanax 1 MG Tablet] 1 mg PO HS PRN 1 Days #1 tablet PRN Reason: Anxiety ALPRAZolam [Xanax 0.25 MG Tablet] 0.25 mg PO BID PRN 1 Days #2 tablet PRN Reason: Anxiety Morphine Sulfate [Arymo ER] 15 mg PO BID 1 Days #2 tab.po.er OxyCODONE Immed Rel [Roxicodone 10 MG] 10 mg PO Q8H PRN 1 Days #3 tablet PRN Reason: Pain Sulfamethoxazole/Trimeth DS [Bactrim DS] 1 each PO BID 2 Days #3 tablet Home Medications: Folic Acid 0.4 mg PO DAILY 10/16/15 [History] Gabapentin [Neurontin] 800 mg PO TID 10/16/15 [History] Ropinirole HCl [Requip] 2 mg PO HS 10/16/15 [History] Triamterene/HCTZ 37.5/25mg [Dyazide] 1 tab PO Q48H 10/16/15 [History] Budesonide/Formoterol 160/4.5 [Symbicort 160/4.5] 1 puff IH BIDR 03/22/16 [ History] Ondansetron HCl 4 mg PO Q6H PRN 03/22/16 [History] Potassium Chloride [K-Tab ER] 20 meq PO DAILY 03/22/16 [History] Theophylline Anhydrous [Gary-24] 300 mg PO DAILY 03/22/16 [History] Tiotropium [Spiriva] 18 mcg IH DAILY 03/22/16 [History] Calcium Polycarbophil [Fiber Laxative] 625 mg PO HS 09/26/16 [History] Sennosides [Senna] 17.2 mg PO BID 09/26/16 [History] Atorvastatin Calcium [Lipitor] 20 mg PO HS 08/01/18 [History] Bisacodyl [Dulcolax] 10 mg RC DAILY PRN 08/01/18 [History] Carbidopa/Levodopa [Sinemet ] 1 tab PO QAM 08/01/18 [History] Cyclobenzaprine HCl 5 mg PO Q6H PRN 08/01/18 [History] Diltiazem HCl [Diltiazem ER] 120 mg PO DAILY 08/01/18 [History] Divalproex Sodium [Depakote] 250 mg PO BID 08/01/18 [History] Docusate [Colace] 100 mg PO BID PRN 08/01/18 [History] Ergocalciferol (VITAMIN D2) [Vitamin D2] 50,000 unit PO EUCEDA 08/01/18 [History] Famotidine [Pepcid] 20 mg PO HS 08/01/18 [History] Guaifenesin [Mucinex] 600 mg PO Q12H PRN 08/01/18 [History] Hydrocortisone 1% CREAM [Cortaid] 1 appl TP Q8H PRN 08/01/18 [History] LevETIRAcetam [Keppra] 500 mg PO BID 08/01/18 [History] Loratadine [Claritin] 10 mg PO DAILY 08/01/18 [History] Melatonin 5 mg PO HS 08/01/18 [History] Mirtazapine [Remeron] 30 mg PO HS 08/01/18 [History] Oxybutynin Chloride [Ditropan Xl] 10 mg PO DAILY 08/01/18 [History] Promethazine [Phenergan] 25 mg PO Q8HR PRN 08/01/18 [History] SUMAtriptan Succinate [Imitrex] 100 mg PO Q12H PRN 08/01/18 [History] Cetirizine HCl [Zyrtec] 10 mg PO DAILY 09/04/18 [History] Cranberry Fruit Concentrate [Cranberry] 450 mg PO DAILY 09/04/18 [History] Mirabegron [Myrbetriq] 50 mg PO DAILY 09/04/18 [History] Omeprazole [PriLOSEC] 20 mg PO DAILY 09/04/18 [History] ALPRAZolam [Xanax 0.25 MG Tablet] 0.25 mg PO BID PRN 1 Days #2 tablet 09/05/18 [ Rx] ALPRAZolam [Xanax 1 MG Tablet] 1 mg PO HS PRN 1 Days #1 tablet 09/05/18 [Rx] Morphine Sulfate [Arymo ER] 15 mg PO BID 1 Days #2 tab.po.er 09/05/18 [Rx] OxyCODONE Immed Rel [Roxicodone 10 MG] 10 mg PO Q8H PRN 1 Days #3 tablet [Rx] Sulfamethoxazole/Trimeth DS [Bactrim DS] 1 each PO BID 2 Days #3 tablet [Rx] Allergies/Adverse Reactions: 3 Allergy/AdvReac Type Severity Reaction Status Date / Time amlodipine Allergy See Verified 08/02/18 23:44 Comments Donepezil [From Aricept] Allergy See Verified 08/02/18 23:44 Comments Iodinated Contrast- Oral and Allergy See Verified 08/02/18 23:44 IV Dye Comments iodine Allergy See Verified 08/02/18 23:44 Comments IVP Dye Allergy Anaphylaxis Uncoded 08/02/18 23:44 - Respiratory Orders Smoking Cessation: Smoking cessation has been advised. For more information, call the [place] Tobacco Quit Line at 9-738-BKQX-NOW. - Advance Directives Code Status: Full Code - Mobility Orders Other (per facility provider directives) - Rehabiliation Orders Rehab Potential: Fair Rehab Orders: ROM Exercises, Evaluation for Physical Therapy, Evaluation for Occupational Therapy - Diet Orders No Added Salt (JOSE FRANCISCO), Cardiac CERTIFICATION: I certify that the transfer of the above named patient to an Extended Care Facility is necessary for the continuing treatment of the diagnosis listed. The above information is true and accurate reflection of patient's current condition. Confidential - Redisclosure prohibited without a patient's written consent.
[2018-09-05 15:44] VITALS: BP 108/67
== END 2018-09-05 18:46 ==
LOC: 3BNU 16:51 → EMEROOARM 16:51 → SUATTDRO 19:58 → 3BNU 20:58
PROVIDERS: ADMIT Internal Medicine; ATTEND Hospitalist

== ENCOUNTER 2020-02-15 10:43 | Inpatient (IN) ==
[2020-02-15] MEDS ORDERED: 0.9 % Sodium Chloride 500 ML IVC ONE (11:02)
[2020-02-15 11:23] LABS: Basophils % 0.2 %; Hematocrit 37.9 % (35.3-44.9); Immature Granulocytes % 1.1 % (0-4); Lymphocytes # 0.8 K/mcL (0.6-4.6); Lymphocytes % 4.2 %; Mean Corpuscular HGB Conc 31.7 g/dL (31.6-35.5); Mean Corpuscular Volume 94.8 fL (83.0-100.0); Mean Platelet Volume 10.3 fL (9.4-12.4); Monocytes # 0.5 K/mcL (0.0-1.3); Monocytes % 2.8 %; Neutrophils # 16.6 K/mcL (1.6-8.9); Platelet Count 157 K/mcL (140-400); Red Cell Distribution Width 13.1 % (11.5-14.5); Segmented Neutrophils % 91.7 %; White Blood Count 18.1 K/mcL (4.3-11.1)
[2020-02-15 11:42] LABS: Platelet Estimate Normal (Normal); Toxic Granulation Present (Not Present); Toxic Vacuolation Present (Not Present)
[2020-02-15 11:45] LABS: Troponin I 0.05 ng/mL (< 0.04)
[2020-02-15] MEDS ORDERED: Piperacillin/Tazobactam 3.375 GM in 0.9 % Sodium Chloride Mini Bag 100 ML IVPB ONE (11:51)
[2020-02-15 11:56] LABS: Alanine Aminotransferase 12 Units/L (7-52); Albumin 3.1 g/dL (3.5-5.7); Albumin/Globulin Ratio 0.8 (1.1-2.2); Alkaline Phosphatase 46 Units/L (34-104); Aspartate Amino Transferase 44 Units/L (13-39); BUN/Creatinine Ratio 48 (6-26); Bilirubin,Direct 0.3 mg/dL (0.0-0.2); Bilirubin,Indirect 0.4 mg/dL (0.0-1.0); Bilirubin,Total 0.7 mg/dL (0.3-1.0); Blood Urea Nitrogen 37 mg/dL (8-23); Calcium 8.6 mg/dL (8.6-10.3); Carbon Dioxide 28 mEq/L (23-29); Chloride 102 mEq/L (98-107); Globulin 3.8 g/dL (2.4-3.5); Glucose 128 mg/dL (70-105); Osmolality,Calculated 294 (280-300); Potassium 3.2 mEq/L (3.5-5.1); Sodium 137 mEq/L (136-145); Total Protein 6.9 g/dL (6.4-8.9); eGFR For African Americans > 60 (> 60); eGFR For Non-African Americans > 60 (> 60)
[2020-02-15 12:11] LABS: Valproate 36 mcg/mL (50-100)
[2020-02-15 12:53] LABS: Bilirubin,Urine Small (Negative); Blood,Urine Small (Negative); Clarity,Urine Cloudy (Clear); Color,Urine Dark Yellow (Yellow); Glucose,Urine (UA) Normal (Normal); Ketones,Urine Trace mg/dL (Negative); Leukocyte Esterase,Urine Small (Negative); Nitrite,Urine Positive (Negative); PH,Urine 5.5 pH Units (5.0-8.0); Protein,Urine 30 mg/dL (Neg-Trace); Specific Gravity,Urine 1.027 (1.010-1.025); Urobilinogen,Urine Normal (Normal)
[2020-02-15 12:55] LABS: Bacteria,Urine Many per hpf (None-Few); Squamous Epithelial Cell,Urine Many per lpf (None-Few)
[2020-02-15] MEDS ORDERED: Naloxone 0.4 MG/ML INJ IVP PRN (13:43)
[2020-02-15] MEDS ORDERED: Ondansetron 4 MG/2 ML VIAL IVP PRN (13:43)
[2020-02-15 14:28] LABS: Adenovirus Not Detected (Not Detect); Bordetella Pertussis Not Detected (Not Detect); Chlamydophila pneumoniae Not Detected (Not Detect); Coronavirus 229E Not Detected (Not Detect); Coronavirus HKU1 Not Detected (Not Detect); Coronavirus NL63 Not Detected (Not Detect); Coronavirus OC43 Not Detected (Not Detect); Human Metapneumovirus Not Detected (Not Detect); Human Rhinovirus/Enterovirus Not Detected (Not Detect); Influenza A Subtype 2009 H1 Not Detected (Not Detect); Influenza B Not Detected (Not Detect); Mycoplasma pneumoniae Not Detected (Not Detect); Parainfluenza Virus 1 Not Detected (Not Detect); Parainfluenza Virus 2 Not Detected (Not Detect); Parainfluenza Virus 3 Not Detected (Not Detect); Parainfluenza Virus 4 Not Detected (Not Detect); Respiratory Syncytial Virus Not Detected (Not Detect)
[2020-02-15] MEDS ORDERED: Ipratropium/Albuterol Neb 3 ML ONE (14:43)
[2020-02-15] MEDS: Ipratropium/Albuterol Neb 3 ML IH ONE ×2 (14:45→14:50)
[2020-02-15] MEDS: 0.9 % Sodium Chloride 1,000 ML IVC SCH (14:50)
[2020-02-15] MEDS ORDERED: Tetrahydrozoline 15 ML BOTTLE BOTH EYES PRN (15:51)
[2020-02-15] MEDS ORDERED: Nitroglycerin 0.4 MG TAB.SUBL SL PRN (15:51)
[2020-02-15] MEDS ORDERED: Ipratropium/Albuterol Neb 3 ML IH SCH (16:00)
[2020-02-15] MEDS: MethylPREDNISolone 40 MG/ML VIAL IVP SCH ×2 (18:26→22:39)
[2020-02-15] MEDS: *HR* Enoxaparin 80 MG/0.8 ML SYRINGE SQ SCH (18:26)
[2020-02-15] MEDS: Melatonin 3 MG TABLET PO SCH (22:36)
[2020-02-15] MEDS: Gabapentin 400 MG CAPSULE PO SCH (22:37)
[2020-02-15] MEDS: Acetaminophen 325 MG TABLET PO PRN (22:37)
[2020-02-15] MEDS: rOPINIRole 1 MG TABLET PO SCH (22:37)
[2020-02-15] MEDS: Sennosides/Docusate Sodium TABLET PO SCH (22:37)
[2020-02-15] MEDS: levETIRAcetam 250 MG TABLET PO SCH (22:38)
[2020-02-15] MEDS: Piperacillin/Tazobactam 3.375 GM in 0.9 % Sodium Chloride Mini Bag 100 ML IVPB SCH (22:38)
[2020-02-15] MEDS: Famotidine 20 MG TABLET PO SCH (22:38)
[2020-02-15] MEDS: Divalproex (12 HR) 250 MG TABLET PO SCH (22:38)
[2020-02-15] MEDS: Budesonide/Formoterol 160/4.5 1 PUFF INH IH SCH (22:40)
[2020-02-16] MEDS: 0.9 % Sodium Chloride 1,000 ML IVC SCH (01:17)
[2020-02-16] MEDS: Piperacillin/Tazobactam 3.375 GM in 0.9 % Sodium Chloride Mini Bag 100 ML IVPB SCH ×3 (02:57→19:41)
[2020-02-16] MEDS: *HR* Enoxaparin 80 MG/0.8 ML SYRINGE SQ SCH (03:10)
[2020-02-16 04:10] LABS: Basophils % 0.2 %; Eosinophils % 0.1 %; Hematocrit 33.6 % (35.3-44.9); Hemoglobin 10.7 g/dL (11.5-15.4); Immature Granulocytes % 4.8 % (0-4); Lymphocytes # 0.6 K/mcL (0.6-4.6); Mean Corpuscular HGB Conc 31.8 g/dL (31.6-35.5); Mean Corpuscular Hemoglobin 30.3 pg (28.0-33.3); Mean Corpuscular Volume 95.2 fL (83.0-100.0); Mean Platelet Volume 10.8 fL (9.4-12.4); Monocytes # 0.6 K/mcL (0.0-1.3); Monocytes % 3.2 %; Platelet Count 154 K/mcL (140-400); Red Blood Count 3.53 M/mcL (3.82-4.97); Red Cell Distribution Width 13.2 % (11.5-14.5); Segmented Neutrophils % 88.7 %; White Blood Count 19.1 K/mcL (4.3-11.1)
[2020-02-16 04:13] LABS: Neutrophils # 16.9 K/mcL (1.6-8.9)
[2020-02-16 04:29] LABS: BUN/Creatinine Ratio 53 (6-26); Blood Urea Nitrogen 31 mg/dL (8-23); Calcium 8.5 mg/dL (8.6-10.3); Carbon Dioxide 30 mEq/L (23-29); Chloride 105 mEq/L (98-107); Glucose 149 mg/dL (70-105); Osmolality,Calculated 297 (280-300); Potassium 3.4 mEq/L (3.5-5.1); Sodium 139 mEq/L (136-145); eGFR For African Americans > 60 (> 60); eGFR For Non-African Americans > 60 (> 60)
[2020-02-16 04:54] LABS: Platelet Estimate Normal (Normal)
[2020-02-16] MEDS: Sennosides/Docusate Sodium TABLET PO SCH ×2 (09:58→21:25)
[2020-02-16] MEDS: levETIRAcetam 250 MG TABLET PO SCH ×2 (09:58→19:40)
[2020-02-16] MEDS: Divalproex (12 HR) 250 MG TABLET PO SCH ×2 (10:02→19:40)
[2020-02-16] MEDS: Gabapentin 400 MG CAPSULE PO SCH ×3 (10:02→19:40)
[2020-02-16] MEDS: DilTIAZem CD (24hr) 120 MG CAP.ER.24H PO SCH (10:02)
[2020-02-16] MEDS: MethylPREDNISolone 40 MG/ML VIAL IVP SCH ×3 (10:03→23:17)
[2020-02-16] MEDS: calcium polycarbophiL 625 MG TABLET PO SCH (10:03)
[2020-02-16] MEDS ORDERED: Isovue-370 500 ML BOTTLE IVP ONE (10:34)
[2020-02-16] MEDS: Ipratropium 1 PUFF INHALER IH SCH ×3 (12:05→22:56)
[2020-02-16] MEDS: Budesonide/Formoterol 160/4.5 1 PUFF INH IH SCH ×2 (12:07→22:56)
[2020-02-16] MEDS: rOPINIRole 1 MG TABLET PO SCH (19:40)
[2020-02-16] MEDS: Famotidine 20 MG TABLET PO SCH (19:40)
[2020-02-16] MEDS: Melatonin 3 MG TABLET PO SCH (19:40)
[2020-02-16] MEDS: Acetaminophen 325 MG TABLET PO PRN (23:23)
[2020-02-17 02:06] LABS: Hematocrit 30.9 % (35.3-44.9); Immature Granulocytes % 2.8 % (0-4); Lymphocytes % 3.6 %; Mean Corpuscular HGB Conc 32.4 g/dL (31.6-35.5); Mean Corpuscular Hemoglobin 30.8 pg (28.0-33.3); Mean Corpuscular Volume 95.1 fL (83.0-100.0); Mean Platelet Volume 10.4 fL (9.4-12.4); Monocytes % 4.7 %; Platelet Count 183 K/mcL (140-400); Red Blood Count 3.25 M/mcL (3.82-4.97); Red Cell Distribution Width 13.2 % (11.5-14.5); Segmented Neutrophils % 88.7 %; White Blood Count 24.6 K/mcL (4.3-11.1)
[2020-02-17 02:07] LABS: Basophils % 0.2 %; Lymphocytes # 0.9 K/mcL (0.6-4.6); Monocytes # 1.2 K/mcL (0.0-1.3); Neutrophils # 21.8 K/mcL (1.6-8.9)
[2020-02-17 02:08] LABS: Basophils # 0.1 K/mcL (0.0-0.2)
[2020-02-17 02:20] LABS: Platelet Estimate Normal (Normal)
[2020-02-17 02:26] LABS: BUN/Creatinine Ratio 53 (6-26); Blood Urea Nitrogen 24 mg/dL (8-23); Calcium 8.6 mg/dL (8.6-10.3); Carbon Dioxide 27 mEq/L (23-29); Chloride 108 mEq/L (98-107); Glucose 146 mg/dL (70-105); Osmolality,Calculated 295 (280-300); Potassium 3.5 mEq/L (3.5-5.1); Sodium 139 mEq/L (136-145); eGFR For African Americans > 60 (> 60); eGFR For Non-African Americans > 60 (> 60)
[2020-02-17] MEDS: Piperacillin/Tazobactam 3.375 GM in 0.9 % Sodium Chloride Mini Bag 100 ML IVPB SCH ×3 (02:59→19:40)
[2020-02-17] MEDS: Ipratropium 1 PUFF INHALER IH SCH ×4 (03:43→22:01)
[2020-02-17] MEDS: *HR* Enoxaparin 40 MG/0.4 ML SYRINGE SQ SCH (05:47)
[2020-02-17] MEDS: calcium polycarbophiL 625 MG TABLET PO SCH (08:27)
[2020-02-17] MEDS: Divalproex (12 HR) 250 MG TABLET PO SCH ×2 (08:27→19:40)
[2020-02-17] MEDS: Gabapentin 400 MG CAPSULE PO SCH ×3 (08:27→19:40)
[2020-02-17] MEDS: levETIRAcetam 250 MG TABLET PO SCH ×2 (08:27→19:40)
[2020-02-17] MEDS: Sennosides/Docusate Sodium TABLET PO SCH ×2 (08:27→19:39)
[2020-02-17] MEDS: DilTIAZem CD (24hr) 120 MG CAP.ER.24H PO SCH (08:27)
[2020-02-17] MEDS: MethylPREDNISolone 40 MG/ML VIAL IVP SCH ×3 (08:37→18:36)
[2020-02-17] MEDS: Budesonide/Formoterol 160/4.5 1 PUFF INH IH SCH ×2 (10:51→22:02)
[2020-02-17] MEDS: Acetaminophen 325 MG TABLET PO PRN (14:50)
[2020-02-17] MEDS: Melatonin 3 MG TABLET PO SCH (19:39)
[2020-02-17] MEDS: Famotidine 20 MG TABLET PO SCH (19:40)
[2020-02-17] MEDS: rOPINIRole 1 MG TABLET PO SCH (19:40)
[2020-02-18] MEDS: Acetaminophen 325 MG TABLET PO PRN ×2 (00:30→08:56)
[2020-02-18 01:47] LABS: Hematocrit 30.4 % (35.3-44.9); Hemoglobin 9.8 g/dL (11.5-15.4); Mean Corpuscular HGB Conc 32.2 g/dL (31.6-35.5); Mean Corpuscular Hemoglobin 29.9 pg (28.0-33.3); Mean Corpuscular Volume 92.7 fL (83.0-100.0); Mean Platelet Volume 10.3 fL (9.4-12.4); Nucleated Red Blood Cells 0.1 /100 WBC (0); Platelet Count 181 K/mcL (140-400); Red Blood Count 3.28 M/mcL (3.82-4.97); Red Cell Distribution Width 13.2 % (11.5-14.5); White Blood Count 23.7 K/mcL (4.3-11.1)
[2020-02-18 02:01] LABS: Platelet Estimate Normal (Normal)
[2020-02-18 02:02] LABS: Neutrophils # 22.8 K/mcL (1.6-8.9)
[2020-02-18 02:07] LABS: BUN/Creatinine Ratio 48 (6-26); Blood Urea Nitrogen 20 mg/dL (8-23); Calcium 8.4 mg/dL (8.6-10.3); Carbon Dioxide 30 mEq/L (23-29); Chloride 105 mEq/L (98-107); Glucose 132 mg/dL (70-105); Osmolality,Calculated 292 (280-300); Potassium 3.3 mEq/L (3.5-5.1); Sodium 139 mEq/L (136-145); eGFR For African Americans > 60 (> 60); eGFR For Non-African Americans > 60 (> 60)
[2020-02-18] MEDS: Piperacillin/Tazobactam 3.375 GM in 0.9 % Sodium Chloride Mini Bag 100 ML IVPB SCH (03:04)
[2020-02-18] MEDS ORDERED: *HR* OxyCODONE Immed Rel 5 MG TABLET PO ONE (03:13)
[2020-02-18] MEDS: Ipratropium 1 PUFF INHALER IH SCH (04:05)
[2020-02-18] MEDS: *HR* Enoxaparin 40 MG/0.4 ML SYRINGE SQ SCH (06:03)
[2020-02-18] MEDS: MethylPREDNISolone 40 MG/ML VIAL IVP SCH (06:03)
[2020-02-18 07:10] VITALS: BP 136/47
[2020-02-18] MEDS: DilTIAZem CD (24hr) 120 MG CAP.ER.24H PO SCH (07:42)
[2020-02-18] MEDS: Sennosides/Docusate Sodium TABLET PO SCH (07:42)
[2020-02-18] MEDS: levETIRAcetam 250 MG TABLET PO SCH (07:43)
[2020-02-18] MEDS: Divalproex (12 HR) 250 MG TABLET PO SCH (07:43)
[2020-02-18] MEDS: Gabapentin 400 MG CAPSULE PO SCH (07:43)
[2020-02-18] MEDS: calcium polycarbophiL 625 MG TABLET PO SCH (07:43)
[2020-02-18] MEDS ORDERED: Aminoglycoside Consult 1 EACH MC ONE (09:49)
== END 2020-02-18 09:50 ==
LOC: EMEROOARM 10:43 → 2NENU 10:43 → 2NNU 21:58 → 2ANU 02-16 22:17 → SUATTDRO 02-17 11:29
PROVIDERS: ADMIT Family Medicine; ATTEND Family Medicine

== ENCOUNTER 2020-07-28 01:28 | Inpatient (IN) ==
[2020-07-28 02:13] LABS: Basophils % 0.1 %; Eosinophils # 0.2 K/mcL (0.0-0.6); Eosinophils % 2.1 %; Hematocrit 38.2 % (35.3-44.9); Hemoglobin 11.6 g/dL (11.5-15.4); Immature Granulocytes % 0.3 % (0-4); Lymphocytes % 17.5 %; Mean Corpuscular HGB Conc 30.4 g/dL (31.6-35.5); Mean Corpuscular Hemoglobin 27.5 pg (28.0-33.3); Mean Corpuscular Volume 90.5 fL (83.0-100.0); Mean Platelet Volume 9.2 fL (9.4-12.4); Monocytes # 1.3 K/mcL (0.0-1.3); Monocytes % 11.9 %; Neutrophils # 7.6 K/mcL (1.6-8.9); Platelet Count 220 K/mcL (140-400); Red Blood Count 4.22 M/mcL (3.82-4.97); Red Cell Distribution Width 13.3 % (11.5-14.5); Segmented Neutrophils % 68.1 %; White Blood Count 11.1 K/mcL (4.3-11.1)
[2020-07-28 02:17] LABS: INR 1.1
[2020-07-28 02:20] LABS: Activated Partial Thrombo Time 39.4 Seconds (26.0-36.0)
[2020-07-28 02:36] LABS: Alanine Aminotransferase 3 Units/L (7-52); Albumin 3.3 g/dL (3.5-5.7); Albumin/Globulin Ratio 0.8 (1.1-2.2); Alkaline Phosphatase 60 Units/L (34-104); Aspartate Amino Transferase 7 Units/L (13-39); BUN/Creatinine Ratio 39 (6-26); Bilirubin,Direct 0.1 mg/dL (0.0-0.2); Bilirubin,Indirect 0.2 mg/dL (0.0-1.0); Bilirubin,Total 0.3 mg/dL (0.3-1.0); Blood Urea Nitrogen 21 mg/dL (8-23); Carbon Dioxide 35 mEq/L (23-29); Chloride 99 mEq/L (98-107); Globulin 3.9 g/dL (2.4-3.5); Glucose 125 mg/dL (70-105); Lipase 34 Units/L (11-82); Magnesium 2.1 mg/dL (1.6-2.6); Osmolality,Calculated 292 (280-300); Phosphorous 5.4 mg/dL (2.7-4.5); Potassium 4.2 mEq/L (3.5-5.1); Sodium 139 mEq/L (136-145); Total Protein 7.2 g/dL (6.4-8.9); Troponin I < 0.03 ng/mL (< 0.04); eGFR For African Americans > 60 (> 60); eGFR For Non-African Americans > 60 (> 60)
[2020-07-28] MEDS ORDERED: Vancomycin 1,500 MG/265 ML IV.SOLN IVPB ONE (05:17)
[2020-07-28] MEDS ORDERED: Piperacillin/Tazobactam 3.375 GM in 0.9 % Sodium Chloride Mini Bag 100 ML IVPB ONE (05:18)
[2020-07-28] MEDS ORDERED: Naloxone 0.4 MG/ML INJ IVP PRN (07:59)
[2020-07-28] MEDS ORDERED: methylPREDNISolone 125 MG/2 ML VIAL IVP SCH (11:00)
[2020-07-28] MEDS: Budesonide/Formoterol 160/4.5 1 PUFF INH IH SCH ×2 (11:29→19:57)
[2020-07-28] MEDS: Tiotropium 18 MCG inhalation IH SCH (11:30)
[2020-07-28] MEDS: Azithromycin 500 MG in 0.9 % Sodium Chloride 250 ML IVPB SCH (12:02)
[2020-07-28 13:32] LABS: Adenovirus Not Detected (Not Detect); Bordetella Pertussis Not Detected (Not Detect); Chlamydophila pneumoniae Not Detected (Not Detect); Coronavirus 229E Not Detected (Not Detect); Coronavirus HKU1 Not Detected (Not Detect); Coronavirus NL63 Not Detected (Not Detect); Coronavirus OC43 Not Detected (Not Detect); Human Metapneumovirus Not Detected (Not Detect); Human Rhinovirus/Enterovirus Not Detected (Not Detect); Influenza A Subtype 2009 H1 Not Detected (Not Detect); Influenza B Not Detected (Not Detect); Mycoplasma pneumoniae Not Detected (Not Detect); Parainfluenza Virus 1 Not Detected (Not Detect); Parainfluenza Virus 2 Not Detected (Not Detect); Parainfluenza Virus 3 Not Detected (Not Detect); Parainfluenza Virus 4 Not Detected (Not Detect); Respiratory Syncytial Virus Not Detected (Not Detect)
[2020-07-28 13:50] LABS: SARS-CoV-2 DETECTED (Not Detect)
[2020-07-28] MEDS: Piperacillin/Tazobactam 3.375 GM in 0.9 % Sodium Chloride Mini Bag 100 ML IVPB SCH ×2 (14:57→20:20)
[2020-07-28] MEDS: Acetaminophen 325 MG TABLET PO PRN ×2 (14:58→21:00)
[2020-07-28] MEDS: Dexamethasone 4 MG/ML VIAL IVP SCH (17:04)
[2020-07-28 17:57] LABS: Bilirubin,Urine Negative (Negative); Blood,Urine Negative (Negative); Clarity,Urine Turbid (Clear); Color,Urine Light-Yellow (Yellow); Glucose,Urine (UA) Normal (Normal); Ketones,Urine Negative (Negative); Leukocyte Esterase,Urine Large (Negative); Mucus,Urine Few per lpf (None-Few); Nitrite,Urine Positive (Negative); Protein,Urine Trace mg/dL (Neg-Trace); Specific Gravity,Urine 1.021 (1.010-1.025); Squamous Epithelial Cell,Urine Moderate per hpf (None-Few); Transitional Epi Cells,Urine Few per hpf (None-Few); Urobilinogen,Urine Normal (Normal); WBC,Urine 30-50 per hpf (0-3)
[2020-07-28] MEDS ORDERED: Vancomycin 1,250 MG/262.5 ML IV.SOLN IVPB SCH (18:00)
[2020-07-29] MEDS: levETIRAcetam 250 MG TABLET PO SCH ×3 (02:53→21:28)
[2020-07-29] MEDS: Divalproex (12 HR) 250 MG TABLET PO SCH ×3 (02:53→21:29)
[2020-07-29] MEDS: Piperacillin/Tazobactam 3.375 GM in 0.9 % Sodium Chloride Mini Bag 100 ML IVPB SCH ×3 (04:49→21:29)
[2020-07-29] MEDS: *HR* Enoxaparin 40 MG/0.4 ML SYRINGE SQ SCH (04:50)
[2020-07-29 06:55] LABS: Basophils % 0.1 %; Hematocrit 36.5 % (35.3-44.9); Hemoglobin 11.7 g/dL (11.5-15.4); Immature Granulocytes % 0.6 % (0-4); Lymphocytes # 0.8 K/mcL (0.6-4.6); Lymphocytes % 8.9 %; Mean Corpuscular HGB Conc 32.1 g/dL (31.6-35.5); Mean Corpuscular Volume 87.3 fL (83.0-100.0); Mean Platelet Volume 9.6 fL (9.4-12.4); Monocytes # 0.5 K/mcL (0.0-1.3); Monocytes % 5.7 %; Platelet Count 252 K/mcL (140-400); Red Blood Count 4.18 M/mcL (3.82-4.97); Red Cell Distribution Width 12.9 % (11.5-14.5); Segmented Neutrophils % 84.7 %; White Blood Count 9.4 K/mcL (4.3-11.1)
[2020-07-29 07:15] LABS: BUN/Creatinine Ratio 52 (6-26); Blood Urea Nitrogen 23 mg/dL (8-23); Calcium 9.2 mg/dL (8.6-10.3); Carbon Dioxide 26 mEq/L (23-29); Chloride 102 mEq/L (98-107); Glucose 134 mg/dL (70-105); Osmolality,Calculated 292 (280-300); Potassium 3.4 mEq/L (3.5-5.1); Sodium 138 mEq/L (136-145); eGFR For African Americans > 60 (> 60); eGFR For Non-African Americans > 60 (> 60)
[2020-07-29] MEDS: Budesonide/Formoterol 160/4.5 1 PUFF INH IH SCH ×2 (07:21→19:27)
[2020-07-29] MEDS: Tiotropium 18 MCG inhalation IH SCH (07:26)
[2020-07-29] MEDS: Dexamethasone 4 MG/ML VIAL IVP SCH (08:05)
[2020-07-29] MEDS ORDERED: Budesonide/Formoterol 160/4.5 1 PUFF INH IH SCH (10:00)
[2020-07-29] MEDS: Azithromycin 500 MG in 0.9 % Sodium Chloride 250 ML IVPB SCH (10:16)
[2020-07-29] MEDS ORDERED: Tetrahydrozoline 15 ML BOTTLE BOTH EYES PRN (13:39)
[2020-07-29] MEDS ORDERED: Nitroglycerin 0.4 MG TAB.SUBL SL PRN (13:39)
[2020-07-29] MEDS ORDERED: *HR* OxyCODONE Immed Rel 5 MG TABLET PO PRN (13:39)
[2020-07-29] MEDS ORDERED: Bisacodyl 10 MG RECTAL SUPPOSITORY RC PRN (13:39)
[2020-07-29] MEDS: Gabapentin 400 MG CAPSULE PO SCH ×2 (14:57→21:29)
[2020-07-29] MEDS ORDERED: Melatonin 3 MG TABLET PO SCH (21:00)
[2020-07-29] MEDS ORDERED: risperiDONE 0.25 MG TABLET PO SCH (21:00)
[2020-07-29] MEDS ORDERED: ALPRAZolam 0.5 MG TABLET PO SCH (21:00)
[2020-07-29] MEDS ORDERED: ALPRAZolam 1 MG TABLET PO SCH (21:00)
[2020-07-29] MEDS ORDERED: rOPINIRole 1 MG TABLET PO SCH (21:00)
[2020-07-29] MEDS: Sennosides/Docusate Sodium TABLET PO SCH (21:28)
[2020-07-30] MEDS: *HR* Enoxaparin 40 MG/0.4 ML SYRINGE SQ SCH (05:02)
[2020-07-30] MEDS: Piperacillin/Tazobactam 3.375 GM in 0.9 % Sodium Chloride Mini Bag 100 ML IVPB SCH (05:02)
[2020-07-30 06:03] LABS: Fibrinogen 494 mg/dL (169-393)
[2020-07-30 06:04] LABS: Basophils % 0.2 %; Hematocrit 34.4 % (35.3-44.9); Hemoglobin 10.9 g/dL (11.5-15.4); Immature Granulocytes % 0.2 % (0-4); Lymphocytes # 2.2 K/mcL (0.6-4.6); Mean Corpuscular HGB Conc 31.7 g/dL (31.6-35.5); Mean Corpuscular Hemoglobin 27.9 pg (28.0-33.3); Mean Corpuscular Volume 88.2 fL (83.0-100.0); Mean Platelet Volume 9.2 fL (9.4-12.4); Monocytes # 0.8 K/mcL (0.0-1.3); Monocytes % 8.8 %; Neutrophils # 5.7 K/mcL (1.6-8.9); Platelet Count 236 K/mcL (140-400); Red Cell Distribution Width 13.3 % (11.5-14.5); Segmented Neutrophils % 65.8 %; White Blood Count 8.7 K/mcL (4.3-11.1)
[2020-07-30 06:05] LABS: D-Dimer 1243 ng/mLFEU (0-500)
[2020-07-30 06:21] LABS: BUN/Creatinine Ratio 43 (6-26); Blood Urea Nitrogen 24 mg/dL (8-23); Carbon Dioxide 27 mEq/L (23-29); Chloride 105 mEq/L (98-107); Glucose 91 mg/dL (70-105); Lactate Dehydrogenase 91 Units/L (140-271); Osmolality,Calculated 292 (280-300); Potassium 3.8 mEq/L (3.5-5.1); Sodium 139 mEq/L (136-145); eGFR For African Americans > 60 (> 60); eGFR For Non-African Americans > 60 (> 60)
[2020-07-30 06:33] LABS: Ferritin 31 ng/mL (10-120)
[2020-07-30] MEDS: Tiotropium 18 MCG inhalation IH SCH (07:37)
[2020-07-30] MEDS: Budesonide/Formoterol 160/4.5 1 PUFF INH IH SCH (07:38)
[2020-07-30] MEDS ORDERED: DilTIAZem CD (24hr) 120 MG CAP.ER.24H PO SCH (09:00)
[2020-07-30] MEDS: Dexamethasone 4 MG/ML VIAL IVP SCH (10:21)
[2020-07-30] MEDS: Gabapentin 400 MG CAPSULE PO SCH ×2 (10:22→16:06)
[2020-07-30] MEDS: levETIRAcetam 250 MG TABLET PO SCH (10:22)
[2020-07-30] MEDS: Divalproex (12 HR) 250 MG TABLET PO SCH (10:22)
[2020-07-30] MEDS: ALPRAZolam 0.25 MG TABLET PO SCH ×2 (10:22→13:17)
[2020-07-30] MEDS: Sennosides/Docusate Sodium TABLET PO SCH (10:23)
[2020-07-30 13:27] VITALS: BP 149/73
[2020-07-30] MEDS: Acetaminophen 325 MG TABLET PO PRN (16:06)
== END 2020-07-30 17:00 | DRG 137 ==
LOC: 2NENU 01:28 → EMEROOARM 01:28 → SUATTDRO 06:34 → 2NENU 06:54
PROVIDERS: ADMIT Family Medicine; ATTEND Internal Medicine

== ENCOUNTER 2020-11-22 21:58 | Observation (INO) ==
[2020-11-22] MEDS ORDERED: Ipratropium/Albuterol Neb 3 ML IH ONE (22:17)
[2020-11-22 22:42] LABS: VBG HCO3 34 mEq/L (21-27); VBG PCO2 64 mmHg (41-51); VBG PH 7.33 pH Units (7.32-7.42); VBG PO2 112 mmHg (25-50)
[2020-11-22 22:44] LABS: Hemoglobin 12.6 g/dL (11.5-15.4); Immature Granulocytes % 0.2 % (0-4)
[2020-11-22 22:46] LABS: Basophils % 0.5 %; Eosinophils # 0.3 K/mcL (0.0-0.6); Eosinophils % 4.8 %; Hematocrit 41.2 % (35.3-44.9); Immature Platelets 3.5 % (1.1-6.1); Lymphocytes # 2.2 K/mcL (0.6-4.6); Lymphocytes % 34.7 %; Mean Corpuscular HGB Conc 30.6 g/dL (31.6-35.5); Mean Corpuscular Hemoglobin 27.3 pg (28.0-33.3); Mean Corpuscular Volume 89.2 fL (83.0-100.0); Mean Platelet Volume 9.7 fL (9.4-12.4); Monocytes # 0.5 K/mcL (0.0-1.3); Monocytes % 8.1 %; Neutrophils # 3.3 K/mcL (1.6-8.9); Platelet Count 124 K/mcL (140-400); Red Blood Count 4.62 M/mcL (3.82-4.97); Red Cell Distribution Width 14.6 % (11.5-14.5); Segmented Neutrophils % 51.7 %; White Blood Count 6.4 K/mcL (4.3-11.1)
[2020-11-22 22:50] LABS: INR 1.2; Prothrombin Time 13.4 Seconds (9.4-12.1)
[2020-11-22 23:00] LABS: Bilirubin,Urine Negative (Negative); Blood,Urine Negative (Negative); Clarity,Urine Cloudy (Clear); Color,Urine Yellow (Yellow); Glucose,Urine (UA) Normal (Normal); Ketones,Urine Negative (Negative); PH,Urine 7.5 pH Units (5.0-8.0); Protein,Urine Trace mg/dL (Neg-Trace); Specific Gravity,Urine 1.029 (1.010-1.025)
[2020-11-22 23:01] LABS: Leukocyte Esterase,Urine Large (Negative); Nitrite,Urine Positive (Negative); Urobilinogen,Urine Normal (Normal)
[2020-11-22 23:02] LABS: Alanine Aminotransferase 5 Units/L (7-52); Albumin 3.5 g/dL (3.5-5.7); Albumin/Globulin Ratio 1.1 (1.1-2.2); Alkaline Phosphatase 57 Units/L (34-104); Aspartate Amino Transferase 9 Units/L (13-39); BUN/Creatinine Ratio 55 (6-26); Bilirubin,Indirect 0.3 mg/dL (0.0-1.0); Bilirubin,Total 0.3 mg/dL (0.3-1.0); Blood Urea Nitrogen 30 mg/dL (8-23); Calcium 9.2 mg/dL (8.6-10.3); Carbon Dioxide 31 mEq/L (23-29); Chloride 102 mEq/L (98-107); Globulin 3.2 g/dL (2.4-3.5); Glucose 120 mg/dL (70-105); Magnesium 1.8 mg/dL (1.6-2.6); Osmolality,Calculated 297 (280-300); Potassium 3.8 mEq/L (3.5-5.1); Sodium 140 mEq/L (136-145); Total Protein 6.7 g/dL (6.4-8.9); Troponin I < 0.03 ng/mL (< 0.04); eGFR For African Americans > 60 (> 60); eGFR For Non-African Americans > 60 (> 60)
[2020-11-22 23:03] LABS: Calcium Oxalate Crystals,Urine Present; WBC,Urine Present per hpf (0-3)
[2020-11-22 23:05] LABS: Amorphous Sediment,Urine Present per hpf (None-Few); Bacteria,Urine Present per hpf (None-Few)
[2020-11-22] MEDS ORDERED: cefTRIAXone 1,000 MG in Water for inj. (sterile) 10 ML IVP ONE (23:09)
[2020-11-22] MEDS ORDERED: Azithromycin 500 MG in D5% in Water 250 ML IVPB ONE (23:36)
[2020-11-22 23:48] LABS: Adenovirus Not Detected (Not Detect); Bordetella Pertussis Not Detected (Not Detect); Chlamydophila pneumoniae Not Detected (Not Detect); Coronavirus 229E Not Detected (Not Detect); Coronavirus HKU1 Not Detected (Not Detect); Coronavirus NL63 Not Detected (Not Detect); Coronavirus OC43 Not Detected (Not Detect); Human Metapneumovirus Not Detected (Not Detect); Human Rhinovirus/Enterovirus Not Detected (Not Detect); Influenza A Subtype 2009 H1 Not Detected (Not Detect); Influenza B Not Detected (Not Detect); Mycoplasma pneumoniae Not Detected (Not Detect); Parainfluenza Virus 1 Not Detected (Not Detect); Parainfluenza Virus 2 Not Detected (Not Detect); Parainfluenza Virus 3 Not Detected (Not Detect); Parainfluenza Virus 4 Not Detected (Not Detect); Respiratory Syncytial Virus Not Detected (Not Detect); SARS-CoV-2 Not Detected (Not Detect)
[2020-11-23] MEDS ORDERED: Azithromycin 500 MG VIAL ONE (00:18)
[2020-11-23] MEDS ORDERED: Ondansetron ODT 4 MG TAB.RAPDIS SL PRN (00:54)
[2020-11-23] MEDS ORDERED: Naloxone 0.4 MG/ML INJ IVP PRN (00:54)
[2020-11-23 02:11] LABS: Basophils % 0.4 %; Eosinophils % 1.5 %; Immature Granulocytes % 0.2 % (0-4); Monocytes % 1.9 %
[2020-11-23 02:13] LABS: Eosinophils # 0.1 K/mcL (0.0-0.6); Hematocrit 41.7 % (35.3-44.9); Hemoglobin 12.8 g/dL (11.5-15.4); Immature Platelets 3.5 % (1.1-6.1); Lymphocytes % 20.5 %; Mean Corpuscular HGB Conc 30.7 g/dL (31.6-35.5); Mean Corpuscular Hemoglobin 27.4 pg (28.0-33.3); Mean Corpuscular Volume 89.3 fL (83.0-100.0); Mean Platelet Volume 9.6 fL (9.4-12.4); Monocytes # 0.1 K/mcL (0.0-1.3); Neutrophils # 3.6 K/mcL (1.6-8.9); Platelet Count 111 K/mcL (140-400); Red Blood Count 4.67 M/mcL (3.82-4.97); Red Cell Distribution Width 14.5 % (11.5-14.5); Segmented Neutrophils % 75.5 %; White Blood Count 4.7 K/mcL (4.3-11.1)
[2020-11-23 02:31] LABS: BUN/Creatinine Ratio 49 (6-26); Blood Urea Nitrogen 29 mg/dL (8-23); Calcium 9.1 mg/dL (8.6-10.3); Carbon Dioxide 33 mEq/L (23-29); Chloride 101 mEq/L (98-107); Glucose 158 mg/dL (70-105); Magnesium 1.8 mg/dL (1.6-2.6); Osmolality,Calculated 297 (280-300); Phosphorous 4.7 mg/dL (2.7-4.5); Potassium 4.1 mEq/L (3.5-5.1); Sodium 139 mEq/L (136-145); eGFR For African Americans > 60 (> 60); eGFR For Non-African Americans > 60 (> 60)
[2020-11-23] MEDS ORDERED: Ipratropium/Albuterol Neb 3 ML IH PRN (02:51)
[2020-11-23 03:48] LABS: ABG Base Excess 6 mEq/L (-2 to 3); ABG HCO3 35 mEq/L (21-27); ABG Oxygen Saturation 94 % (95-98); ABG PCO2 71 mmHg (35-45); ABG PO2 82 mmHg (85-104); ABG TCO2 37 mEq/L (20-26)
[2020-11-23] MEDS: cefTRIAXone 1,000 MG in Water for inj. (sterile) 10 ML IVP SCH (07:44)
[2020-11-23] MEDS: *HR* Heparin 5,000 UNIT/ML VIAL SQ SCH ×3 (07:45→21:12)
[2020-11-23] MEDS: MethylPREDNISolone 40 MG/ML VIAL IVP SCH ×2 (09:55→21:13)
[2020-11-23] MEDS: Acetaminophen 325 MG TABLET PO PRN (10:13)
[2020-11-23] MEDS ORDERED: Azithromycin 500 MG in 0.9 % Sodium Chloride 250 ML IVPB SCH (18:00)
[2020-11-23] MEDS ORDERED: ALPRAZolam 0.5 MG TABLET PO SCH (21:00)
[2020-11-23] MEDS ORDERED: rOPINIRole 1 MG TABLET PO SCH (21:00)
[2020-11-23] MEDS ORDERED: ALPRAZolam 1 MG TABLET PO SCH ×2 (21:00→21:15)
[2020-11-23] MEDS: Gabapentin 400 MG CAPSULE PO SCH (21:11)
[2020-11-23] MEDS: Divalproex (12 HR) 250 MG TABLET PO SCH (21:11)
[2020-11-23] MEDS: risperiDONE 0.25 MG TABLET PO SCH (21:12)
[2020-11-23] MEDS: levETIRAcetam 250 MG TABLET PO SCH (21:12)
[2020-11-24 02:30] VITALS: BP 129/74
[2020-11-24] MEDS: *HR* Heparin 5,000 UNIT/ML VIAL SQ SCH (06:29)
[2020-11-24] MEDS ORDERED: Bisacodyl 10 MG RECTAL SUPPOSITORY RC PRN (07:44)
[2020-11-24] MEDS: cefTRIAXone 1,000 MG in Water for inj. (sterile) 10 ML IVP SCH (07:50)
[2020-11-24] MEDS: MethylPREDNISolone 40 MG/ML VIAL IVP SCH (07:51)
[2020-11-24] MEDS: Divalproex (12 HR) 250 MG TABLET PO SCH (07:51)
[2020-11-24] MEDS: levETIRAcetam 250 MG TABLET PO SCH (07:51)
[2020-11-24] MEDS: Acetaminophen 325 MG TABLET PO PRN (07:51)
[2020-11-24] MEDS: Gabapentin 400 MG CAPSULE PO SCH (07:51)
[2020-11-24] MEDS: risperiDONE 0.25 MG TABLET PO SCH (07:52)
[2020-11-24] MEDS ORDERED: DilTIAZem CD (24hr) 120 MG CAP.ER.24H PO SCH (09:00)
[2020-11-24] MEDS ORDERED: Lactulose Oral Soln 20 GM/30 ML UDC PO SCH (09:00)
[2020-11-24] MEDS ORDERED: ALPRAZolam 0.25 MG TABLET PO SCH (09:00)
[2020-11-24] MEDS ORDERED: Sennosides/Docusate Sodium TABLET PO SCH (09:00)
[2020-11-24] MEDS ORDERED: Psyllium 1 PACKET POWD.PACK PO SCH (09:00)
[2020-11-24] MEDS ORDERED: Famotidine 20 MG TABLET PO SCH (21:00)
[2020-11-24] MEDS ORDERED: ALPRAZolam 0.5 MG TABLET PO SCH (21:00)
[2020-11-30] MEDS ORDERED: Ergocalciferol (VIT D2) 50,000 UNIT (1.25MG) CAP PO SCH (09:00)
== END 2020-11-24 11:19 ==
LOC: 3ANU 21:58 → EMEROOARM 21:58 → 3ANU 11-23 00:52
PROVIDERS: ADMIT Student in an Organized Health Care Education/Training Program; ATTEND Student in an Organized Health Care Education/Training Program

== ENCOUNTER 2021-01-13 05:35 | Observation (INO) ==
[2021-01-13] MEDS ORDERED: Isovue-370 500 ML BOTTLE IVP ONE ×2 (06:01→06:17)
[2021-01-13 06:14] LABS: Basophils % 0.3 %; Eosinophils # 0.3 K/mcL (0.0-0.6); Eosinophils % 2.8 %; Hematocrit 46.3 % (35.3-44.9); Hemoglobin 13.9 g/dL (11.5-15.4); Immature Granulocytes % 0.3 % (0-4); Lymphocytes # 1.8 K/mcL (0.6-4.6); Lymphocytes % 19.2 %; Mean Corpuscular Hemoglobin 27.9 pg (28.0-33.3); Mean Corpuscular Volume 92.8 fL (83.0-100.0); Mean Platelet Volume 9.6 fL (9.4-12.4); Monocytes # 0.8 K/mcL (0.0-1.3); Monocytes % 8.5 %; Neutrophils # 6.6 K/mcL (1.6-8.9); Platelet Count 134 K/mcL (140-400); Red Blood Count 4.99 M/mcL (3.82-4.97); Segmented Neutrophils % 68.9 %; White Blood Count 9.5 K/mcL (4.3-11.1)
[2021-01-13 06:33] LABS: BUN/Creatinine Ratio 36 (6-26); Blood Urea Nitrogen 17 mg/dL (8-23); Calcium 9.6 mg/dL (8.6-10.3); Carbon Dioxide 34 mEq/L (23-29); Chloride 102 mEq/L (98-107); Glucose 114 mg/dL (70-105); Osmolality,Calculated 294 (280-300); Potassium 4.3 mEq/L (3.5-5.1); Sodium 141 mEq/L (136-145); eGFR For African Americans > 60 (> 60); eGFR For Non-African Americans > 60 (> 60)
[2021-01-13 06:34] LABS: Troponin I < 0.03 ng/mL (< 0.04)
[2021-01-13] MEDS ORDERED: 0.9 % Sodium Chloride 1,000 ML IVC ONE (06:52)
[2021-01-13 08:17] LABS: Adenovirus Not Detected (Not Detect); Bordetella Pertussis Not Detected (Not Detect); Chlamydophila pneumoniae Not Detected (Not Detect); Coronavirus 229E Not Detected (Not Detect); Coronavirus HKU1 Not Detected (Not Detect); Coronavirus NL63 Not Detected (Not Detect); Coronavirus OC43 Not Detected (Not Detect); Human Metapneumovirus Not Detected (Not Detect); Human Rhinovirus/Enterovirus Not Detected (Not Detect); Influenza A Subtype 2009 H1 Not Detected (Not Detect); Influenza B Not Detected (Not Detect); Mycoplasma pneumoniae Not Detected (Not Detect); Parainfluenza Virus 1 Not Detected (Not Detect); Parainfluenza Virus 2 Not Detected (Not Detect); Parainfluenza Virus 3 Not Detected (Not Detect); Parainfluenza Virus 4 Not Detected (Not Detect); Respiratory Syncytial Virus Not Detected (Not Detect); SARS-CoV-2 Not Detected (Not Detect)
[2021-01-13] MEDS ORDERED: Azithromycin 500 MG in 0.9 % Sodium Chloride 250 ML IVPB ONE (08:19)
[2021-01-13] MEDS ORDERED: cefTRIAXone 1,000 MG in Water for inj. (sterile) 10 ML IVP ONE (08:19)
[2021-01-13] MEDS ORDERED: Naloxone 0.4 MG/ML INJ IVP PRN (09:12)
[2021-01-13] MEDS ORDERED: Acetaminophen 325 MG TABLET PO PRN (09:12)
[2021-01-13] MEDS ORDERED: Ondansetron 4 MG/2 ML VIAL IVP PRN (09:12)
[2021-01-13] MEDS ORDERED: Ipratropium/Albuterol Neb 3 ML IH PRN (09:43)
[2021-01-13] MEDS: Ipratropium/Albuterol Neb 3 ML IH SCH ×3 (10:37→22:55)
[2021-01-13] MEDS ORDERED: Tetrahydrozoline 15 ML BOTTLE BOTH EYES PRN (15:41)
[2021-01-13] MEDS ORDERED: Bisacodyl 10 MG RECTAL SUPPOSITORY RC PRN (15:41)
[2021-01-13] MEDS: DilTIAZem CD (24hr) 120 MG CAP.ER.24H PO SCH (17:24)
[2021-01-13] MEDS: ALPRAZolam 1 MG TABLET PO SCH (20:14)
[2021-01-13] MEDS: Famotidine 20 MG TABLET PO SCH (20:14)
[2021-01-13] MEDS: ALPRAZolam 0.5 MG TABLET PO SCH (20:14)
[2021-01-13] MEDS: levETIRAcetam 250 MG TABLET PO SCH (20:14)
[2021-01-13] MEDS: Melatonin 3 MG TABLET PO SCH (20:14)
[2021-01-13] MEDS: Sennosides/Docusate Sodium TABLET PO SCH (20:15)
[2021-01-13] MEDS: Lactulose Oral Soln 20 GM/30 ML UDC PO SCH (20:15)
[2021-01-13] MEDS: Gabapentin 400 MG CAPSULE PO SCH (20:15)
[2021-01-13] MEDS: rOPINIRole 1 MG TABLET PO SCH (20:15)
[2021-01-13] MEDS: Divalproex (12 HR) 250 MG TABLET PO SCH (20:15)
[2021-01-13] MEDS: risperiDONE 0.25 MG TABLET PO SCH (20:15)
[2021-01-13] MEDS: Budesonide/Formoterol 80/4.5 1 PUFF INH IH SCH (22:55)
[2021-01-14] MEDS: Ipratropium/Albuterol Neb 3 ML IH SCH ×4 (03:16→21:46)
[2021-01-14] MEDS: *HR* Enoxaparin 40 MG/0.4 ML SYRINGE SQ SCH (05:18)
[2021-01-14 06:00] LABS: BUN/Creatinine Ratio 47 (6-26); Blood Urea Nitrogen 17 mg/dL (8-23); Calcium 9.3 mg/dL (8.6-10.3); Carbon Dioxide 27 mEq/L (23-29); Chloride 101 mEq/L (98-107); Glucose 111 mg/dL (70-105); Magnesium 1.8 mg/dL (1.6-2.6); Osmolality,Calculated 288 (280-300); Potassium 4.2 mEq/L (3.5-5.1); Sodium 138 mEq/L (136-145); eGFR For African Americans > 60 (> 60); eGFR For Non-African Americans > 60 (> 60)
[2021-01-14 06:05] LABS: Basophils % 0.3 %; Eosinophils % 0.1 %; Hematocrit 40.5 % (35.3-44.9); Hemoglobin 12.3 g/dL (11.5-15.4); Immature Granulocytes % 0.3 % (0-4); Immature Platelets 4.3 % (1.1-6.1); Lymphocytes # 1.7 K/mcL (0.6-4.6); Lymphocytes % 25.6 %; Mean Corpuscular HGB Conc 30.4 g/dL (31.6-35.5); Mean Corpuscular Volume 92.3 fL (83.0-100.0); Mean Platelet Volume 10.1 fL (9.4-12.4); Monocytes # 0.7 K/mcL (0.0-1.3); Neutrophils # 4.3 K/mcL (1.6-8.9); Platelet Count 134 K/mcL (140-400); Red Blood Count 4.39 M/mcL (3.82-4.97); Red Cell Distribution Width 14.6 % (11.5-14.5); Segmented Neutrophils % 63.7 %; White Blood Count 6.7 K/mcL (4.3-11.1)
[2021-01-14] MEDS: *HR* OxyCODONE Immed Rel 5 MG TABLET PO PRN ×2 (06:34→20:24)
[2021-01-14] MEDS: ALPRAZolam 0.25 MG TABLET PO SCH ×2 (08:27→15:29)
[2021-01-14] MEDS: Lactulose Oral Soln 20 GM/30 ML UDC PO SCH ×2 (08:27→20:19)
[2021-01-14] MEDS: cefTRIAXone 1,000 MG in Water for inj. (sterile) 10 ML IVP SCH (08:27)
[2021-01-14] MEDS: risperiDONE 0.25 MG TABLET PO SCH ×2 (08:27→20:18)
[2021-01-14] MEDS: Azithromycin 500 MG in 0.9 % Sodium Chloride 250 ML IVPB SCH (08:28)
[2021-01-14] MEDS: Gabapentin 400 MG CAPSULE PO SCH ×3 (08:28→20:18)
[2021-01-14] MEDS: predniSONE 20 MG TABLET PO SCH (08:28)
[2021-01-14] MEDS: DilTIAZem CD (24hr) 120 MG CAP.ER.24H PO SCH (08:28)
[2021-01-14] MEDS: levETIRAcetam 250 MG TABLET PO SCH ×2 (08:28→20:18)
[2021-01-14] MEDS: Divalproex (12 HR) 250 MG TABLET PO SCH ×2 (08:28→20:18)
[2021-01-14] MEDS: Sennosides/Docusate Sodium TABLET PO SCH ×2 (08:28→20:17)
[2021-01-14] MEDS ORDERED: NON-FORMULARY MEDICATION 1 EACH EACH (Tiotropium Bromide [Spiriva Handihaler] 18 MCG Cap.W IH SCH (09:00)
[2021-01-14] MEDS: Budesonide/Formoterol 80/4.5 1 PUFF INH IH SCH ×2 (11:40→21:46)
[2021-01-14] MEDS: rOPINIRole 1 MG TABLET PO SCH (20:18)
[2021-01-14] MEDS: Famotidine 20 MG TABLET PO SCH (20:18)
[2021-01-14] MEDS: ALPRAZolam 1 MG TABLET PO SCH (20:18)
[2021-01-14] MEDS: ALPRAZolam 0.5 MG TABLET PO SCH (20:18)
[2021-01-14] MEDS: Melatonin 3 MG TABLET PO SCH (20:18)
[2021-01-15] MEDS: Ipratropium/Albuterol Neb 3 ML IH SCH ×2 (03:55→10:06)
[2021-01-15] MEDS: *HR* Enoxaparin 40 MG/0.4 ML SYRINGE SQ SCH (05:16)
[2021-01-15] MEDS: Azithromycin 500 MG in 0.9 % Sodium Chloride 250 ML IVPB SCH (07:59)
[2021-01-15] MEDS: cefTRIAXone 1,000 MG in Water for inj. (sterile) 10 ML IVP SCH (08:03)
[2021-01-15] MEDS: Gabapentin 400 MG CAPSULE PO SCH (08:14)
[2021-01-15] MEDS: DilTIAZem CD (24hr) 120 MG CAP.ER.24H PO SCH (08:15)
[2021-01-15] MEDS: Divalproex (12 HR) 250 MG TABLET PO SCH (08:15)
[2021-01-15] MEDS: Lactulose Oral Soln 20 GM/30 ML UDC PO SCH (08:15)
[2021-01-15] MEDS: ALPRAZolam 0.25 MG TABLET PO SCH (08:15)
[2021-01-15] MEDS: Sennosides/Docusate Sodium TABLET PO SCH (08:15)
[2021-01-15] MEDS: levETIRAcetam 250 MG TABLET PO SCH (08:15)
[2021-01-15] MEDS: predniSONE 20 MG TABLET PO SCH (08:15)
[2021-01-15] MEDS: risperiDONE 0.25 MG TABLET PO SCH (08:15)
[2021-01-15] MEDS: Budesonide/Formoterol 80/4.5 1 PUFF INH IH SCH (10:06)
[2021-01-15 10:55] VITALS: BP 125/70
== END 2021-01-15 12:09 ==
LOC: 3BNU 05:35 → EMEROOARM 05:35 → SUATTDRO 09:21 → 3BNU 10:38
PROVIDERS: ADMIT Internal Medicine; ATTEND Internal Medicine

== ENCOUNTER 2021-07-15 22:11 | Observation (INO) ==
[2021-07-15 23:57] LABS: Basophils % 0.3 %; Hemoglobin 12.2 g/dL (11.5-15.4); Mean Corpuscular Hemoglobin 30.9 pg (28.0-33.3); Red Blood Count 3.95 M/mcL (3.82-4.97)
[2021-07-15 23:59] LABS: Eosinophils # 0.2 K/mcL (0.0-0.6); Eosinophils % 2.7 %; Hematocrit 37.2 % (35.3-44.9); Immature Granulocytes % 0.3 % (0-4); Immature Platelets 2.9 % (1.1-6.1); Lymphocytes # 2.4 K/mcL (0.6-4.6); Lymphocytes % 32.1 %; Mean Corpuscular HGB Conc 32.8 g/dL (31.6-35.5); Mean Corpuscular Volume 94.2 fL (83.0-100.0); Mean Platelet Volume 9.9 fL (9.4-12.4); Monocytes # 0.9 K/mcL (0.0-1.3); Monocytes % 11.4 %; Platelet Count 152 K/mcL (140-400); Red Cell Distribution Width 12.8 % (11.5-14.5); Segmented Neutrophils % 53.2 %; White Blood Count 7.5 K/mcL (4.3-11.1)
[2021-07-16 00:18] LABS: BUN/Creatinine Ratio 53 (6-26); Blood Urea Nitrogen 26 mg/dL (8-23); Calcium 8.8 mg/dL (8.6-10.3); Carbon Dioxide 29 mEq/L (23-29); Chloride 103 mEq/L (98-107); Glucose 96 mg/dL (70-105); Osmolality,Calculated 293 (280-300); Potassium 3.9 mEq/L (3.5-5.1); Sodium 139 mEq/L (136-145); eGFR For African Americans > 60 (> 60); eGFR For Non-African Americans > 60 (> 60)
[2021-07-16 00:19] LABS: Troponin I < 0.03 ng/mL (< 0.04)
[2021-07-16 00:29] LABS: Platelet Estimate Normal (Normal); Reactive Lymphocytes Present (Not Present)
[2021-07-16 00:40] LABS: Adenovirus Not Detected (Not Detect); Bordetella Pertussis Not Detected (Not Detect); Chlamydophila pneumoniae Not Detected (Not Detect); Coronavirus 229E Not Detected (Not Detect); Coronavirus HKU1 Not Detected (Not Detect); Coronavirus NL63 Not Detected (Not Detect); Coronavirus OC43 Not Detected (Not Detect); Human Metapneumovirus Not Detected (Not Detect); Human Rhinovirus/Enterovirus Not Detected (Not Detect); Influenza A Subtype 2009 H1 Not Detected (Not Detect); Influenza B Not Detected (Not Detect); Mycoplasma pneumoniae Not Detected (Not Detect); Parainfluenza Virus 1 Not Detected (Not Detect); Parainfluenza Virus 2 Not Detected (Not Detect); Parainfluenza Virus 3 Not Detected (Not Detect); Parainfluenza Virus 4 Not Detected (Not Detect); Respiratory Syncytial Virus Not Detected (Not Detect); SARS-CoV-2 Not Detected (Not Detect)
[2021-07-16] MEDS ORDERED: Aspirin 81 MG TAB.CHEW PO ONE (01:18)
[2021-07-16] MEDS ORDERED: Ondansetron 4 MG/2 ML VIAL IVP ONE (01:57)
[2021-07-16] MEDS ORDERED: Ondansetron 4 MG/2 ML VIAL IVP PRN (03:19)
[2021-07-16] MEDS ORDERED: Naloxone 0.4 MG/ML INJ IVP PRN (03:19)
[2021-07-16] MEDS ORDERED: Acetaminophen 325 MG TABLET PO PRN (03:19)
[2021-07-16] MEDS ORDERED: Perflutren Lipid Microsphere 1.3 ML in 0.9 % Sodium Chloride 8.7 ML IVP PRN (03:21)
[2021-07-16 06:07] LABS: Basophils % 0.3 %; Eosinophils # 0.2 K/mcL (0.0-0.6); Eosinophils % 2.9 %; Hematocrit 38.5 % (35.3-44.9); Hemoglobin 12.2 g/dL (11.5-15.4); Immature Granulocytes % 0.3 % (0-4); Immature Platelets 3.2 % (1.1-6.1); Lymphocytes # 1.9 K/mcL (0.6-4.6); Lymphocytes % 32.2 %; Mean Corpuscular HGB Conc 31.7 g/dL (31.6-35.5); Mean Corpuscular Hemoglobin 30.1 pg (28.0-33.3); Mean Corpuscular Volume 95.1 fL (83.0-100.0); Mean Platelet Volume 9.7 fL (9.4-12.4); Monocytes # 0.6 K/mcL (0.0-1.3); Neutrophils # 3.1 K/mcL (1.6-8.9); Platelet Count 142 K/mcL (140-400); Red Blood Count 4.05 M/mcL (3.82-4.97); Red Cell Distribution Width 12.9 % (11.5-14.5); Segmented Neutrophils % 53.3 %; White Blood Count 5.8 K/mcL (4.3-11.1)
[2021-07-16 06:11] LABS: Prothrombin Time 11.5 Seconds (9.4-12.1)
[2021-07-16] MEDS ORDERED: Regadenoson 0.4 MG/5 ML SYRINGE IVP ONE (06:24)
[2021-07-16 08:14] LABS: Alanine Aminotransferase 5 Units/L (7-52); Albumin 3.5 g/dL (3.5-5.7); Albumin/Globulin Ratio 1.2 (1.1-2.2); Alkaline Phosphatase 58 Units/L (34-104); Aspartate Amino Transferase 10 Units/L (13-39); BUN/Creatinine Ratio 50 (6-26); Bilirubin,Total 0.4 mg/dL (0.3-1.0); Blood Urea Nitrogen 22 mg/dL (8-23); Calcium 9.2 mg/dL (8.6-10.3); Carbon Dioxide 30 mEq/L (23-29); Chloride 101 mEq/L (98-107); Chol/HDL Ratio 2.5 (0-4.9); Cholesterol 123 mg/dL (< 200); Globulin 2.9 g/dL (2.4-3.5); Glucose 92 mg/dL (70-105); HDL Cholesterol 50 mg/dL (40-59); LDL Cholesterol,Calculated 55 mg/dL (< 100); Magnesium 1.8 mg/dL (1.6-2.6); Osmolality,Calculated 289 (280-300); Sodium 138 mEq/L (136-145); Thyroid Stimulating Hormone 1.092 mcIU/mL (0.340-5.600); Total Protein 6.4 g/dL (6.4-8.9); Triglycerides 89 mg/dL (< 150); eGFR For African Americans > 60 (> 60); eGFR For Non-African Americans > 60 (> 60)
[2021-07-16 09:11] LABS: Bacteria,Urine Few per hpf (None-Few); Bilirubin,Urine Negative (Negative); Blood,Urine Negative (Negative); Clarity,Urine Turbid (Clear); Color,Urine Light-Yellow (Yellow); Glucose,Urine (UA) Normal (Normal); Ketones,Urine Negative (Negative); Leukocyte Esterase,Urine Small (Negative); Mucus,Urine Few per lpf (None-Few); Nitrite,Urine Positive (Negative); PH,Urine 7.5 pH Units (5.0-8.0); Protein,Urine Negative (Neg-Trace); RBC,Urine 0-3 per hpf (0-3); Specific Gravity,Urine 1.016 (1.010-1.025); Squamous Epithelial Cell,Urine Few per hpf (None-Few); Urobilinogen,Urine Normal (Normal)
[2021-07-16 18:59] VITALS: BP 129/70; PULSE 68; TEMP 97.9; O2SAT 94
== END 2021-07-16 21:40 ==
LOC: EMEROOARM 22:11 → CDU 22:11 → SUATTDRO 07-16 02:31 → CDU 07-16 02:50 → 3BNU 07-16 15:38
PROVIDERS: ADMIT Internal Medicine; ATTEND Hospitalist